=== PATIENT | female | born 1935 | race Caucasian/White ===

== ENCOUNTER → 2018-04-29 | Outpatient (REF) | payer OTHER, MEDICARE ==
[2018-04-29 09:28] LABS: BASO % 0.3 % (0.0-1.0); EOS # 0.2 10^3/uL (0.0-0.50); EOS % 3.2 % (0.0-3.0); HEMATOCRIT 39.3 % (36.0-47.0); HEMOGLOBIN 12.8 g/dl (12.0-15.5); IMMATURE GRANULOCYTE % 0.5 % (0-3.0); LYMPH # 2.4 10^3/uL (1.5-4.5); LYMPH % 32.3 % (24.0-44.0); MEAN CORPUSCULAR HEMOGLOBIN 30.4 pg (27.0-33.0); MEAN CORPUSCULAR HGB CONC 32.6 g/dl (32.0-36.5); MEAN CORPUSCULAR VOLUME 93.3 fl (80.0-96.0); MONO # 0.6 10^3/uL (0.0-0.8); MONO % 8.1 % (0.0-5.0); NEUTROPHILS # 4.2 10^3/uL (1.8-7.7); NEUTROPHILS % 55.6 % (36.0-66.0); PLATELET COUNT, AUTOMATED 292 10^3/uL (150-450); RED BLOOD COUNT 4.21 10^6/uL (4.00-5.40); RED CELL DISTRIBUTION WIDTH 13.3 % (11.5-14.5); WHITE BLOOD COUNT 7.6 10^3/uL (4.0-10.0)
[2018-04-29 09:53] LABS: ESTIMATED AVERAGE GLUCOSE 120 MG/DL (60-110); HEMOGLOBIN A1c 5.8 %
[2018-04-29 10:06] LABS: ALBUMIN 3.8 GM/DL (3.2-5.2); ALBUMIN/GLOBULIN RATIO 1.23 (1.00-1.93); ALKALINE PHOSPHATASE 92 U/L (45-117); ALT/SGPT 29 U/L (12-78); ANION GAP 10 MEQ/L (8-16); AST/SGOT 15 U/L (7-37); BILIRUBIN,TOTAL 0.5 MG/DL (0.2-1.0); BLOOD UREA NITROGEN 11 MG/DL (7-18); CALCIUM LEVEL 8.7 MG/DL (8.8-10.2); CARBON DIOXIDE LEVEL 25 MEQ/L (21-32); CHLORIDE LEVEL 105 MEQ/L (98-107); CHOLESTEROL LEVEL 212 MG/DL (<200); CHOLESTEROL RISK RATIO 3.419 (<5); CREATININE FOR GFR 0.52 MG/DL (0.55-1.30); FREE T4 1.08 NG/DL (0.76-1.46); GLOMERULAR FILTRATION RATE > 60.0 (>32); GLUCOSE, FASTING 112 MG/DL (70-100); HDL CHOLESTEROL 62 MG/DL (>40); LDL CHOLESTEROL 124 MG/DL (<100); MAGNESIUM LEVEL 2.1 MG/DL (1.8-2.4); NON-HDL-C 150 MG/DL; POTASSIUM SERUM 4.2 MEQ/L (3.5-5.1); SODIUM LEVEL 140 MEQ/L (136-145); TOTAL PROTEIN 6.9 GM/DL (6.4-8.2); TRIGLYCERIDES LEVEL 131 MG/DL (<150)
[2018-04-29 10:21] LABS: PTH INTACT 149.5 PG/ML (18.5-88.0); TOTAL 25(OH) VITAMIN D 40.4 NG/ML (30.0-100.0)
== END ==
DX: E03.9 Hypothyroidism, unspecified (principal); I10 Essential (primary) hypertension; E55.9 Vitamin D deficiency, unspecified; E78.5 Hyperlipidemia, unspecified; Z79.899 Other long term (current) drug therapy
CPT/HCPCS: 83735

== ENCOUNTER → 2018-07-01 | Outpatient (REF) | payer OTHER, MEDICARE ==
[2018-07-02 13:10] LABS: APPEARANCE, URINE HAZY (CLEAR); BACTERIA, URINE AUTO 2+ (NEGATIVE); BILIRUBIN, URINE AUTO NEGATIVE (NEGATIVE); BLOOD, URINE BLOOD NEGATIVE (NEGATIVE); COLOR, URINE YELLOW (YELLOW); GLUCOSE, URINE (UA) AUTO NEGATIVE (NEGATIVE); KETONE, URINE AUTO NEGATIVE (NEGATIVE); LEUKOCYTE ESTERASE, URINE AUTO 1+ (NEGATIVE); MUCUS, URINE SMALL (NEGATIVE); NITRITE, URINE AUTO POSITIVE (NEGATIVE); PROTEIN, URINE AUTO NEGATIVE (NEGATIVE); RBC, URINE AUTO 1 /HPF (0-3); SPECIFIC GRAVITY URINE AUTO 1.005 (1.002-1.035); SQUAMOUS EPITHELIAL CELL UR AU 0 /HPF (0-6); UROBILINOGEN, URINE AUTO 0.2 mg/dL (0.0-2.0); WBC, URINE AUTO 9 /HPF (0-3)
== END ==
LOC: M LAB REF 12:46
PROVIDERS: ATTEND Obstetrics & Gynecology
DX: Z91.89 Other specified personal risk factors, not elsewhere classified (principal); N32.81 Overactive bladder

== ENCOUNTER → 2018-11-10 | Outpatient (REF) | payer MEDICARE, OTHER ==
[2018-11-10 14:01] LABS: APPEARANCE, URINE CLEAR (CLEAR); BACTERIA, URINE AUTO 3+ (NEGATIVE); BILIRUBIN, URINE AUTO NEGATIVE (NEGATIVE); BLOOD, URINE BLOOD NEGATIVE (NEGATIVE); COLOR, URINE STRAW (YELLOW); GLUCOSE, URINE (UA) AUTO NEGATIVE (NEGATIVE); KETONE, URINE AUTO NEGATIVE (NEGATIVE); LEUKOCYTE ESTERASE, URINE AUTO TRACE (NEGATIVE); NITRITE, URINE AUTO NEGATIVE (NEGATIVE); PROTEIN, URINE AUTO NEGATIVE (NEGATIVE); RBC, URINE AUTO 1 /HPF (0-3); SPECIFIC GRAVITY URINE AUTO 1.004 (1.002-1.035); SQUAMOUS EPITHELIAL CELL UR AU 0 /HPF (0-6); UROBILINOGEN, URINE AUTO 0.2 mg/dL (0.0-2.0); WBC, URINE AUTO 2 /HPF (0-3)
== END ==
LOC: M SFHCPLAZ 12:22
PROVIDERS: ATTEND Nurse Practitioner Family
DX: R32 Unspecified urinary incontinence (principal)

== ENCOUNTER → 2019-01-09 | Outpatient (REF) | payer MEDICARE, OTHER ==
[2019-01-09 16:02] LABS: APPEARANCE, URINE CLEAR (CLEAR); BACTERIA, URINE AUTO 1+ (NEGATIVE); BILIRUBIN, URINE AUTO NEGATIVE (NEGATIVE); BLOOD, URINE BLOOD NEGATIVE (NEGATIVE); COLOR, URINE STRAW (YELLOW); GLUCOSE, URINE (UA) AUTO NEGATIVE (NEGATIVE); KETONE, URINE AUTO NEGATIVE (NEGATIVE); LEUKOCYTE ESTERASE, URINE AUTO TRACE (NEGATIVE); MUCUS, URINE SMALL (NEGATIVE); NITRITE, URINE AUTO NEGATIVE (NEGATIVE); PROTEIN, URINE AUTO NEGATIVE (NEGATIVE); RBC, URINE AUTO 0 /HPF (0-3); SPECIFIC GRAVITY URINE AUTO 1.004 (1.002-1.035); SQUAMOUS EPITHELIAL CELL UR AU 0 /HPF (0-6); UROBILINOGEN, URINE AUTO 0.2 mg/dL (0.0-2.0); WBC, URINE AUTO 4 /HPF (0-3)
== END ==
LOC: M LAB REF 09:38
PROVIDERS: ATTEND Family Medicine
DX: R41.82 Altered mental status, unspecified (principal)

== ENCOUNTER → 2019-01-12 | Outpatient (REF) | payer MEDICARE, OTHER ==
[2019-01-12 09:53] LABS: BASO % 0.2 % (0.0-1.0); EOS # 0.2 10^3/uL (0.0-0.50); EOS % 2.7 % (0.0-3.0); HEMOGLOBIN 12.5 g/dl (12.0-15.5); LYMPH # 2.5 10^3/uL (1.5-4.5); MEAN CORPUSCULAR HEMOGLOBIN 30.6 pg (27.0-33.0); MEAN CORPUSCULAR HGB CONC 32.9 g/dl (32.0-36.5); MEAN CORPUSCULAR VOLUME 92.9 fl (80.0-96.0); MONO # 0.6 10^3/uL (0.0-0.8); MONO % 7.4 % (0.0-5.0); NEUTROPHILS # 4.9 10^3/uL (1.8-7.7); NEUTROPHILS % 59.3 % (36.0-66.0); PLATELET COUNT, AUTOMATED 277 10^3/uL (150-450); RED BLOOD COUNT 4.09 10^6/uL (4.00-5.40); WHITE BLOOD COUNT 8.3 10^3/uL (4.0-10.0)
[2019-01-12 10:20] LABS: HEMOGLOBIN A1c 6.4 %
[2019-01-12 10:30] LABS: ALBUMIN 3.6 GM/DL (3.2-5.2); ALT/SGPT 16 U/L (12-78); BILIRUBIN,TOTAL 0.3 MG/DL (0.2-1.0); BLOOD UREA NITROGEN 10 MG/DL (7-18); CARBON DIOXIDE LEVEL 28 MEQ/L (21-32); CHLORIDE LEVEL 103 MEQ/L (98-107); CHOLESTEROL LEVEL 161 MG/DL (<200); CHOLESTEROL RISK RATIO 2.236 (<5); CREATININE FOR GFR 0.49 MG/DL (0.55-1.30); FREE T4 1.03 NG/DL (0.76-1.46); GLOMERULAR FILTRATION RATE > 60.0 (>32); GLUCOSE, FASTING 87 MG/DL (70-100); HDL CHOLESTEROL 72 MG/DL (>40); LDL CHOLESTEROL 70 MG/DL (<100); MAGNESIUM LEVEL 2.2 MG/DL (1.8-2.4); NON-HDL-C 89 MG/DL; POTASSIUM SERUM 3.9 MEQ/L (3.5-5.1); SODIUM LEVEL 140 MEQ/L (136-145); TOTAL PROTEIN 6.6 GM/DL (6.4-8.2); TRIGLYCERIDES LEVEL 94 MG/DL (<150)
[2019-01-12 10:31] LABS: TOTAL 25(OH) VITAMIN D 31.9 NG/ML (30.0-100.0); VITAMIN B12 LEVEL 297 PG/ML (247-911)
== END ==
PROVIDERS: ATTEND Nurse Practitioner Family
DX: I10 Essential (primary) hypertension (principal); E03.9 Hypothyroidism, unspecified; R73.09 Other abnormal glucose; E78.5 Hyperlipidemia, unspecified; E55.9 Vitamin D deficiency, unspecified; R41.3 Other amnesia

== ENCOUNTER → 2019-01-22 | Outpatient (REF) | payer MEDICARE, OTHER ==
[2019-01-22 16:51] LABS: APPEARANCE, URINE CLEAR (CLEAR); BACTERIA, URINE AUTO 1+ (NEGATIVE); BILIRUBIN, URINE AUTO NEGATIVE (NEGATIVE); BLOOD, URINE BLOOD NEGATIVE (NEGATIVE); COLOR, URINE YELLOW (YELLOW); GLUCOSE, URINE (UA) AUTO NEGATIVE (NEGATIVE); KETONE, URINE AUTO NEGATIVE (NEGATIVE); LEUKOCYTE ESTERASE, URINE AUTO 1+ (NEGATIVE); NITRITE, URINE AUTO NEGATIVE (NEGATIVE); PROTEIN, URINE AUTO NEGATIVE (NEGATIVE); RBC, URINE AUTO 3 /HPF (0-3); SPECIFIC GRAVITY URINE AUTO 1.014 (1.002-1.035); SQUAMOUS EPITHELIAL CELL UR AU 0 /HPF (0-6); WBC, URINE AUTO 20 /HPF (0-3)
== END ==
PROVIDERS: ATTEND Nurse Practitioner Family
DX: N39.0 Urinary tract infection, site not specified (principal)

== ENCOUNTER → 2019-02-09 | Outpatient (REF) | payer MEDICARE, OTHER | LOC: M SMT 17:20 | PROVIDERS: ATTEND Urology | DX: N39.0 Urinary tract infection, site not specified (principal) | CPT/HCPCS: 51701; 87088; 87186; G0463 ==

== ENCOUNTER → 2019-04-27 | Outpatient (CLI) | payer MEDICARE, OTHER ==
--- NOTE | 2019-04-27 12:55 | REP ---
Clinical: Cough. Technique: PA and lateral. Comparison: 03/17/2016. Findings: [place] rods overlying the thoracolumbar spine and mediastinum. The cardiac silhouette is grossly within normal limits. Lung grimes demonstrate chronic-appearing changes without obvious acute consolidation, effusion, or pneumothorax. Impression: Chronic-appearing changes. No obvious acute cardiopulmonary process. Electronically Signed by Arie Georges MD 04/27/2019 12:47 P
[2019-04-27 14:12] LABS: BASO % 0.6 % (0.0-1.0); EOS # 0.2 10^3/uL (0.0-0.5); EOS % 2.9 % (0.0-3.0); HEMATOCRIT 40.5 % (36.0-47.0); HEMOGLOBIN 13.1 g/dl (12.0-15.5); LYMPH # 2.4 10^3/uL (1.5-5.0); LYMPH % 32.6 % (24.0-44.0); MEAN CORPUSCULAR HEMOGLOBIN 30.8 pg (27.0-33.0); MEAN CORPUSCULAR HGB CONC 32.3 g/dl (32.0-36.5); MEAN CORPUSCULAR VOLUME 95.1 fl (80.0-96.0); MONO # 0.8 10^3/uL (0.0-0.8); MONO % 10.7 % (0.0-5.0); NEUTROPHILS # 3.8 10^3/uL (1.5-8.5); NEUTROPHILS % 52.8 % (36.0-66.0); PLATELET COUNT, AUTOMATED 264 10^3/uL (150-450); RED BLOOD COUNT 4.26 10^6/uL (4.00-5.40); WHITE BLOOD COUNT 7.3 10^3/uL (4.0-10.0)
[2019-04-27 14:41] LABS: ALBUMIN 3.6 GM/DL (3.2-5.2); ALT/SGPT 21 U/L (12-78); BILIRUBIN,TOTAL 0.3 MG/DL (0.2-1.0); BLOOD UREA NITROGEN 11 MG/DL (7-18); CALCIUM LEVEL 9.4 MG/DL (8.8-10.2); CARBON DIOXIDE LEVEL 31 MEQ/L (21-32); CHLORIDE LEVEL 105 MEQ/L (98-107); CREATININE FOR GFR 0.56 MG/DL (0.55-1.30); GLOMERULAR FILTRATION RATE > 60.0 (>32); GLUCOSE, FASTING 91 MG/DL (70-100); POTASSIUM SERUM 4.2 MEQ/L (3.5-5.1); SODIUM LEVEL 141 MEQ/L (136-145)
== END ==
LOC: M WUC 12:28
PROVIDERS: ATTEND Physician Assistant
DX: R05 Cough (principal); J06.9 Acute upper respiratory infection, unspecified

== ENCOUNTER 2019-05-19 22:33 | Emergency (ER) | payer MEDICARE, OTHER, MEDICAID ==
[~2019-05-19] VITALS: Ht 157.5 cm; Wt 106.8 kg
[2019-05-19] MEDS ORDERED: ACETAMINOPHEN 500 MG TAB PO ONE (23:00)
--- NOTE | 2019-05-19 23:56 | REPVR ---
PROCEDURE INFORMATION: Exam: CT Thoracic Spine Without Contrast Exam date and time: 05/19/2019 10:48 PM Age: 83 years old Clinical indication: Pain in thoracic spine TECHNIQUE: Imaging protocol: Computed tomography images of the thoracic spine without contrast. Radiation optimization: All CT scans at this facility use at least one of these dose optimization techniques: automated exposure control; mA and/or kV adjustment per patient size (includes targeted exams where dose is matched to clinical indication); or iterative reconstruction. COMPARISON: No relevant prior studies available. FINDINGS: Vertebrae: Changes from extensive thoracolumbar spinal fusion are present. Old compression fracture at T5-6 with grade 3 anterolisthesis. Additional old compression deformities at T9 and T10 with prior vertebroplasty at T10. No acute fracture is identified. Extensive posterior fusion of the posterior elements is noted. Discs/Spinal canal/Neural foramina: The left T11 screw appears to partially traverse the lateral aspect of the central spinal canal. Other screws are in expected location. The right connecting mily is fractured at the L3-L4 level. Remainder of the hardware appears to be intact. Transpedicular screws appear intact. Soft tissues: Unremarkable. IMPRESSION: 1. Changes of extensive posterior fusion as above. 2. Old compression deformity at T5-6 with anterolisthesis. Old compression deformities at T9-10. No acute fracture or other subluxation. Electronically signed by: Gilbert Walker On 05/19/2019 23:55:50 PM
[2019-05-20 00:01] VITALS: BP 197/86
== END 2019-05-20 00:41 | disposition home or self-care (01) ==
LOC: M ED 22:33
DX: G89.29 Other chronic pain (principal); M54.9 Dorsalgia, unspecified; I10 Essential (primary) hypertension; E78.5 Hyperlipidemia, unspecified; M41.9 Scoliosis, unspecified; Z86.73 Personal history of transient ischemic attack (TIA), and cerebral infarction without residual deficits; E66.9 Obesity, unspecified; Z88.5 Allergy status to narcotic agent; Z88.8 Allergy status to other drugs, medicaments and biological substances

== ENCOUNTER → 2019-05-22 | Outpatient (REF) | payer MEDICARE, OTHER, MEDICAID ==
[2019-05-22 12:09] LABS: APPEARANCE, URINE CLOUDY (CLEAR); BACTERIA, URINE AUTO 3+ (NEGATIVE); BILIRUBIN, URINE AUTO NEGATIVE (NEGATIVE); BLOOD, URINE BLOOD NEGATIVE (NEGATIVE); COLOR, URINE YELLOW (YELLOW); GLUCOSE, URINE (UA) AUTO NEGATIVE (NEGATIVE); KETONE, URINE AUTO TRACE mg/dL (NEGATIVE); LEUKOCYTE ESTERASE, URINE AUTO 3+ (NEGATIVE); MUCUS, URINE LARGE (NEGATIVE); NITRITE, URINE AUTO POSITIVE (NEGATIVE); PROTEIN, URINE AUTO NEGATIVE (NEGATIVE); RBC, URINE AUTO 10 /HPF (0-3); SPECIFIC GRAVITY URINE AUTO 1.027 (1.002-1.035); SQUAMOUS EPITHELIAL CELL UR AU 2 /HPF (0-6); UROBILINOGEN, URINE AUTO 0.2 mg/dL (0.0-2.0); WBC, URINE AUTO 130 /HPF (0-3)
== END ==
LOC: M LAB REF 11:24
PROVIDERS: ATTEND Nurse Practitioner Family
DX: N39.0 Urinary tract infection, site not specified (principal)

== ENCOUNTER → 2019-10-08 | Outpatient (REF) | payer MEDICARE, OTHER, MEDICAID ==
[2019-10-08 13:40] LABS: BASO % 0.3 % (0.0-1.0); EOS # 0.2 10^3/uL (0.0-0.5); EOS % 2.2 % (0.0-3.0); HEMATOCRIT 34.4 % (36.0-47.0); HEMOGLOBIN 11.4 g/dl (12.0-15.5); LYMPH # 2.7 10^3/uL (1.5-5.0); LYMPH % 30.4 % (24.0-44.0); MEAN CORPUSCULAR HEMOGLOBIN 31.2 pg (27.0-33.0); MEAN CORPUSCULAR HGB CONC 33.1 g/dl (32.0-36.5); MEAN CORPUSCULAR VOLUME 94.2 fl (80.0-96.0); MONO # 0.7 10^3/uL (0.0-0.8); MONO % 7.7 % (0.0-5.0); NEUTROPHILS # 5.2 10^3/uL (1.5-8.5); NEUTROPHILS % 58.9 % (36.0-66.0); PLATELET COUNT, AUTOMATED 261 10^3/uL (150-450); RED BLOOD COUNT 3.65 10^6/uL (4.00-5.40); WHITE BLOOD COUNT 8.8 10^3/uL (4.0-10.0)
[2019-10-08 14:36] LABS: ALBUMIN 3.5 GM/DL (3.2-5.2); ALT/SGPT 18 U/L (12-78); BILIRUBIN,TOTAL 0.2 MG/DL (0.2-1.0); BLOOD UREA NITROGEN 14 MG/DL (7-18); CALCIUM LEVEL 8.9 MG/DL (8.8-10.2); CARBON DIOXIDE LEVEL 28 MEQ/L (21-32); CHLORIDE LEVEL 105 MEQ/L (98-107); CREATININE FOR GFR 0.48 MG/DL (0.55-1.30); GLOMERULAR FILTRATION RATE > 60.0 (>32); GLUCOSE, FASTING 113 MG/DL (70-100); POTASSIUM SERUM 3.9 MEQ/L (3.5-5.1); SODIUM LEVEL 139 MEQ/L (136-145); TOTAL PROTEIN 6.3 GM/DL (6.4-8.2)
[2019-10-08 17:33] LABS: APPEARANCE, URINE CLEAR (CLEAR); BACTERIA, URINE AUTO NEGATIVE (NEGATIVE); BILIRUBIN, URINE AUTO NEGATIVE (NEGATIVE); BLOOD, URINE BLOOD NEGATIVE (NEGATIVE); COLOR, URINE YELLOW (YELLOW); GLUCOSE, URINE (UA) AUTO NEGATIVE (NEGATIVE); KETONE, URINE AUTO NEGATIVE (NEGATIVE); LEUKOCYTE ESTERASE, URINE AUTO 1+ (NEGATIVE); NITRITE, URINE AUTO NEGATIVE (NEGATIVE); PROTEIN, URINE AUTO NEGATIVE (NEGATIVE); RBC, URINE AUTO 1 /HPF (0-3); SQUAMOUS EPITHELIAL CELL UR AU 0 /HPF (0-6); UROBILINOGEN, URINE AUTO 0.2 mg/dL (0.0-2.0); WBC, URINE AUTO 13 /HPF (0-3)
== END ==
PROVIDERS: ATTEND Family Medicine
DX: R41.0 Disorientation, unspecified (principal)

== ENCOUNTER → 2019-11-01 | Outpatient (REF) | payer MEDICARE, OTHER, MEDICAID | PROVIDERS: ATTEND Physician Assistant Medical | DX: R30.0 Dysuria (principal) ==

== ENCOUNTER → 2019-11-01 | Outpatient (REF) | payer MEDICARE, OTHER, MEDICAID ==
[2019-11-01 18:52] LABS: APPEARANCE, URINE CLEAR (CLEAR); BACTERIA, URINE AUTO NEGATIVE (NEGATIVE); BILIRUBIN, URINE AUTO NEGATIVE (NEGATIVE); BLOOD, URINE BLOOD NEGATIVE (NEGATIVE); COLOR, URINE YELLOW (YELLOW); GLUCOSE, URINE (UA) AUTO NEGATIVE (NEGATIVE); KETONE, URINE AUTO NEGATIVE (NEGATIVE); LEUKOCYTE ESTERASE, URINE AUTO 2+ (NEGATIVE); MUCUS, URINE SMALL (NEGATIVE); NITRITE, URINE AUTO NEGATIVE (NEGATIVE); PROTEIN, URINE AUTO NEGATIVE (NEGATIVE); RBC, URINE AUTO 2 /HPF (0-3); SPECIFIC GRAVITY URINE AUTO 1.016 (1.002-1.035); SQUAMOUS EPITHELIAL CELL UR AU 0 /HPF (0-6); UROBILINOGEN, URINE AUTO 0.2 mg/dL (0.0-2.0); WBC, URINE AUTO 45 /HPF (0-3)
== END ==
PROVIDERS: ATTEND Family Medicine
DX: R30.0 Dysuria (principal); R41.0 Disorientation, unspecified

== ENCOUNTER 2019-11-09 15:01 | Inpatient (IN) | payer MEDICARE, OTHER, MEDICAID ==
[2019-11-09 15:29] LABS: BASO % 0.3 % (0.0-1.0); EOS # 0.2 10^3/uL (0.0-0.5); EOS % 1.8 % (0.0-3.0); HEMOGLOBIN 11.3 g/dl (12.0-15.5); LYMPH # 3.3 10^3/uL (1.5-5.0); LYMPH % 38.6 % (24.0-44.0); MEAN CORPUSCULAR HEMOGLOBIN 30.6 pg (27.0-33.0); MEAN CORPUSCULAR HGB CONC 32.3 g/dl (32.0-36.5); MEAN CORPUSCULAR VOLUME 94.9 fl (80.0-96.0); MONO # 0.7 10^3/uL (0.0-0.8); MONO % 7.7 % (0.0-5.0); NEUTROPHILS # 4.4 10^3/uL (1.5-8.5); NEUTROPHILS % 51.4 % (36.0-66.0); PLATELET COUNT, AUTOMATED 259 10^3/uL (150-450); RED BLOOD COUNT 3.69 10^6/uL (4.00-5.40); WHITE BLOOD COUNT 8.7 10^3/uL (4.0-10.0)
[2019-11-09] MEDS ORDERED: LEVO50TA45 PO (15:44)
[2019-11-09] MEDS ORDERED: OCUVTAB4 PO (15:44)
[2019-11-09] MEDS ORDERED: GABA-1171 PO (15:44)
[2019-11-09] MEDS ORDERED: BRIM0.2S13 OU (15:44)
[2019-11-09] MEDS ORDERED: CALC1TAB27 PO (15:44)
[2019-11-09] MEDS ORDERED: LOSA50TA88 PO (15:44)
[2019-11-09] MEDS ORDERED: CRAN400C PO (15:44)
[2019-11-09] MEDS ORDERED: VITA100018 PO (15:44)
[2019-11-09] MEDS ORDERED: TIMO0.5S29 OU (15:44)
[2019-11-09] MEDS ORDERED: CELE100C PO (15:44)
[2019-11-09] MEDS ORDERED: CVS1CHW13 PO (15:44)
[2019-11-09] MEDS ORDERED: MIRA3350 PO ×2 (15:44)
[2019-11-09] MEDS ORDERED: ARIC1TAB PO (15:44)
[2019-11-09] MEDS ORDERED: ASPI-161 PO (15:44)
[2019-11-09] MEDS ORDERED: MEMA1TAB3 PO (15:44)
[2019-11-09] MEDS ORDERED: CYMB1CAP5 PO (15:44)
[2019-11-09] MEDS ORDERED: XALA0.007 OU (15:44)
[2019-11-09] MEDS ORDERED: QC A650T3 PO (15:44)
[2019-11-09] MEDS ORDERED: VITAD1000T PO (15:44)
[2019-11-09] MEDS ORDERED: CRES10TA PO (15:44)
[2019-11-09] MEDS ORDERED: COLA100C5 PO (15:44)
[2019-11-09] MEDS ORDERED: REFR0.1D OU (15:44)
[2019-11-09] MEDS ORDERED: ACET1TAB37 PO (15:44)
[2019-11-09] MEDS ORDERED: MACR50CA10 PO (15:44)
--- NOTE | 2019-11-09 16:04 | REP ---
CT brain: 11/09/2019. Indication: Stroke. Technique: Unenhanced axial CT images of the brain were obtained from skull base to vertex with coronal reconstructions provided. Comparison: 03/07/2016. Findings: There is a new punctate focus of hyperdensity within the left basal ganglia without associated mass effect or significant surrounding edema. An there is a similar-appearing punctate focus of hyperdensity within the right cerebellum, again without significant mass effect or surrounding edema. There is a new area of hypoattenuation which involves the cortex as well in the posterior left temporal lobe. Patchy areas of an white matter hypoattenuation are present. There is no evidence of hydrocephalous. Right-sided score of buckling is noted. Age-related volume loss is present. Impression: Subacute to chronic appearing posterior left temporal region / MCA infarction. Punctate foci of hyper attenuation within the left basal ganglia and right cerebellum. Small acute hemorrhages are not excluded. Chronic appearing left thalamic infarction. Age related volume loss and sequelae of chronic microangiopathic ischemic disease. Electronically Signed by Javier Marie DO 11/09/2019 03:55 P
[2019-11-09 16:19] LABS: CK-MB VALUE MASS 2.7 NG/ML (<3.6); CPK CREATINE PHOSPHOKINASE 73 U/L (26-192); TROPONIN I < 0.02 NG/ML (< 0.10)
[2019-11-09] MEDS ORDERED: LABETALOL 100MG/20ML VIAL IV STA ×2 (16:26→17:35)
[2019-11-09] MEDS ORDERED: MECLIZINE 25 MG TABLET PO ONE (16:30)
[2019-11-09 16:35] LABS: INR 1.04; PROTHROMBIN TIME 13.3 SECONDS (11.8-14.0)
--- NOTE | 2019-11-09 16:43 | REP ---
CHEST, SINGLE VIEW: Single view of the chest is performed. There is no acute infiltrate or pulmonary edema. There is mild to moderate cardiomegaly. There is calcification and tortuosity of the thoracic aorta. Metallic rods and screws are seen in the thoracic spine. IMPRESSION: No acute pulmonary disease. Cardiomegaly. Electronically Signed by Dean Michele MD 11/11/2019 12:55 A
[2019-11-09] MEDS ORDERED: NITROFURANTOIN (MACROBID) 100 MG CAP PO ONE (17:15)
--- NOTE | 2019-11-09 18:43 | HPEPDOC ---
[facility] Medical History & Physical Date of Admission Nov 09, 2019 Date of Service: Nov 09, 2019 Primary Care Physician: MARY LOU KITCHEN Attending Physician: JESÚS NESBITT MD History and Physical Time of service 6:33 PM CHIEF COMPLAINT: Headache HISTORY OF PRESENT ILLNESS: This is an 84-year-old female who developed a frontal headache today. When asked to describe the nature or the severity of the headache, she said she didn't quite know how to describe it. She also complained of feeling dizzy and weak. She has a history of hypertension and denies missing any doses of her medications. On arrival, blood pressure was 224/97. She received a total of 40 mg of IV labetalol; thereafter her blood pressure improved to 168/76. CT of the head showed a possible subacute infarct ROS: negative except as listed in HPI PAST MEDICAL/ SURGICAL HISTORY: Chronic HTN History of CVA Hypothyroidism Impaired memory/dementia? Dyslipidemia Open angle glaucoma Osteoporosis OA Chronic back pain/spinal stenosis / Laminectomy and spinal fusions, S1-L4, L4-T9 / placement of spinal stimulator GERD Age-related macular degeneration. Neurogenic bladder / Bladder suspension surgery Status post D&C. Resection of fibrous Hysterectomy Left breast biopsy Retinal detachment surgery for right eye Bilateral cataract surgery Oculoplastic, left eye Rotator cuff repair Steady gait, uses walker SOCIAL HISTORY: Lives at a jail He doesn't smoke FAMILY HISTORY: CAD Emphysema ALLERGIES: Please see below. HOME MEDICATIONS: Please see below. PHYSICAL EXAMINATION: VITAL SIGNS: Please see below. GEN: well-nourished / well developed/ NAD HEENT: NCAT CVS: RRR/NMRG LUNGS: able to speak full sentences without stopping to take a breath / lungs are clear to auscultation bilaterally on room air ABDOMEN: Contour ( obese) MSK/EXTREMITIES: range of motion intact in all 4 extremities NEURO: speech is not dysarthric PSYCH: alert and oriented to person place and time/ able to understand and follow all commands LABORATORY DATA: Immature Granulocyte % (Auto) 0.2, Neutrophils (%) (Auto) 51.4, Lymphocytes (%) (Auto) 38.6, Monocytes (%) (Auto) 7.7H, Eosinophils (%) (Auto) 1.8, Basophils (%) (Auto) 0.3, Neutrophils # (Auto) 4.4, Lymphocytes # (Auto) 3.3, Monocytes # (Auto) 0.7, Eosinophils # (Auto) 0.2, Basophils # (Auto) 0.0, Nucleated Red Blood Cells % (auto) 0.0 11/09/19 15:14: Prothrombin Time 13.3, Prothromb Time International Ratio 1.04 11/09/19 15:22: POC Glucose (Misc Panel) 115H, POC Sodium (Misc Panel) 138, POC Potassium (Misc Panel) 4.2, POC Chloride (Misc Panel) 98, POC Total CO2 (Misc Panel) 27.0, POC Blood Urea Nitrogen (Misc Panel 16, POC Ionized Calcium (Misc Panel) 4.7, POC Creatinine (Misc Panel) 0.5L, POC Hematocrit (Misc Panel) 36.0L, Total Creatine Kinase 73, Creatine Kinase MB 2.7, Creatine Kinase MB Relative Index 3.70, Troponin I < 0.02 11/09/19 15:35: Urine Color YELLOW, Urine Appearance CLEAR, Urine pH 7.0, Urine Specific [place] 1.009, Urine Protein NEGATIVE, Urine Glucose (UA) NEGATIVE, Urine Ketones NEGATIVE, Urine Blood NEGATIVE, Urine Nitrite NEGATIVE, Urine Bilirubin NEGATIVE, Urine Urobilinogen 0.2, Urine Leukocyte Esterase 1+H, Urine WBC (Auto) 13H, Urine RBC (Auto) 3, Urine Hyaline Casts (Auto) 0, Urine Bacteria (Auto) NEGATIVE, Urine Squamous Epithelial Cells 0, Urine Amorphous Sediment SMALLH, Urine Sperm (Auto) IMAGING: Chest x-ray "IMPRESSION: No acute pulmonary disease. Cardiomegaly." CT of the head "Impression: Subacute to chronic appearing posterior left temporal region / MCA infarction. Punctate foci of hyper attenuation within the left basal ganglia and right cerebellum. Small acute hemorrhages are not excluded. Chronic appearing left thalamic infarction. Age related volume loss and sequelae of chronic microangiopathic ischemic disease." MICROBIOLOGY: 11/09/19 Urine Culture, Received Pending ASSESSMENT: Ms. Damon is an 84-year-old with a history of hypertension, CVA, hypothyroidism, dyslipidemia, osteoporosis, OA, and unsteady gait who is admitted for evaluation of hypertensive urgency. PLAN: 1. Uncontrolled hypertension Hypertensive Urgency , resolved after receiving labetalol Her primary related symptoms are a headache and dizziness It's unclear what caused the acute elevation in her blood pressure at this point in time it could be Celebrex ? Her troponin and renal function are within normal limits. Plan: Admit to PCU / target BP of <160/100 /f/u TSH, MRI and MRA of the head to definitively rule out stroke / resume home meds losartan 50 mg daily + at amlodipine 5 mg daily / low salt diet / avoid NSAIDs including Celebrex/she may need a sleep study to rule out coexisting sleep apnea on an outpatient basis 2. Weakness - PT / f/u MRI/MRA 3. Hx of CVA/ dyslipidemia - ASA, rosuvastatin 4. hypothyroidism - levothyroxine 5. Chronic back pain - old Celebrex / scheduled Tylenol with diclofenac patch 6. Osteoporosis - calcium with vitamin D DVT PROPHYLAXIS: Lovenox DISPOSITION: Back to jail pending clinical course / PFS consult has been placed Home Medications Scheduled Acetaminophen (Acetaminophen ER) 650 Mg Tablet.er, 1,300 MG PO Q8H Amlodipine Besylate (Amlodipine Besylate) 5 Mg Tablet, 5 MG PO DAILY Aspirin (Aspirin EC) 81 Mg Tablet.dr, 81 MG PO DAILY Brimonidine Tartrate (Brimonidine Tartrate) 0.2% 5ML Drops, 1 DROP OU BID Calcium Carbonate/Vitamin D3 (Calcium 600-Vit D3 800 Tablet) 1 Each Tablet, 1 TAB PO DAILY Carboxymethylcellulose Sodium (Refresh Plus) 1 Each Droperette, 1 DROP OU TID SELF ADMINISTERS AT SSV Cholecalciferol (Vitamin D3) (Vitamin D3) 1,000 Unit Tablet, 1,000 UNITS PO QAM Cranberry (Cranberry) 400 Mg Capsule, 400 MG PO BID Cyanocobalamin (Vitamin B-12) (Vitamin B-12) 1,000 Mcg Tablet, 1,000 MCG PO DAILY Diclofenac Epolamine (Diclofenac Epolamine) 1 Each Patch.td12, 1 PATCH TOP Q12H Docusate Sodium (Colace) 100 Mg Capsule, 100 MG PO BID Donepezil HCl (Aricept) 5 Mg Tablet, 5 MG PO QHS Duloxetine Hcl (Cymbalta) 30 Mg Capsule.dr, 30 MG PO QHS Gabapentin (Gabapentin) 100 Mg Capsule, 100 MG PO BID TAKES AT 0600 & 1200 Inulin (Fiber Gummies) 2 Gm Tab.chew, 1 CHW PO BID Latanoprost (Xalatan) 0.005% 2.5ML Drops, 1 DROP OU QHS Levothyroxine Sodium (Levoxyl) 50 Mcg Tablet, 50 MCG PO QAM Losartan Potassium (Losartan Potassium) 50 Mg Tablet, 50 MG PO DAILY Memantine HCl (Memantine HCl) 5 Mg Tablet, 5 MG PO BID Nitrofurantoin Macrocrystal (Macrodantin) 50 Mg Capsule, 50 MG PO DAILY Polyethylene Glycol 3350 (Miralax) 119 Gm Powder, 17 GM PO 2XW TAKES MON & FRI Rosuvastatin Calcium (Crestor) 10 Mg Tablet, 10 MG PO QAM Timolol Maleate (Timolol Maleate) 0.5% 5ML Drops, 1 DROP OU BID Vit A/Vit C/Vit E/Zinc/Copper (Preservision Areds Tablet) 1 Each Tablet, 1 TAB PO BID Scheduled PRN Polyethylene Glycol 3350 (Miralax) 119 Gm Powder, 17 GM PO DAILY PRN for CONSTIPATION Allergies Coded Allergies: codeine (Verified Allergy, Unknown, 05/19/19) dexamethasone (Verified Allergy, Unknown, 05/19/19) A-FIB/CHADSVASC A-FIB History Current/History of A-Fib/PAF?: No Current PO Anticoag Therapy: No JESÚS NESBITT MD Nov 09, 2019 18:43
[2019-11-09 19:04] LABS: FERRITIN 32 NG/ML (8-252); IRON (FE) 65 UG/DL (50-170); TOTAL IRON BINDING CAPACITY 342 UG/DL (250-450)
[2019-11-09 20:03] VITALS: BP 180/60
--- NOTE | 2019-11-09 20:18 | ECGEPIP ---
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
[2019-11-09] MEDS: DICLOFENAC EPOLAMINE 1.3 % PATCH TOP SCH (21:16)
[2019-11-09] MEDS: ACETAMINOPHEN 650MG ER TAB (TYLENOL ARTHRITIS) PO SCH (21:17)
[2019-11-09] MEDS: DULoxetine 30 MG CAP (CYMBALTA) PO SCH (21:17)
[2019-11-09] MEDS: DONEPEZIL 5 MG TAB PO SCH (21:17)
[2019-11-09] MEDS: LATANOPROST 0.005% OPHTH SOLN 2.5 ML OU SCH (21:17)
[2019-11-09] MEDS: MEMANTINE 5MG TABLET (NAMENDA) PO SCH (21:17)
[2019-11-09 21:30] VITALS: BP 150/60
[2019-11-09] MEDS ORDERED: SLF 3 ML SYR IV PRN (22:00)
[2019-11-09] MEDS: SLF 3 ML SYR IV SCH (22:04)
[2019-11-10] VITALS (7 sets, daily range): BP systolic 129–144; BP diastolic 58–78
[2019-11-10] MEDS: LEVOTHYROXINE 50MCG TABLET (0.05MG) PO SCH (05:03)
[2019-11-10] MEDS: GABAPENTIN 100 MG CAP PO SCH ×2 (05:03→12:19)
[2019-11-10] MEDS: ACETAMINOPHEN 650MG ER TAB (TYLENOL ARTHRITIS) PO SCH ×3 (05:03→20:52)
[2019-11-10] MEDS: SLF 3 ML SYR IV SCH ×3 (05:04→14:39)
[2019-11-10 05:09] LABS: HEMATOCRIT 33.1 % (36.0-47.0); HEMOGLOBIN 10.8 g/dl (12.0-15.5); MEAN CORPUSCULAR HEMOGLOBIN 30.9 pg (27.0-33.0); MEAN CORPUSCULAR HGB CONC 32.6 g/dl (32.0-36.5); MEAN CORPUSCULAR VOLUME 94.6 fl (80.0-96.0); PLATELET COUNT, AUTOMATED 234 10^3/uL (150-450); WHITE BLOOD COUNT 9.4 10^3/uL (4.0-10.0)
[2019-11-10 05:31] LABS: BLOOD UREA NITROGEN 13 MG/DL (7-18); CALCIUM LEVEL 8.1 MG/DL (8.8-10.2); CARBON DIOXIDE LEVEL 28 MEQ/L (21-32); CHLORIDE LEVEL 110 MEQ/L (98-107); CREATININE FOR GFR 0.56 MG/DL (0.55-1.30); GLOMERULAR FILTRATION RATE > 60.0 (>32); GLUCOSE, FASTING 94 MG/DL (70-100); POTASSIUM SERUM 3.9 MEQ/L (3.5-5.1); SODIUM LEVEL 146 MEQ/L (136-145)
[2019-11-10] MEDS: MEMANTINE 5MG TABLET (NAMENDA) PO SCH ×2 (08:41→20:52)
[2019-11-10] MEDS: DICLOFENAC EPOLAMINE 1.3 % PATCH TOP SCH ×2 (08:41→20:52)
[2019-11-10] MEDS ORDERED: VITAMIN D 1,000 INTERNATIONAL UNITS TABLET PO SCH (09:00)
[2019-11-10] MEDS ORDERED: LOSARTAN 50MG TABLET PO SCH (09:00)
[2019-11-10] MEDS ORDERED: ASPIRIN 81 MG ENTERIC TAB PO SCH (09:00)
[2019-11-10] MEDS ORDERED: ROSUVASTATIN 10 MG TAB (CRESTOR) PO SCH (09:00)
[2019-11-10] MEDS ORDERED: amLODIPine 5 MG TAB PO SCH (09:00)
[2019-11-10] MEDS ORDERED: ENOXAPARIN 40MG/0.4ML SYRINGE (J1650 PER 10MG) SC SCH (09:00)
[2019-11-10] MEDS ORDERED: CALCIUM/VITAMIN D 500 MG TAB PO SCH (09:00)
--- NOTE | 2019-11-10 12:34 | IPNPDOC ---
Text Note Date of Service The patient was seen on 11/10/19. NOTE SUBJECTIVE: -Headache has resolved PHYSICAL EXAMINATION: VITAL SIGNS: Please see below. GEN: NAD HEENT: NCAT CVS: RRR, no m/r/g LUNGS: CTAB ABDOMEN: obese, soft, normoactive sounds, NTND EXTREMITIES: no LE edema, WWP NEURO: Grossly nonfocal examination with CN2-12 grossly intact and moving all extremities. PSYCH: AOx3 LABORATORY DATA: WBC 9.4 Hgb 10.8 platelets 234 na 146 K 3.9 Cr 0.56 IMAGING: Chest x-ray "IMPRESSION: No acute pulmonary disease. Cardiomegaly." CT of the head "Impression: Subacute to chronic appearing posterior left temporal region / MCA infarction. Punctate foci of hyper attenuation within the left basal ganglia and right cerebellum. Small acute hemorrhages are not excluded. Chronic appearing left thalamic infarction. Age related volume loss and sequelae of chronic microangiopathic ischemic disease." MICROBIOLOGY: 11/09/19 Urine Culture, NGTD ASSESSMENT: 84-year-old with a history of hypertension, CVA, hypothyroidism, dyslipidemia, osteoporosis, OA, and unsteady gait who is admitted for hypertensive urgency with evidence of a subacute infarct without . PLAN: 1. Uncontrolled hypertension: resolved after receiving labetalol -EKG stable from prior, troponin and renal function are within normal limits. -TSH wnl -continue home meds losartan 50 mg daily + at amlodipine 5 mg daily/ low salt diet / avoid NSAIDs including Celebrex/she may need a sleep study to rule out coexisting sleep apnea on an outpatient basis 2. Weakness: No actual deficits. Appears to be deconditioned. -PT/OT working with her, recommending STR -getting rapid covid-19 testing for placement 3. Hx of CVA - ASA, rosuvastatin 4. hypothyroidism - levothyroxine 5. dyslipidemia - rosuvastatin 6. osteoporosis - calcium with vitamin D 7. Chronic back pain - stop Celebrex, give scheduled Tylenol with diclofenac patch DVT PROPHYLAXIS: Lovenox DISPOSITION: Likely STR with ongoing PT/OT VS,Fishbone, I+O VS, Fishbone, I+O Laboratory Tests 11/09/19 15:11 11/10/19 04:53 Vital Signs Date Time Temp Pulse Resp B/P (MAP) Pulse Ox O2 Delivery O2 Flow Rate FiO2 11/10/19 08:40 141/65 11/10/19 07:56 97.0 66 18 94 Room Air I&O- Last 24 Hours up to 6 AM 11/10/19 06:00 Intake Total 240 ml Output Total 500 ml Balance -260 ml WILY ROBERTS MD Nov 10, 2019 09:40
[2019-11-10] MEDS ORDERED: DICL1PAT6 TOP (13:08)
[2019-11-10] MEDS ORDERED: AMLO5TAB6 PO (13:08)
[2019-11-10] MEDS ORDERED: ACE65ERTAB PO (13:08)
[2019-11-10] MEDS: DULoxetine 30 MG CAP (CYMBALTA) PO SCH (20:52)
[2019-11-10] MEDS: DONEPEZIL 5 MG TAB PO SCH (20:52)
[2019-11-10] MEDS: LATANOPROST 0.005% OPHTH SOLN 2.5 ML OU SCH (20:53)
[2019-11-11] VITALS: BP 158/62
[2019-11-11 04:00] VITALS: BP 160/60
[2019-11-11] MEDS: SLF 3 ML SYR IV SCH (06:06)
[2019-11-11] MEDS: GABAPENTIN 100 MG CAP PO SCH (06:06)
[2019-11-11] MEDS: ACETAMINOPHEN 650MG ER TAB (TYLENOL ARTHRITIS) PO SCH (06:06)
[2019-11-11] MEDS: LEVOTHYROXINE 50MCG TABLET (0.05MG) PO SCH (06:06)
--- NOTE | 2019-11-11 06:22 | DS.PDOC ---
Discharge Summary General Date of Admission Nov 09, 2019 at 18:28 Date of Discharge 11/11/2019 Attending Physician: WILY ROBERTS MD Discharge Summary PROCEDURES PERFORMED DURING STAY: None ADMITTING DIAGNOSES: 1. Hypertensive urgency DISCHARGE DIAGNOSES: Hypertensive urgency History of CVA Hypothyroidism Dementia Dyslipidemia Open angle glaucoma Osteoporosis OA Chronic back pain GERD Age-related macular degeneration. Neurogenic bladder COMPLICATIONS/CHIEF COMPLAINT: Hypertensive Urgency. HISTORY OF PRESENT ILLNESS: 84-year-old female who developed a frontal headache and felt dizzy and weak and was brought to the ED. She has a history of hypertension and denied missing any doses of her medications but on arrival, blood pressure was noted to be 224/97. HOSPITAL COURSE: While in the ED, she received a total of 40 mg of IV labetalol with marked improvement and she was admitted for hypertensive urgency. Workup was notable for CT head that showed a subacute to chronic appearing posterior left temporal region/MCA infarction as well as chronic appearing left thalamic infarction and age related volume loss and sequelae of chronic microangiopathic ischemic disease. Her exam was otherwise nofocal but was notably deconditioned and weak. While inpatient, her HTN meds were restored without complications and she was normotensive, and she was evaluated by PT that recommended STR. She is now being discharged to [facility] for STR. DISCHARGE MEDICATIONS: Please see below. ALLERGIES: Please see below. PHYSICAL EXAMINATION ON DISCHARGE: VITAL SIGNS: Please see below. GEN: NAD HEENT: NCAT CVS: RRR, no m/r/g LUNGS: CTAB ABDOMEN: obese, soft, normoactive sounds, NTND EXTREMITIES: no LE edema, WWP NEURO: Grossly nonfocal examination with CN2-12 grossly intact and moving all extremities. PSYCH: AOx3 LABORATORY DATA: Please see below. IMAGING: Chest x-ray "IMPRESSION: No acute pulmonary disease. Cardiomegaly." CT of the head: Impression: Subacute to chronic appearing posterior left temporal region / MCA infarction. Punctate foci of hyper attenuation within the left basal ganglia and right cerebellum. Small acute hemorrhages are not excluded. Chronic appearing left thalamic infarction. Age related volume loss and sequelae of chronic microangiop athic ischemic disease." PROGNOSIS: Good ACTIVITY: As tolerated DIET: Regular DISCHARGE PLAN: [facility] for STR DISPOSITION: [facility] DISCHARGE INSTRUCTIONS: 1. PCP follow up upon discharge from [facility] ITEMS TO FOLLOWUP ON ON OUTPATIENT: 1. Hypertension 2. Deconditioning DISCHARGE CONDITION: Stable TIME SPENT ON DISCHARGE: 34 minutes. Vital Signs/I&Os Vital Signs Date Time Temp Pulse Resp B/P (MAP) Pulse Ox O2 Delivery O2 Flow Rate FiO2 11/10/19 11:49 97.1 80 18 144/78 (100) 94 Room Air I&O- Last 24 Hours up to 6 AM 11/10/19 06:00 Intake Total 240 ml Output Total 500 ml Balance -260 ml Laboratory Data Labs 24H Laboratory Tests 2 11/09/19 15:11: Immature Granulocyte % (Auto) 0.2, Neutrophils (%) (Auto) 51.4, Lymphocytes (%) (Auto) 38.6, Monocytes (%) (Auto) 7.7H, Eosinophils (%) (Auto) 1.8, Basophils (%) (Auto) 0.3, Neutrophils # (Auto) 4.4, Lymphocytes # (Auto) 3.3, Monocytes # (Auto) 0.7, Eosinophils # (Auto) 0.2, Basophils # (Auto) 0.0, Nucleated Red Blood Cells % (auto) 0.0 11/09/19 15:14: Prothrombin Time 13.3, Prothromb Time International Ratio 1.04 11/09/19 15:22: POC Glucose (Misc Panel) 115H, POC Sodium (Misc Panel) 138, POC Potassium (Misc Panel) 4.2, POC Chloride (Misc Panel) 98, POC Total CO2 (Misc Panel) 27.0, POC Blood Urea Nitrogen (Misc Panel 16, POC Ionized Calcium (Misc Panel) 4.7, POC Creatinine (Misc Panel) 0.5L, POC Hematocrit (Misc Panel) 36.0L, Iron Level 65, Total Iron Binding Capacity 342, Transferrin % Saturation 19.0, Ferritin 32, Total Creatine Kinase 73, Creatine Kinase MB 2.7, Creatine Kinase MB Relative Index 3.70, Troponin I < 0.02, Thyroid Stimulating Hormone (TSH) 1.820 11/09/19 15:35: Urine Color YELLOW, Urine Appearance CLEAR, Urine pH 7.0, Urine Specific [place] 1.009, Urine Protein NEGATIVE, Urine Glucose (UA) NEGATIVE, Urine Ketones NEGATIVE, Urine Blood NEGATIVE, Urine Nitrite NEGATIVE, Urine Bilirubin NEGATIVE, Urine Urobilinogen 0.2, Urine Leukocyte Esterase 1+H, Urine WBC (Auto) 13H, Urine RBC (Auto) 3, Urine Hyaline Casts (Auto) 0, Urine Bacteria (Auto) NEGATIVE, Urine Squamous Epithelial Cells 0, Urine Amorphous Sediment SMALLH, Urine Sperm (Auto) 11/10/19 04:53: Nucleated Red Blood Cells % (auto) 0.0, Anion Gap 8, Glomerular Filtration Rate > 60.0, Calcium Level 8.1L 11/10/19 11:01: Coronavirus (COVID-19)(PCR) NEGATIVE CBC/BMP Laboratory Tests 11/09/19 15:11 11/10/19 04:53 Microbiology Microbiology 11/09/19 Urine Culture - Final, Complete Discharge Medications Scheduled Acetaminophen (Acetaminophen ER) 650 Mg Tablet.er, 650 MG PO BID, (Reported) Acetaminophen (Acetaminophen ER) 650 Mg Tablet.er, 1,300 MG PO Q8H Amlodipine Besylate (Amlodipine Besylate) 5 Mg Tablet, 5 MG PO DAILY Aspirin (Aspirin EC) 81 Mg Tablet.dr, 81 MG PO DAILY, (Reported) Brimonidine Tartrate (Brimonidine Tartrate) 0.2% 5ML Drops, 1 DROP OU BID, (Reported) Calcium Carbonate/Vitamin D3 (Calcium 600-Vit D3 800 Tablet) 1 Each Tablet, 1 TAB PO DAILY, (Reported) Carboxymethylcellulose Sodium (Refresh Plus) 1 Each Droperette, 1 DROP OU TID, (Reported) SELF ADMINISTERS AT SSV Celecoxib (Celebrex) 100 Mg Capsule, 100 MG PO DAILY, (Reported) TAKES AT NOON Cholecalciferol (Vitamin D3) (Vitamin D3) 1,000 Unit Tablet, 1,000 UNITS PO QAM, (Reported) Cranberry (Cranberry) 400 Mg Capsule, 400 MG PO BID, (Reported) Cyanocobalamin (Vitamin B-12) (Vitamin B-12) 1,000 Mcg Tablet, 1,000 MCG PO DAILY, (Reported) Diclofenac Epolamine (Diclofenac Epolamine) 1 Each Patch.td12, 1 PATCH TOP Q12H Docusate Sodium (Colace) 100 Mg Capsule, 100 MG PO BID, (Reported) Donepezil HCl (Aricept) 5 Mg Tablet, 5 MG PO QHS, (Reported) Duloxetine Hcl (Cymbalta) 30 Mg Capsule.dr, 30 MG PO QHS, (Reported) Gabapentin (Gabapentin) 100 Mg Capsule, 100 MG PO BID, (Reported) TAKES AT 0600 & 1200 Inulin (Fiber Gummies) 2 Gm Tab.chew, 1 CHW PO BID, (Reported) Latanoprost (Xalatan) 0.005% 2.5ML Drops, 1 DROP OU QHS, (Reported) Levothyroxine Sodium (Levoxyl) 50 Mcg Tablet, 50 MCG PO QAM, (Reported) Losartan Potassium (Losartan Potassium) 50 Mg Tablet, 50 MG PO DAILY, (Reported) Memantine HCl (Memantine HCl) 5 Mg Tablet, 5 MG PO BID, (Reported) Nitrofurantoin Macrocrystal (Macrodantin) 50 Mg Capsule, 50 MG PO DAILY, (Reported) Polyethylene Glycol 3350 (Miralax) 119 Gm Powder, 17 GM PO 2XW, (Reported) TAKES MON & FRI Rosuvastatin Calcium (Crestor) 10 Mg Tablet, 10 MG PO QAM, (Reported) Timolol Maleate (Timolol Maleate) 0.5% 5ML Drops, 1 DROP OU BID, (Reported) Vit A/Vit C/Vit E/Zinc/Copper (Preservision Areds Tablet) 1 Each Tablet, 1 TAB PO BID, (Reported) Scheduled PRN Acetaminophen (Acetaminophen 8 Hour) 650 Mg Tablet.er, 650 MG PO BID PRN for PAIN, (Reported) Polyethylene Glycol 3350 (Miralax) 119 Gm Powder, 17 GM PO DAILY PRN for CONSTIPATION, (Reported) Allergies Coded Allergies: codeine (Verified Allergy, Unknown, 05/19/19) dexamethasone (Verified Allergy, Unknown, 05/19/19) WILY ROBERTS MD Nov 10, 2019 13:01
[2019-11-11 06:45] VITALS: BP 150/62
[2019-11-12] MEDS ORDERED: MIRALAX *UNIT DOSE* 17GM PACKET PO SCH (09:00)
== END 2019-11-11 08:00 | DRG 305 ==
LOC: EDBD 15:01 → M ED 15:01 → EDSEX 15:01 → M ED INP 18:28 → ENRESERV 18:49 → M PCU 20:03
PROVIDERS: ADMIT Internal Medicine; ATTEND Internal Medicine
DX: I16.0 Hypertensive urgency (principal); K21.9 Gastro-esophageal reflux disease without esophagitis; E03.9 Hypothyroidism, unspecified; F03.90 Unspecified dementia, unspecified severity, without behavioral disturbance, psychotic disturbance, mood disturbance, and anxiety; E78.5 Hyperlipidemia, unspecified; M81.0 Age-related osteoporosis without current pathological fracture; M19.90 Unspecified osteoarthritis, unspecified site; M54.5 Low back pain; Z86.73 Personal history of transient ischemic attack (TIA), and cerebral infarction without residual deficits; H35.30 Unspecified macular degeneration; N31.9 Neuromuscular dysfunction of bladder, unspecified; Z79.899 Other long term (current) drug therapy; Z79.82 Long term (current) use of aspirin; Z88.5 Allergy status to narcotic agent; Z88.8 Allergy status to other drugs, medicaments and biological substances

== ENCOUNTER → 2019-11-15 | Outpatient (REF) ==
[~2019-11-15] MED LIST: ACE65ERTAB PO; ACET1TAB37 PO; AMLO5TAB6 PO; ARIC1TAB PO; ASPI-161 PO; BRIM0.2S13 OU; CALC1TAB27 PO; CELE100C PO; COLA100C5 PO; CRAN400C PO; CRES10TA PO; CVS1CHW13 PO; CYMB1CAP5 PO; DICL1PAT6 TOP; GABA-1171 PO; LEVO50TA45 PO; LOSA50TA88 PO; MACR50CA10 PO; MEMA1TAB3 PO; MIRA3350 PO; OCUVTAB4 PO; QC A650T3 PO; REFR0.1D OU; TIMO0.5S29 OU; VITA100018 PO; VITAD1000T PO; XALA0.007 OU
[2019-11-15 13:55] LABS: HEMATOCRIT 38.6 % (36.0-47.0); HEMOGLOBIN 12.2 g/dl (12.0-15.5); MEAN CORPUSCULAR HGB CONC 31.6 g/dl (32.0-36.5); MEAN CORPUSCULAR VOLUME 98.2 fl (80.0-96.0); PLATELET COUNT, AUTOMATED 302 10^3/uL (150-450); RED BLOOD COUNT 3.93 10^6/uL (4.00-5.40); WHITE BLOOD COUNT 8.3 10^3/uL (4.0-10.0)
[2019-11-15 14:05] LABS: BLOOD UREA NITROGEN 15 MG/DL (7-18); CALCIUM LEVEL 8.8 MG/DL (8.8-10.2); CARBON DIOXIDE LEVEL 28 MEQ/L (21-32); CHLORIDE LEVEL 106 MEQ/L (98-107); CREATININE FOR GFR 0.65 MG/DL (0.55-1.30); GLOMERULAR FILTRATION RATE > 60.0 (>32); GLUCOSE, FASTING 103 MG/DL (70-100); POTASSIUM SERUM 3.8 MEQ/L (3.5-5.1); SODIUM LEVEL 143 MEQ/L (136-145)
== END ==
PROVIDERS: ATTEND Family Medicine
DX: I63.9 Cerebral infarction, unspecified (principal)

== ENCOUNTER → 2019-11-22 | Outpatient (REF) ==
[2019-11-22 11:12] LABS: HEMATOCRIT 35.2 % (36.0-47.0); HEMOGLOBIN 11.5 g/dl (12.0-15.5); MEAN CORPUSCULAR HEMOGLOBIN 31.1 pg (27.0-33.0); MEAN CORPUSCULAR HGB CONC 32.7 g/dl (32.0-36.5); MEAN CORPUSCULAR VOLUME 95.1 fl (80.0-96.0); PLATELET COUNT, AUTOMATED 315 10^3/uL (150-450); WHITE BLOOD COUNT 7.6 10^3/uL (4.0-10.0)
[2019-11-22 11:36] LABS: BLOOD UREA NITROGEN 14 MG/DL (7-18); CALCIUM LEVEL 8.8 MG/DL (8.8-10.2); CARBON DIOXIDE LEVEL 29 MEQ/L (21-32); CHLORIDE LEVEL 104 MEQ/L (98-107); CREATININE FOR GFR 0.53 MG/DL (0.55-1.30); GLOMERULAR FILTRATION RATE > 60.0 (>32); GLUCOSE, FASTING 120 MG/DL (70-100); POTASSIUM SERUM 3.9 MEQ/L (3.5-5.1); SODIUM LEVEL 138 MEQ/L (136-145)
== END ==
PROVIDERS: ATTEND Family Medicine
DX: I63.9 Cerebral infarction, unspecified (principal)

== ENCOUNTER → 2020-03-27 | Outpatient (REF) | payer MEDICARE, OTHER, MEDICAID ==
[~2020-03-27] MED LIST changes: +AMLO1TAB24 PO; -AMLO5TAB6 PO; +D31000TA2 PO; -VITAD1000T PO
[2020-03-27 10:18] LABS: BASO % 0.4 % (0.0-1.0); EOS # 0.2 10^3/uL (0.0-0.5); EOS % 2.6 % (0.0-3.0); HEMATOCRIT 37.9 % (36.0-47.0); HEMOGLOBIN 12.3 g/dl (12.0-15.5); LYMPH # 3.4 10^3/uL (1.5-5.0); LYMPH % 38.2 % (24.0-44.0); MEAN CORPUSCULAR HEMOGLOBIN 30.4 pg (27.0-33.0); MEAN CORPUSCULAR HGB CONC 32.5 g/dl (32.0-36.5); MEAN CORPUSCULAR VOLUME 93.8 fl (80.0-96.0); MONO # 0.7 10^3/uL (0.0-0.8); MONO % 7.8 % (0.0-5.0); NEUTROPHILS # 4.6 10^3/uL (1.5-8.5); NEUTROPHILS % 50.7 % (36.0-66.0); PLATELET COUNT, AUTOMATED 260 10^3/uL (150-450); RED BLOOD COUNT 4.04 10^6/uL (4.00-5.40)
[2020-03-27 10:45] LABS: ALBUMIN 3.6 GM/DL (3.2-5.2); ALT/SGPT 19 U/L (12-78); BILIRUBIN,TOTAL 0.2 MG/DL (0.2-1.0); BLOOD UREA NITROGEN 13 MG/DL (7-18); CALCIUM LEVEL 8.9 MG/DL (8.8-10.2); CARBON DIOXIDE LEVEL 29 MEQ/L (21-32); CHLORIDE LEVEL 107 MEQ/L (98-107); CHOLESTEROL LEVEL 150 MG/DL (<200); CHOLESTEROL RISK RATIO 2.307 (<5); FREE T4 1.04 NG/DL (0.76-1.46); GLOMERULAR FILTRATION RATE > 60.0 (>32); GLUCOSE, FASTING 88 MG/DL (70-100); HDL CHOLESTEROL 65 MG/DL (>40); LDL CHOLESTEROL 61 MG/DL (<100); NON-HDL-C 85 MG/DL; POTASSIUM SERUM 4.3 MEQ/L (3.5-5.1); SODIUM LEVEL 141 MEQ/L (136-145); TOTAL PROTEIN 6.6 GM/DL (6.4-8.2); TRIGLYCERIDES LEVEL 118 MG/DL (<150)
[2020-03-27 10:50] LABS: HEMOGLOBIN A1c 5.6 %
[2020-03-27 11:36] LABS: TOTAL 25(OH) VITAMIN D 39.8 NG/ML (30.0-100.0); VITAMIN B12 LEVEL 981 PG/ML (247-911)
[2020-03-27 12:24] LABS: PTH INTACT 67.5 PG/ML (18.5-88.0)
== END ==
PROVIDERS: ATTEND Physician Assistant Medical
DX: E03.9 Hypothyroidism, unspecified (principal); E78.5 Hyperlipidemia, unspecified; I10 Essential (primary) hypertension; R73.09 Other abnormal glucose; R41.3 Other amnesia; E55.9 Vitamin D deficiency, unspecified

== ENCOUNTER → 2020-04-05 | Outpatient (REF) | payer MEDICARE, OTHER, MEDICAID ==
[2020-04-05 17:44] LABS: APPEARANCE, URINE CLEAR (CLEAR); BACTERIA, URINE AUTO NEGATIVE (NEGATIVE); BILIRUBIN, URINE AUTO NEGATIVE (NEGATIVE); BLOOD, URINE BLOOD NEGATIVE (NEGATIVE); COLOR, URINE YELLOW (YELLOW); GLUCOSE, URINE (UA) AUTO NEGATIVE (NEGATIVE); KETONE, URINE AUTO NEGATIVE (NEGATIVE); LEUKOCYTE ESTERASE, URINE AUTO 2+ (NEGATIVE); NITRITE, URINE AUTO NEGATIVE (NEGATIVE); PROTEIN, URINE AUTO NEGATIVE (NEGATIVE); RBC, URINE AUTO 0 /HPF (0-3); SQUAMOUS EPITHELIAL CELL UR AU 0 /HPF (0-6); UROBILINOGEN, URINE AUTO 0.2 mg/dL (0.0-2.0); WBC, URINE AUTO 11 /HPF (0-3)
== END ==
PROVIDERS: ATTEND Nurse Practitioner Family
DX: N39.0 Urinary tract infection, site not specified (principal)

== ENCOUNTER → 2020-05-12 | Outpatient (REF) | payer MEDICARE, OTHER, MEDICAID | PROVIDERS: ATTEND Internal Medicine | DX: Z20.828 Contact with and (suspected) exposure to other viral communicable diseases (principal) ==

== ENCOUNTER → 2020-05-17 | Outpatient (REF) | payer MEDICARE, OTHER, MEDICAID | PROVIDERS: ATTEND Internal Medicine | DX: Z11.59 Encounter for screening for other viral diseases (principal) ==

== ENCOUNTER → 2020-05-22 | Outpatient (REF) | payer MEDICARE, OTHER, MEDICAID | PROVIDERS: ATTEND Internal Medicine | DX: Z20.828 Contact with and (suspected) exposure to other viral communicable diseases (principal) ==

== ENCOUNTER → 2020-05-29 | Outpatient (REF) | payer MEDICARE, OTHER, MEDICAID | PROVIDERS: ATTEND Internal Medicine | DX: Z20.828 Contact with and (suspected) exposure to other viral communicable diseases (principal) ==

== ENCOUNTER → 2020-06-05 | Outpatient (REF) | payer MEDICARE, OTHER, MEDICAID | PROVIDERS: ATTEND Internal Medicine | DX: Z11.52 Encounter for screening for COVID-19 (principal) ==

== ENCOUNTER → 2020-06-12 | Outpatient (REF) | payer MEDICARE, OTHER, MEDICAID | PROVIDERS: ATTEND Internal Medicine | DX: Z11.52 Encounter for screening for COVID-19 (principal) ==

== ENCOUNTER → 2020-06-19 | Outpatient (REF) | payer MEDICARE, OTHER, MEDICAID | PROVIDERS: ATTEND Internal Medicine | DX: Z11.52 Encounter for screening for COVID-19 (principal) ==

== ENCOUNTER → 2020-06-26 | Outpatient (REF) | payer MEDICARE, OTHER, MEDICAID | PROVIDERS: ATTEND Internal Medicine | DX: Z20.822 Contact with and (suspected) exposure to COVID-19 (principal) ==

== ENCOUNTER → 2020-07-03 | Outpatient (REF) | payer MEDICARE, OTHER, MEDICAID | PROVIDERS: ATTEND Internal Medicine | DX: Z20.822 Contact with and (suspected) exposure to COVID-19 (principal) ==

== ENCOUNTER → 2020-07-10 | Outpatient (REF) | payer MEDICARE, OTHER, MEDICAID | PROVIDERS: ATTEND Internal Medicine | DX: Z20.822 Contact with and (suspected) exposure to COVID-19 (principal) ==

== ENCOUNTER → 2020-07-17 | Outpatient (REF) | payer MEDICARE, OTHER, MEDICAID | PROVIDERS: ATTEND Internal Medicine | DX: Z20.822 Contact with and (suspected) exposure to COVID-19 (principal) ==

== ENCOUNTER → 2020-09-30 | Outpatient (REF) | payer MEDICARE, OTHER, MEDICAID ==
[2020-09-30 16:06] LABS: APPEARANCE, URINE CLEAR (CLEAR); BACTERIA, URINE AUTO 2+ (NEGATIVE); BILIRUBIN, URINE AUTO NEGATIVE (NEGATIVE); BLOOD, URINE BLOOD NEGATIVE (NEGATIVE); COLOR, URINE YELLOW (YELLOW); GLUCOSE, URINE (UA) AUTO NEGATIVE (NEGATIVE); KETONE, URINE AUTO NEGATIVE (NEGATIVE); LEUKOCYTE ESTERASE, URINE AUTO TRACE (NEGATIVE); NITRITE, URINE AUTO NEGATIVE (NEGATIVE); PROTEIN, URINE AUTO NEGATIVE (NEGATIVE); RBC, URINE AUTO 2 /HPF (0-3); SPECIFIC GRAVITY URINE AUTO 1.009 (1.002-1.035); SQUAMOUS EPITHELIAL CELL UR AU 0 /HPF (0-6); WBC, URINE AUTO 6 /HPF (0-3)
== END ==
LOC: M LAB REF 15:54
PROVIDERS: ATTEND Nurse Practitioner Family
DX: N39.0 Urinary tract infection, site not specified (principal)

== ENCOUNTER → 2020-11-03 | Outpatient (REF) | payer MEDICARE, OTHER, MEDICAID ==
[2020-11-03 10:28] LABS: BLOOD UREA NITROGEN 12 MG/DL (7-18); CREATININE FOR GFR 0.44 MG/DL (0.55-1.30); GLOMERULAR FILTRATION RATE > 60.0 (>32)
== END ==
PROVIDERS: ATTEND Psychiatry & Neurology Neurology
DX: I10 Essential (primary) hypertension (principal)

== ENCOUNTER → 2020-11-14 | Outpatient (REF) | payer MEDICARE, OTHER, MEDICAID ==
[2020-11-14 11:50] LABS: BLOOD UREA NITROGEN 11 MG/DL (7-18); CREATININE FOR GFR 0.43 MG/DL (0.55-1.30); GLOMERULAR FILTRATION RATE > 60.0 (>32)
== END ==
PROVIDERS: ATTEND Psychiatry & Neurology Neurology
DX: I10 Essential (primary) hypertension (principal)

== ENCOUNTER → 2020-12-01 | Outpatient (REF) | payer MEDICARE, OTHER, MEDICAID ==
[2020-12-01 15:37] LABS: APPEARANCE, URINE HAZY (CLEAR); BACTERIA, URINE AUTO NEGATIVE (NEGATIVE); BILIRUBIN, URINE AUTO 1+ (NEGATIVE); BLOOD, URINE BLOOD NEGATIVE (NEGATIVE); CALCIUM OXALATE CRYSTALS SMALL; COLOR, URINE AMBER (YELLOW); GLUCOSE, URINE (UA) AUTO NEGATIVE (NEGATIVE); KETONE, URINE AUTO TRACE mg/dL (NEGATIVE); LEUKOCYTE ESTERASE, URINE AUTO 3+ (NEGATIVE); MUCUS, URINE LARGE (NEGATIVE); NITRITE, URINE AUTO NEGATIVE (NEGATIVE); PROTEIN, URINE AUTO 1+ mg/dL (NEGATIVE); RBC, URINE AUTO 4 /HPF (0-3); SPECIFIC GRAVITY URINE AUTO 1.026 (1.002-1.035); SQUAMOUS EPITHELIAL CELL UR AU 1 /HPF (0-6); WBC, URINE AUTO 35 /HPF (0-3)
== END ==
PROVIDERS: ATTEND Nurse Practitioner Family
DX: N39.0 Urinary tract infection, site not specified (principal)

== ENCOUNTER → 2020-12-11 | Outpatient (REF) | payer MEDICARE, OTHER, MEDICAID ==
[2020-12-11 11:16] LABS: HEMOGLOBIN A1c 5.5 %
[2020-12-11 11:19] LABS: ALBUMIN 3.5 GM/DL (3.2-5.2); ALT/SGPT 23 U/L (12-78); BILIRUBIN,TOTAL 0.3 MG/DL (0.2-1.0); BLOOD UREA NITROGEN 10 MG/DL (7-18); CARBON DIOXIDE LEVEL 27 MEQ/L (21-32); CHLORIDE LEVEL 104 MEQ/L (98-107); CHOLESTEROL LEVEL 164 MG/DL (<200); CHOLESTEROL RISK RATIO 1.822 (<5); CREATININE FOR GFR 0.48 MG/DL (0.55-1.30); FREE T4 1.15 NG/DL (0.76-1.46); GLOMERULAR FILTRATION RATE > 60.0 (>32); GLUCOSE, FASTING 120 MG/DL (70-100); HDL CHOLESTEROL 90 MG/DL (>40); LDL CHOLESTEROL 59 MG/DL (<100); MAGNESIUM LEVEL 2.1 MG/DL (1.8-2.4); NON-HDL-C 74 MG/DL; POTASSIUM SERUM 3.9 MEQ/L (3.5-5.1); SODIUM LEVEL 139 MEQ/L (136-145); TOTAL PROTEIN 6.5 GM/DL (6.4-8.2); TRIGLYCERIDES LEVEL 75 MG/DL (<150)
[2020-12-11 11:21] LABS: TOTAL 25(OH) VITAMIN D 44.5 NG/ML (30.0-100.0)
== END ==
PROVIDERS: ATTEND Nurse Practitioner Family
DX: I10 Essential (primary) hypertension (principal); E78.5 Hyperlipidemia, unspecified; E03.9 Hypothyroidism, unspecified; R73.09 Other abnormal glucose; E55.9 Vitamin D deficiency, unspecified; Z79.899 Other long term (current) drug therapy

== ENCOUNTER → 2020-12-27 | Outpatient (CLI) | payer MEDICARE, OTHER, MEDICAID ==
--- NOTE | 2020-12-27 16:31 | REP ---
INDICATION: LEFT ANKLE SWELLING. COMPARISON: None TECHNIQUE: Four views FINDINGS: No acute fracture or destructive osseous lesion. The mortise is intact. The bones are markedly demineralized. Degenerative changes are present. There is a plantar calcaneal heel spur. IMPRESSION: Chronic changes as described above. <Electronically signed by Jose Martin > 12/27/20 [id number]
[2020-12-27 17:14] LABS: BASO % 0.3 % (0.0-1.0); EOS # 0.2 10^3/uL (0.0-0.5); EOS % 1.9 % (0.0-3.0); HEMATOCRIT 38.1 % (36.0-47.0); HEMOGLOBIN 12.5 g/dl (12.0-15.5); LYMPH # 4.3 10^3/uL (1.5-5.0); LYMPH % 47.6 % (24.0-44.0); MEAN CORPUSCULAR HEMOGLOBIN 31.3 pg (27.0-33.0); MEAN CORPUSCULAR HGB CONC 32.8 g/dl (32.0-36.5); MEAN CORPUSCULAR VOLUME 95.5 fl (80.0-96.0); MONO # 0.8 10^3/uL (0.0-0.8); MONO % 8.6 % (2.0-8.0); NEUTROPHILS # 3.7 10^3/uL (1.5-8.5); NEUTROPHILS % 41.3 % (36.0-66.0); PLATELET COUNT, AUTOMATED 307 10^3/uL (150-450); RED BLOOD COUNT 3.99 10^6/uL (4.00-5.40); WHITE BLOOD COUNT 9.1 10^3/uL (4.0-10.0)
== END ==
LOC: M PLALAB 15:38
PROVIDERS: ATTEND Nurse Practitioner Family
DX: M77.32 Calcaneal spur, left foot (principal); M25.472 Effusion, left ankle

== ENCOUNTER 2021-01-09 14:39 | Inpatient (IN) | payer MEDICARE, OTHER, MEDICAID ==
[~2021-01-09] VITALS: Ht 154.9 cm; Wt 90.2 kg
[~2021-01-09 14:39] MED LIST changes: +LOSA50TA28 PO; -LOSA50TA88 PO
[2021-01-09] MEDS ORDERED: AMLO1TAB24 PO (15:19)
[2021-01-09] MEDS ORDERED: ASPI81CH48 PO (15:19)
[2021-01-09] MEDS ORDERED: MEMA10TA19 PO (15:19)
[2021-01-09] MEDS ORDERED: CRAN450T4 PO (15:19)
[2021-01-09] MEDS ORDERED: DONE10TA90 PO (15:19)
[2021-01-09] MEDS ORDERED: ACET-683 PO (15:19)
[2021-01-09] MEDS ORDERED: LIDO5DIS41 TOP (15:26)
[2021-01-09] MEDS ORDERED: VITMTA PO (15:26)
[2021-01-09] MEDS ORDERED: MILKSUS3 PO (15:26)
[2021-01-09] MEDS ORDERED: NYST1POW9 TOP (15:26)
[2021-01-09] MEDS ORDERED: HALO0.5H PO ×2 (15:26)
[2021-01-09] MEDS ORDERED: HOME MED LIST COMPLETE! XX SCH (16:00)
[2021-01-09 17:59] LABS: BASO % 0.4 % (0.0-1.0); EOS # 0.3 10^3/uL (0.0-0.5); EOS % 2.4 % (0.0-3.0); HEMOGLOBIN 12.3 g/dl (12.0-15.5); LYMPH # 3.9 10^3/uL (1.5-5.0); LYMPH % 36.4 % (24.0-44.0); MEAN CORPUSCULAR HEMOGLOBIN 31.7 pg (27.0-33.0); MEAN CORPUSCULAR HGB CONC 33.2 g/dl (32.0-36.5); MEAN CORPUSCULAR VOLUME 95.4 fl (80.0-96.0); MONO # 0.9 10^3/uL (0.0-0.8); MONO % 8.1 % (2.0-8.0); NEUTROPHILS # 5.5 10^3/uL (1.5-8.5); NEUTROPHILS % 52.4 % (36.0-66.0); PLATELET COUNT, AUTOMATED 303 10^3/uL (150-450); RED BLOOD COUNT 3.88 10^6/uL (4.00-5.40); WHITE BLOOD COUNT 10.6 10^3/uL (4.0-10.0)
[2021-01-09 18:12] LABS: OSMOLALITY SERUM 290 MOSM/KG (280-301)
[2021-01-09 18:22] LABS: ALBUMIN 3.2 GM/DL (3.2-5.2); ALT/SGPT 35 U/L (12-78); BILIRUBIN,DIRECT 0.1 MG/DL (0.0-0.2); BILIRUBIN,TOTAL 0.3 MG/DL (0.2-1.0); BLOOD UREA NITROGEN 16 MG/DL (7-18); CALCIUM LEVEL 8.4 MG/DL (8.8-10.2); CARBON DIOXIDE LEVEL 28 MEQ/L (21-32); CHLORIDE LEVEL 108 MEQ/L (98-107); CK-MB VALUE MASS 12.8 NG/ML (<3.6); CPK CREATINE PHOSPHOKINASE 666 U/L (26-192); CREATININE FOR GFR 0.46 MG/DL (0.55-1.30); GLOMERULAR FILTRATION RATE > 60.0 (>32); GLUCOSE, FASTING 95 MG/DL (70-100); MB/CK RELATIVE INDEX 1.92 (< OR =4); POTASSIUM SERUM 3.4 MEQ/L (3.5-5.1); SODIUM LEVEL 142 MEQ/L (136-145); TROPONIN I 0.02 NG/ML (< 0.10)
[2021-01-09] MEDS ORDERED: cefTRIAXone SOD 1 GM in D5W MINI-BAG PLUS 50 ML IV ONE (18:45)
[2021-01-09] MEDS ORDERED: MAALOX 30 ML SUSP *UDC PO PRN (19:45)
[2021-01-09] MEDS ORDERED: POTASSIUM CHLORIDE 10MEQ SR TABLET PO ONE (20:00)
[2021-01-09 20:20] LABS: RSV AMPLIFICATION NEGATIVE (NEGATIVE)
[2021-01-09] MEDS: LATANOPROST 0.005% OPHTH SOLN 2.5 ML OU SCH (21:00)
[2021-01-09] MEDS: BRIMONIDINE 0.15% OPHTH SOLN 5 ML OU SCH (21:00)
[2021-01-09] MEDS: **NOTE PATIENT COMMENT** MISC XX SCH (21:00)
[2021-01-09] MEDS: TIMOLOL MALEATE 0.5% OPHTH SOLN 5 ML OU SCH (21:00)
[2021-01-09] MEDS: NS 1,000 ML IV SCH (22:35)
[2021-01-09 23:00] VITALS: BP 121/73
[2021-01-09] MEDS ORDERED: LIDOCAINE 5% (LIDODERM) PATCH TOP PRN (23:00)
[2021-01-10] MEDS: ROSUVASTATIN 10 MG TAB (CRESTOR) PO SCH ×2 (00:25→22:30)
[2021-01-10] MEDS: MEMANTINE 5MG TABLET (NAMENDA) PO SCH ×3 (00:25→22:30)
[2021-01-10] MEDS: OCUVITE 1 TAB PO SCH ×3 (00:25→22:30)
[2021-01-10] MEDS: DULoxetine 30MG CAPSULE (CYMBALTA) PO SCH ×2 (00:25→22:30)
[2021-01-10] MEDS: haloperidoL 0.5 MG TAB PO SCH ×2 (01:45→22:30)
[2021-01-10] MEDS: LEVOTHYROXINE 50MCG TABLET (0.05MG) PO SCH (05:44)
[2021-01-10] MEDS: NS 1,000 ML IV SCH ×2 (05:45→07:45)
[2021-01-10 06:00] VITALS: BP 128/74
[2021-01-10 06:17] LABS: HEMATOCRIT 35.3 % (36.0-47.0); HEMOGLOBIN 11.6 g/dl (12.0-15.5); MEAN CORPUSCULAR HEMOGLOBIN 31.5 pg (27.0-33.0); MEAN CORPUSCULAR HGB CONC 32.9 g/dl (32.0-36.5); MEAN CORPUSCULAR VOLUME 95.9 fl (80.0-96.0); PLATELET COUNT, AUTOMATED 304 10^3/uL (150-450); RED BLOOD COUNT 3.68 10^6/uL (4.00-5.40); WHITE BLOOD COUNT 10.6 10^3/uL (4.0-10.0)
[2021-01-10 06:57] LABS: BLOOD UREA NITROGEN 13 MG/DL (7-18); CALCIUM LEVEL 8.1 MG/DL (8.8-10.2); CARBON DIOXIDE LEVEL 25 MEQ/L (21-32); CHLORIDE LEVEL 108 MEQ/L (98-107); CPK CREATINE PHOSPHOKINASE 424 U/L (26-192); CREATININE FOR GFR 0.34 MG/DL (0.55-1.30); GLOMERULAR FILTRATION RATE > 60.0 (>32); GLUCOSE, FASTING 82 MG/DL (70-100); POTASSIUM SERUM 3.5 MEQ/L (3.5-5.1); SODIUM LEVEL 141 MEQ/L (136-145)
[2021-01-10] MEDS ORDERED: amLODIPine 5 MG TAB PO SCH (09:00)
[2021-01-10] MEDS ORDERED: LOSARTAN 50MG TABLET PO SCH (09:00)
[2021-01-10] MEDS: CYANOCOBALAMIN 500 MCG TAB PO SCH (09:36)
[2021-01-10] MEDS: ASPIRIN 81 MG CHEW TABLET PO SCH (09:37)
[2021-01-10] MEDS: CALCIUM/VITAMIN D 500 MG TAB PO SCH (09:37)
[2021-01-10] MEDS: ENOXAPARIN 40MG/0.4ML SYRINGE (J1650 PER 10MG) SC SCH (09:37)
[2021-01-10] MEDS: DOCUSATE SODIUM 100MG CAPSULE PO SCH (09:37)
[2021-01-10] MEDS: VITAMIN D 1,000 INTERNATIONAL UNITS TABLET PO SCH (09:39)
[2021-01-10] MEDS: DONEPEZIL 5 MG TAB PO SCH (09:39)
[2021-01-10] MEDS: BRIMONIDINE 0.15% OPHTH SOLN 5 ML OU SCH ×3 (09:40→22:30)
[2021-01-10] MEDS: TIMOLOL MALEATE 0.5% OPHTH SOLN 5 ML OU SCH ×2 (09:41→22:31)
[2021-01-10] MEDS ORDERED: cefTRIAXone SOD 1 GM in D5W MINI-BAG PLUS 50 ML IV SCH (12:00)
[2021-01-10 14:00] VITALS: BP 146/72
[2021-01-10] MEDS: **NOTE PATIENT COMMENT** MISC XX SCH (21:00)
[2021-01-10 22:00] VITALS: BP 135/66
[2021-01-10] MEDS: LATANOPROST 0.005% OPHTH SOLN 2.5 ML OU SCH (22:31)
[2021-01-11] MEDS: LEVOTHYROXINE 50MCG TABLET (0.05MG) PO SCH (05:20)
[2021-01-11 05:50] VITALS: BP 133/63
[2021-01-11 08:34] LABS: CPK CREATINE PHOSPHOKINASE 181 U/L (26-192)
[2021-01-11] MEDS: ENOXAPARIN 40MG/0.4ML SYRINGE (J1650 PER 10MG) SC SCH (08:54)
[2021-01-11] MEDS: CYANOCOBALAMIN 500 MCG TAB PO SCH (08:55)
[2021-01-11] MEDS: MEMANTINE 5MG TABLET (NAMENDA) PO SCH ×2 (08:56→20:45)
[2021-01-11] MEDS: OCUVITE 1 TAB PO SCH ×2 (08:56→20:45)
[2021-01-11] MEDS: ASPIRIN 81 MG CHEW TABLET PO SCH (08:56)
[2021-01-11] MEDS: VITAMIN D 1,000 INTERNATIONAL UNITS TABLET PO SCH (08:56)
[2021-01-11] MEDS: CALCIUM/VITAMIN D 500 MG TAB PO SCH (08:56)
[2021-01-11] MEDS: DONEPEZIL 5 MG TAB PO SCH (08:57)
[2021-01-11] MEDS: DOCUSATE SODIUM 100MG CAPSULE PO SCH (08:57)
[2021-01-11] MEDS: NYSTATIN 100,000 UNITS/GM TOPICAL PWD 15 GM TOP PRN ×2 (08:58→20:46)
[2021-01-11] MEDS: BRIMONIDINE 0.15% OPHTH SOLN 5 ML OU SCH ×3 (08:58→20:46)
[2021-01-11] MEDS: TIMOLOL MALEATE 0.5% OPHTH SOLN 5 ML OU SCH ×2 (08:58→20:46)
[2021-01-11] MEDS: cefTRIAXone SOD 1 GM in D5W MINI-BAG PLUS 50 ML IV SCH (08:59)
[2021-01-11 10:36] LABS: BLOOD UREA NITROGEN 13 MG/DL (7-18); CALCIUM LEVEL 7.9 MG/DL (8.8-10.2); CARBON DIOXIDE LEVEL 26 MEQ/L (21-32); CHLORIDE LEVEL 109 MEQ/L (98-107); CREATININE FOR GFR 0.27 MG/DL (0.55-1.30); GLOMERULAR FILTRATION RATE > 60.0 (>32); GLUCOSE, FASTING 79 MG/DL (70-100); POTASSIUM SERUM 3.5 MEQ/L (3.5-5.1); SODIUM LEVEL 142 MEQ/L (136-145)
[2021-01-11 14:00] VITALS: BP 133/55
[2021-01-11] MEDS: DULoxetine 30MG CAPSULE (CYMBALTA) PO SCH (20:45)
[2021-01-11] MEDS: ROSUVASTATIN 10 MG TAB (CRESTOR) PO SCH (20:45)
[2021-01-11] MEDS: ACETAMINOPHEN TAB 650MG DOSE (2X325MG) PO PRN (20:46)
[2021-01-11] MEDS: haloperidoL 0.5 MG TAB PO SCH (20:46)
[2021-01-11] MEDS: LATANOPROST 0.005% OPHTH SOLN 2.5 ML OU SCH (20:46)
[2021-01-11] MEDS: **NOTE PATIENT COMMENT** MISC XX SCH (20:47)
[2021-01-11 22:00] VITALS: BP 144/70
[2021-01-12] MEDS: LEVOTHYROXINE 50MCG TABLET (0.05MG) PO SCH (06:05)
[2021-01-12 06:06] VITALS: BP 129/63
[2021-01-12 06:19] LABS: CPK CREATINE PHOSPHOKINASE 112 U/L (26-192)
[2021-01-12 08:01] LABS: HEMATOCRIT 33.1 % (36.0-47.0); HEMOGLOBIN 10.9 g/dl (12.0-15.5); MEAN CORPUSCULAR HEMOGLOBIN 31.5 pg (27.0-33.0); MEAN CORPUSCULAR HGB CONC 32.9 g/dl (32.0-36.5); MEAN CORPUSCULAR VOLUME 95.7 fl (80.0-96.0); PLATELET COUNT, AUTOMATED 304 10^3/uL (150-450); RED BLOOD COUNT 3.46 10^6/uL (4.00-5.40); WHITE BLOOD COUNT 9.6 10^3/uL (4.0-10.0)
[2021-01-12 08:09] LABS: BLOOD UREA NITROGEN 12 MG/DL (7-18); CALCIUM LEVEL 7.8 MG/DL (8.8-10.2); CARBON DIOXIDE LEVEL 27 MEQ/L (21-32); CHLORIDE LEVEL 109 MEQ/L (98-107); CREATININE FOR GFR 0.28 MG/DL (0.55-1.30); GLOMERULAR FILTRATION RATE > 60.0 (>32); GLUCOSE, FASTING 89 MG/DL (70-100); POTASSIUM SERUM 3.5 MEQ/L (3.5-5.1); SODIUM LEVEL 143 MEQ/L (136-145)
[2021-01-12] MEDS: ENOXAPARIN 40MG/0.4ML SYRINGE (J1650 PER 10MG) SC SCH (08:35)
[2021-01-12] MEDS: MIRALAX *UNIT DOSE* 17GM PACKET PO SCH (08:35)
[2021-01-12] MEDS: CYANOCOBALAMIN 500 MCG TAB PO SCH (08:36)
[2021-01-12] MEDS: DOCUSATE SODIUM 100MG CAPSULE PO SCH (08:36)
[2021-01-12] MEDS: cefTRIAXone SOD 1 GM in D5W MINI-BAG PLUS 50 ML IV SCH (08:36)
[2021-01-12] MEDS: CALCIUM/VITAMIN D 500 MG TAB PO SCH (08:36)
[2021-01-12] MEDS: OCUVITE 1 TAB PO SCH ×2 (08:36→21:32)
[2021-01-12] MEDS: MEMANTINE 5MG TABLET (NAMENDA) PO SCH ×2 (08:36→21:32)
[2021-01-12] MEDS: ASPIRIN 81 MG CHEW TABLET PO SCH (08:36)
[2021-01-12] MEDS: VITAMIN D 1,000 INTERNATIONAL UNITS TABLET PO SCH (08:36)
[2021-01-12] MEDS: DONEPEZIL 5 MG TAB PO SCH (08:36)
[2021-01-12] MEDS: TIMOLOL MALEATE 0.5% OPHTH SOLN 5 ML OU SCH ×2 (08:37→21:33)
[2021-01-12] MEDS: BRIMONIDINE 0.15% OPHTH SOLN 5 ML OU SCH ×3 (08:37→21:33)
[2021-01-12 08:48] LABS: ATYPICAL LYMPH 1 % (0-5); EOSINOPHILS 2 % (0-3); LYMPHOCYTES 48 % (16-44); MONOCYTES 3 % (0-5); NEUTROPHILS 46 % (28-66)
[2021-01-12 08:52] LABS: ANISOCYTOSIS 1+; PLATELET ESTIMATE NORMAL (NORMAL)
[2021-01-12 14:00] VITALS: BP 132/65
[2021-01-12] MEDS: **NOTE PATIENT COMMENT** MISC XX SCH (21:00)
[2021-01-12] MEDS: ROSUVASTATIN 10 MG TAB (CRESTOR) PO SCH (21:32)
[2021-01-12] MEDS: DULoxetine 30MG CAPSULE (CYMBALTA) PO SCH (21:32)
[2021-01-12] MEDS: haloperidoL 0.5 MG TAB PO SCH (21:32)
[2021-01-12] MEDS: ACETAMINOPHEN TAB 650MG DOSE (2X325MG) PO PRN (21:33)
[2021-01-12] MEDS: LATANOPROST 0.005% OPHTH SOLN 2.5 ML OU SCH (21:33)
[2021-01-12 22:00] VITALS: BP 140/87
[2021-01-13] MEDS: LEVOTHYROXINE 50MCG TABLET (0.05MG) PO SCH (05:06)
[2021-01-13 06:00] VITALS: BP 158/79
[2021-01-13] MEDS: ASPIRIN 81 MG CHEW TABLET PO SCH (09:00)
[2021-01-13] MEDS: CYANOCOBALAMIN 500 MCG TAB PO SCH (09:00)
[2021-01-13] MEDS: DOCUSATE SODIUM 100MG CAPSULE PO SCH (09:01)
[2021-01-13] MEDS: OCUVITE 1 TAB PO SCH ×2 (09:01→19:59)
[2021-01-13] MEDS: VITAMIN D 1,000 INTERNATIONAL UNITS TABLET PO SCH (09:01)
[2021-01-13] MEDS: CALCIUM/VITAMIN D 500 MG TAB PO SCH (09:01)
[2021-01-13] MEDS: MEMANTINE 5MG TABLET (NAMENDA) PO SCH ×2 (09:01→20:00)
[2021-01-13] MEDS: DONEPEZIL 5 MG TAB PO SCH (09:01)
[2021-01-13] MEDS: ENOXAPARIN 40MG/0.4ML SYRINGE (J1650 PER 10MG) SC SCH (09:02)
[2021-01-13] MEDS: BRIMONIDINE 0.15% OPHTH SOLN 5 ML OU SCH ×3 (09:03→20:00)
[2021-01-13] MEDS: cefTRIAXone SOD 1 GM in D5W MINI-BAG PLUS 50 ML IV SCH (09:04)
[2021-01-13] MEDS: TIMOLOL MALEATE 0.5% OPHTH SOLN 5 ML OU SCH ×2 (09:04→20:00)
[2021-01-13] MEDS: amLODIPine 5 MG TAB PO SCH (11:57)
[2021-01-13 14:00] VITALS: BP 112/59
[2021-01-13] MEDS: haloperidoL 0.5 MG TAB PO SCH (19:59)
[2021-01-13] MEDS: ROSUVASTATIN 10 MG TAB (CRESTOR) PO SCH (19:59)
[2021-01-13] MEDS: DULoxetine 30MG CAPSULE (CYMBALTA) PO SCH (19:59)
[2021-01-13] MEDS: LATANOPROST 0.005% OPHTH SOLN 2.5 ML OU SCH (20:00)
[2021-01-13] MEDS: NYSTATIN 100,000 UNITS/GM TOPICAL PWD 15 GM TOP PRN (20:00)
[2021-01-13] MEDS: ACETAMINOPHEN TAB 650MG DOSE (2X325MG) PO PRN (20:00)
[2021-01-13] MEDS: **NOTE PATIENT COMMENT** MISC XX SCH (20:01)
[2021-01-13 22:00] VITALS: BP 144/70
[2021-01-14] MEDS: LEVOTHYROXINE 50MCG TABLET (0.05MG) PO SCH (05:48)
[2021-01-14] MEDS: DONEPEZIL 5 MG TAB PO SCH (10:03)
[2021-01-14] MEDS: CYANOCOBALAMIN 500 MCG TAB PO SCH (10:03)
[2021-01-14] MEDS: ASPIRIN 81 MG CHEW TABLET PO SCH (10:04)
[2021-01-14] MEDS: OCUVITE 1 TAB PO SCH ×2 (10:04→22:14)
[2021-01-14] MEDS: LOSARTAN 25 MG TAB PO SCH (10:05)
[2021-01-14] MEDS: amLODIPine 5 MG TAB PO SCH (10:05)
[2021-01-14] MEDS: MEMANTINE 5MG TABLET (NAMENDA) PO SCH ×2 (10:06→22:14)
[2021-01-14] MEDS: VITAMIN D 1,000 INTERNATIONAL UNITS TABLET PO SCH (10:06)
[2021-01-14] MEDS: CALCIUM/VITAMIN D 500 MG TAB PO SCH (10:06)
[2021-01-14] MEDS: BRIMONIDINE 0.15% OPHTH SOLN 5 ML OU SCH ×3 (10:07→22:15)
[2021-01-14] MEDS: ENOXAPARIN 40MG/0.4ML SYRINGE (J1650 PER 10MG) SC SCH (10:07)
[2021-01-14] MEDS: TIMOLOL MALEATE 0.5% OPHTH SOLN 5 ML OU SCH ×2 (10:07→22:15)
[2021-01-14] MEDS: DOCUSATE SODIUM 100MG CAPSULE PO SCH (10:08)
[2021-01-14 14:00] VITALS: BP 153/74
[2021-01-14] MEDS: **NOTE PATIENT COMMENT** MISC XX SCH (21:00)
[2021-01-14 22:00] VITALS: BP 162/74
[2021-01-14] MEDS: CEFDINIR 300 MG CAP (OMNICEF) PO SCH (22:14)
[2021-01-14] MEDS: haloperidoL 0.5 MG TAB PO SCH (22:14)
[2021-01-14] MEDS: DULoxetine 30MG CAPSULE (CYMBALTA) PO SCH (22:14)
[2021-01-14] MEDS: ROSUVASTATIN 10 MG TAB (CRESTOR) PO SCH (22:14)
[2021-01-14] MEDS: LATANOPROST 0.005% OPHTH SOLN 2.5 ML OU SCH (22:15)
[2021-01-14] MEDS: ACETAMINOPHEN TAB 650MG DOSE (2X325MG) PO PRN (22:15)
[2021-01-15 06:00] VITALS: BP 143/78
[2021-01-15] MEDS: LEVOTHYROXINE 50MCG TABLET (0.05MG) PO SCH (06:45)
[2021-01-15] MEDS: DOCUSATE SODIUM 100MG CAPSULE PO SCH (09:47)
[2021-01-15] MEDS: CEFDINIR 300 MG CAP (OMNICEF) PO SCH ×2 (09:47→21:12)
[2021-01-15] MEDS: MIRALAX *UNIT DOSE* 17GM PACKET PO SCH (09:47)
[2021-01-15] MEDS: LOSARTAN 25 MG TAB PO SCH (09:47)
[2021-01-15] MEDS: CALCIUM/VITAMIN D 500 MG TAB PO SCH (09:47)
[2021-01-15] MEDS: CYANOCOBALAMIN 500 MCG TAB PO SCH (09:47)
[2021-01-15] MEDS: OCUVITE 1 TAB PO SCH ×2 (09:47→21:12)
[2021-01-15] MEDS: VITAMIN D 1,000 INTERNATIONAL UNITS TABLET PO SCH (09:48)
[2021-01-15] MEDS: ASPIRIN 81 MG CHEW TABLET PO SCH (09:48)
[2021-01-15] MEDS: amLODIPine 5 MG TAB PO SCH (09:48)
[2021-01-15] MEDS: DONEPEZIL 5 MG TAB PO SCH (09:48)
[2021-01-15] MEDS: MEMANTINE 5MG TABLET (NAMENDA) PO SCH ×2 (09:48→21:12)
[2021-01-15] MEDS: ENOXAPARIN 40MG/0.4ML SYRINGE (J1650 PER 10MG) SC SCH (09:48)
[2021-01-15] MEDS: NYSTATIN 100,000 UNITS/GM TOPICAL PWD 15 GM TOP PRN ×2 (09:49→21:13)
[2021-01-15] MEDS: TIMOLOL MALEATE 0.5% OPHTH SOLN 5 ML OU SCH ×2 (09:49→21:13)
[2021-01-15] MEDS: BRIMONIDINE 0.15% OPHTH SOLN 5 ML OU SCH ×3 (09:49→21:13)
[2021-01-15] MEDS: **NOTE PATIENT COMMENT** MISC XX SCH (21:00)
[2021-01-15] MEDS: ROSUVASTATIN 10 MG TAB (CRESTOR) PO SCH (21:11)
[2021-01-15] MEDS: haloperidoL 0.5 MG TAB PO SCH (21:12)
[2021-01-15] MEDS: DULoxetine 30MG CAPSULE (CYMBALTA) PO SCH (21:12)
[2021-01-15] MEDS: LATANOPROST 0.005% OPHTH SOLN 2.5 ML OU SCH (21:12)
[2021-01-15 22:00] VITALS: BP 100/53
[2021-01-16] MEDS: LEVOTHYROXINE 50MCG TABLET (0.05MG) PO SCH (05:46)
[2021-01-16 06:00] VITALS: BP 146/72
[2021-01-16] MEDS: CEFDINIR 300 MG CAP (OMNICEF) PO SCH (09:44)
[2021-01-16] MEDS: DOCUSATE SODIUM 100MG CAPSULE PO SCH (09:44)
[2021-01-16] MEDS: MEMANTINE 5MG TABLET (NAMENDA) PO SCH ×2 (09:44→22:09)
[2021-01-16] MEDS: DONEPEZIL 5 MG TAB PO SCH (09:44)
[2021-01-16] MEDS: VITAMIN D 1,000 INTERNATIONAL UNITS TABLET PO SCH (09:44)
[2021-01-16] MEDS: CYANOCOBALAMIN 500 MCG TAB PO SCH (09:44)
[2021-01-16] MEDS: OCUVITE 1 TAB PO SCH ×2 (09:44→22:10)
[2021-01-16] MEDS: amLODIPine 5 MG TAB PO SCH (09:45)
[2021-01-16] MEDS: LOSARTAN 25 MG TAB PO SCH (09:45)
[2021-01-16] MEDS: ASPIRIN 81 MG CHEW TABLET PO SCH (09:45)
[2021-01-16] MEDS: CALCIUM/VITAMIN D 500 MG TAB PO SCH (09:45)
[2021-01-16] MEDS: BRIMONIDINE 0.15% OPHTH SOLN 5 ML OU SCH ×3 (09:46→22:15)
[2021-01-16] MEDS: ENOXAPARIN 40MG/0.4ML SYRINGE (J1650 PER 10MG) SC SCH (09:46)
[2021-01-16] MEDS: TIMOLOL MALEATE 0.5% OPHTH SOLN 5 ML OU SCH ×2 (09:46→22:15)
[2021-01-16] MEDS: **NOTE PATIENT COMMENT** MISC XX SCH (21:00)
[2021-01-16] MEDS: DULoxetine 30MG CAPSULE (CYMBALTA) PO SCH (21:00)
[2021-01-16] MEDS: ROSUVASTATIN 10 MG TAB (CRESTOR) PO SCH (22:09)
[2021-01-16] MEDS: ACETAMINOPHEN TAB 650MG DOSE (2X325MG) PO PRN (22:10)
[2021-01-16] MEDS: haloperidoL 0.5 MG TAB PO SCH (22:10)
[2021-01-16] MEDS: LATANOPROST 0.005% OPHTH SOLN 2.5 ML OU SCH (22:15)
[2021-01-17 06:00] VITALS: BP 141/64
[2021-01-17] MEDS: LEVOTHYROXINE 50MCG TABLET (0.05MG) PO SCH (06:11)
[2021-01-17 08:27] LABS: BASO % 0.2 % (0.0-1.0); EOS # 0.3 10^3/uL (0.0-0.5); EOS % 3.8 % (0.0-3.0); HEMOGLOBIN 12.7 g/dl (12.0-15.5); LYMPH # 3.8 10^3/uL (1.5-5.0); LYMPH % 45.6 % (24.0-44.0); MEAN CORPUSCULAR HEMOGLOBIN 31.4 pg (27.0-33.0); MEAN CORPUSCULAR HGB CONC 32.6 g/dl (32.0-36.5); MEAN CORPUSCULAR VOLUME 96.3 fl (80.0-96.0); MONO # 0.6 10^3/uL (0.0-0.8); MONO % 7.2 % (2.0-8.0); NEUTROPHILS # 3.5 10^3/uL (1.5-8.5); NEUTROPHILS % 42.8 % (36.0-66.0); PLATELET COUNT, AUTOMATED 351 10^3/uL (150-450); RED BLOOD COUNT 4.05 10^6/uL (4.00-5.40); WHITE BLOOD COUNT 8.3 10^3/uL (4.0-10.0)
[2021-01-17 09:07] LABS: BLOOD UREA NITROGEN 10 MG/DL (7-18); CARBON DIOXIDE LEVEL 31 MEQ/L (21-32); CHLORIDE LEVEL 106 MEQ/L (98-107); CREATININE FOR GFR 0.36 MG/DL (0.55-1.30); GLOMERULAR FILTRATION RATE > 60.0 (>32); GLUCOSE, FASTING 92 MG/DL (70-100); MAGNESIUM LEVEL 2.1 MG/DL (1.8-2.4); SODIUM LEVEL 142 MEQ/L (136-145)
[2021-01-17] MEDS: ENOXAPARIN 40MG/0.4ML SYRINGE (J1650 PER 10MG) SC SCH (10:02)
[2021-01-17] MEDS: CYANOCOBALAMIN 500 MCG TAB PO SCH (10:02)
[2021-01-17] MEDS: ASPIRIN 81 MG CHEW TABLET PO SCH (10:02)
[2021-01-17] MEDS: OCUVITE 1 TAB PO SCH ×2 (10:03→21:51)
[2021-01-17] MEDS: CALCIUM/VITAMIN D 500 MG TAB PO SCH (10:03)
[2021-01-17] MEDS: amLODIPine 5 MG TAB PO SCH (10:03)
[2021-01-17] MEDS: DOCUSATE SODIUM 100MG CAPSULE PO SCH (10:03)
[2021-01-17] MEDS: DONEPEZIL 5 MG TAB PO SCH (10:03)
[2021-01-17] MEDS: LOSARTAN 25 MG TAB PO SCH (10:04)
[2021-01-17] MEDS: MEMANTINE 5MG TABLET (NAMENDA) PO SCH ×2 (10:04→21:51)
[2021-01-17] MEDS: VITAMIN D 1,000 INTERNATIONAL UNITS TABLET PO SCH (10:04)
[2021-01-17] MEDS: BRIMONIDINE 0.15% OPHTH SOLN 5 ML OU SCH ×3 (10:05→22:31)
[2021-01-17] MEDS: TIMOLOL MALEATE 0.5% OPHTH SOLN 5 ML OU SCH ×2 (10:05→22:31)
[2021-01-17] MEDS: **NOTE PATIENT COMMENT** MISC XX SCH (21:00)
[2021-01-17] MEDS: haloperidoL 0.5 MG TAB PO SCH (21:51)
[2021-01-17] MEDS: DULoxetine 30MG CAPSULE (CYMBALTA) PO SCH (21:51)
[2021-01-17] MEDS: ROSUVASTATIN 10 MG TAB (CRESTOR) PO SCH (21:51)
[2021-01-17] MEDS: LATANOPROST 0.005% OPHTH SOLN 2.5 ML OU SCH (22:31)
[2021-01-18] MEDS: LEVOTHYROXINE 50MCG TABLET (0.05MG) PO SCH (05:57)
[2021-01-18 06:28] VITALS: BP 135/65
[2021-01-18] MEDS: ENOXAPARIN 40MG/0.4ML SYRINGE (J1650 PER 10MG) SC SCH (11:02)
[2021-01-18] MEDS: MEMANTINE 5MG TABLET (NAMENDA) PO SCH ×2 (11:03→21:22)
[2021-01-18] MEDS: CYANOCOBALAMIN 500 MCG TAB PO SCH (11:03)
[2021-01-18] MEDS: DONEPEZIL 5 MG TAB PO SCH (11:04)
[2021-01-18] MEDS: amLODIPine 5 MG TAB PO SCH (11:04)
[2021-01-18] MEDS: CALCIUM/VITAMIN D 500 MG TAB PO SCH (11:05)
[2021-01-18] MEDS: OCUVITE 1 TAB PO SCH ×2 (11:05→21:22)
[2021-01-18] MEDS: LOSARTAN 25 MG TAB PO SCH (11:06)
[2021-01-18] MEDS: DOCUSATE SODIUM 100MG CAPSULE PO SCH (11:06)
[2021-01-18] MEDS: VITAMIN D 1,000 INTERNATIONAL UNITS TABLET PO SCH (11:07)
[2021-01-18] MEDS: ASPIRIN 81 MG CHEW TABLET PO SCH (11:07)
[2021-01-18] MEDS: TIMOLOL MALEATE 0.5% OPHTH SOLN 5 ML OU SCH ×2 (11:08→21:22)
[2021-01-18] MEDS: BRIMONIDINE 0.15% OPHTH SOLN 5 ML OU SCH ×3 (11:08→21:22)
[2021-01-18] MEDS: **NOTE PATIENT COMMENT** MISC XX SCH (21:00)
[2021-01-18] MEDS: ROSUVASTATIN 10 MG TAB (CRESTOR) PO SCH (21:21)
[2021-01-18] MEDS: haloperidoL 0.5 MG TAB PO SCH (21:22)
[2021-01-18] MEDS: LATANOPROST 0.005% OPHTH SOLN 2.5 ML OU SCH (21:22)
[2021-01-18] MEDS: DULoxetine 30MG CAPSULE (CYMBALTA) PO SCH (21:22)
[2021-01-19] MEDS: LEVOTHYROXINE 50MCG TABLET (0.05MG) PO SCH (05:57)
[2021-01-19 06:10] VITALS: BP 135/65
[2021-01-19] MEDS: LOSARTAN 25 MG TAB PO SCH (10:21)
[2021-01-19] MEDS: ENOXAPARIN 40MG/0.4ML SYRINGE (J1650 PER 10MG) SC SCH (10:21)
[2021-01-19] MEDS: ASPIRIN 81 MG CHEW TABLET PO SCH (10:21)
[2021-01-19] MEDS: CYANOCOBALAMIN 500 MCG TAB PO SCH (10:22)
[2021-01-19] MEDS: DOCUSATE SODIUM 100MG CAPSULE PO SCH (10:22)
[2021-01-19] MEDS: OCUVITE 1 TAB PO SCH ×2 (10:25→21:47)
[2021-01-19] MEDS: MEMANTINE 5MG TABLET (NAMENDA) PO SCH ×2 (10:26→21:47)
[2021-01-19] MEDS: DONEPEZIL 5 MG TAB PO SCH (10:26)
[2021-01-19] MEDS: amLODIPine 5 MG TAB PO SCH (10:26)
[2021-01-19] MEDS: CALCIUM/VITAMIN D 500 MG TAB PO SCH (10:27)
[2021-01-19] MEDS: TIMOLOL MALEATE 0.5% OPHTH SOLN 5 ML OU SCH ×2 (10:28→21:47)
[2021-01-19] MEDS: BRIMONIDINE 0.15% OPHTH SOLN 5 ML OU SCH ×3 (10:28→21:47)
[2021-01-19] MEDS: VITAMIN D 1,000 INTERNATIONAL UNITS TABLET PO SCH (10:28)
[2021-01-19] MEDS: MIRALAX *UNIT DOSE* 17GM PACKET PO SCH (10:30)
[2021-01-19 20:00] VITALS: BP 143/67
[2021-01-19] MEDS: **NOTE PATIENT COMMENT** MISC XX SCH (21:00)
[2021-01-19] MEDS: DULoxetine 30MG CAPSULE (CYMBALTA) PO SCH (21:46)
[2021-01-19] MEDS: ROSUVASTATIN 10 MG TAB (CRESTOR) PO SCH (21:46)
[2021-01-19] MEDS: haloperidoL 0.5 MG TAB PO SCH (21:47)
[2021-01-19] MEDS: LATANOPROST 0.005% OPHTH SOLN 2.5 ML OU SCH (21:47)
[2021-01-20 06:00] VITALS: BP 138/66
[2021-01-20] MEDS: LEVOTHYROXINE 50MCG TABLET (0.05MG) PO SCH (06:08)
[2021-01-20] MEDS: OCUVITE 1 TAB PO SCH ×2 (10:05→22:19)
[2021-01-20] MEDS: DOCUSATE SODIUM 100MG CAPSULE PO SCH (10:05)
[2021-01-20] MEDS: CALCIUM/VITAMIN D 500 MG TAB PO SCH (10:05)
[2021-01-20] MEDS: ASPIRIN 81 MG CHEW TABLET PO SCH (10:05)
[2021-01-20] MEDS: CYANOCOBALAMIN 500 MCG TAB PO SCH (10:09)
[2021-01-20] MEDS: MEMANTINE 5MG TABLET (NAMENDA) PO SCH ×2 (10:09→22:20)
[2021-01-20] MEDS: LOSARTAN 25 MG TAB PO SCH (10:09)
[2021-01-20] MEDS: ENOXAPARIN 40MG/0.4ML SYRINGE (J1650 PER 10MG) SC SCH (10:10)
[2021-01-20] MEDS: VITAMIN D 1,000 INTERNATIONAL UNITS TABLET PO SCH (10:10)
[2021-01-20] MEDS: TIMOLOL MALEATE 0.5% OPHTH SOLN 5 ML OU SCH ×2 (10:10→22:20)
[2021-01-20] MEDS: amLODIPine 5 MG TAB PO SCH (10:10)
[2021-01-20] MEDS: DONEPEZIL 5 MG TAB PO SCH (10:10)
[2021-01-20] MEDS: BRIMONIDINE 0.15% OPHTH SOLN 5 ML OU SCH ×3 (10:11→22:20)
[2021-01-20] MEDS: **NOTE PATIENT COMMENT** MISC XX SCH (21:00)
[2021-01-20] MEDS: haloperidoL 0.5 MG TAB PO SCH (22:19)
[2021-01-20] MEDS: DULoxetine 30MG CAPSULE (CYMBALTA) PO SCH (22:19)
[2021-01-20] MEDS: ROSUVASTATIN 10 MG TAB (CRESTOR) PO SCH (22:19)
[2021-01-20] MEDS: ACETAMINOPHEN TAB 650MG DOSE (2X325MG) PO PRN (22:20)
[2021-01-20] MEDS: LATANOPROST 0.005% OPHTH SOLN 2.5 ML OU SCH (22:20)
[2021-01-21] MEDS: LEVOTHYROXINE 50MCG TABLET (0.05MG) PO SCH (05:59)
[2021-01-21 07:00] VITALS: BP 146/67
[2021-01-21] MEDS: CALCIUM/VITAMIN D 500 MG TAB PO SCH (09:55)
[2021-01-21] MEDS: OCUVITE 1 TAB PO SCH ×2 (09:55→20:32)
[2021-01-21] MEDS: VITAMIN D 1,000 INTERNATIONAL UNITS TABLET PO SCH (09:56)
[2021-01-21] MEDS: CYANOCOBALAMIN 500 MCG TAB PO SCH (09:56)
[2021-01-21] MEDS: DONEPEZIL 5 MG TAB PO SCH (09:56)
[2021-01-21] MEDS: ASPIRIN 81 MG CHEW TABLET PO SCH (09:56)
[2021-01-21] MEDS: LOSARTAN 25 MG TAB PO SCH (09:56)
[2021-01-21] MEDS: DOCUSATE SODIUM 100MG CAPSULE PO SCH (09:56)
[2021-01-21] MEDS: amLODIPine 5 MG TAB PO SCH (09:57)
[2021-01-21] MEDS: MEMANTINE 5MG TABLET (NAMENDA) PO SCH ×2 (09:57→20:27)
[2021-01-21] MEDS: ENOXAPARIN 40MG/0.4ML SYRINGE (J1650 PER 10MG) SC SCH (09:58)
[2021-01-21] MEDS: BRIMONIDINE 0.15% OPHTH SOLN 5 ML OU SCH ×3 (09:58→20:28)
[2021-01-21] MEDS: TIMOLOL MALEATE 0.5% OPHTH SOLN 5 ML OU SCH ×2 (09:58→20:28)
[2021-01-21] MEDS: MOM 30ML SUSPENSION UDC PO PRN (13:07)
[2021-01-21 17:38] LABS: HEMATOCRIT 38.7 % (36.0-47.0); HEMOGLOBIN 13.1 g/dl (12.0-15.5); MEAN CORPUSCULAR HGB CONC 33.9 g/dl (32.0-36.5); MEAN CORPUSCULAR VOLUME 94.4 fl (80.0-96.0); PLATELET COUNT, AUTOMATED 380 10^3/uL (150-450); WHITE BLOOD COUNT 10.1 10^3/uL (4.0-10.0)
[2021-01-21 18:03] LABS: ALBUMIN 3.1 GM/DL (3.2-5.2); ALT/SGPT 32 U/L (12-78); BILIRUBIN,TOTAL 0.2 MG/DL (0.2-1.0); BLOOD UREA NITROGEN 18 MG/DL (7-18); CALCIUM LEVEL 8.8 MG/DL (8.8-10.2); CARBON DIOXIDE LEVEL 28 MEQ/L (21-32); CHLORIDE LEVEL 107 MEQ/L (98-107); CREATININE FOR GFR 0.55 MG/DL (0.55-1.30); GLOMERULAR FILTRATION RATE > 60.0 (>32); GLUCOSE, FASTING 137 MG/DL (70-100); MAGNESIUM LEVEL 2.2 MG/DL (1.8-2.4); POTASSIUM SERUM 4.1 MEQ/L (3.5-5.1); SODIUM LEVEL 140 MEQ/L (136-145); TOTAL PROTEIN 6.3 GM/DL (6.4-8.2)
[2021-01-21 18:56] LABS: ATYPICAL LYMPH 2 % (0-5); BASOPHILS 1 % (0-1); LYMPHOCYTES 57 % (16-44); MONOCYTES 1 % (0-5); NEUTROPHILS 37 % (28-66)
[2021-01-21 18:57] LABS: OVALOCYTES 1+; PLATELET ESTIMATE NORMAL (NORMAL); POIKILOCYTOSIS 1+
[2021-01-21] MEDS: ACETAMINOPHEN TAB 650MG DOSE (2X325MG) PO PRN (20:27)
[2021-01-21] MEDS: NITROFURANTOIN (MACROBID) 100 MG CAP PO SCH (20:27)
[2021-01-21] MEDS: DULoxetine 30MG CAPSULE (CYMBALTA) PO SCH (20:27)
[2021-01-21] MEDS: ROSUVASTATIN 10 MG TAB (CRESTOR) PO SCH (20:27)
[2021-01-21] MEDS: haloperidoL 0.5 MG TAB PO SCH (20:27)
[2021-01-21] MEDS: LATANOPROST 0.005% OPHTH SOLN 2.5 ML OU SCH (20:28)
[2021-01-21] MEDS: **NOTE PATIENT COMMENT** MISC XX SCH (20:32)
[2021-01-22] MEDS: **NOTE PATIENT COMMENT** MISC XX SCH (05:00)
[2021-01-22] MEDS: LEVOTHYROXINE 50MCG TABLET (0.05MG) PO SCH (06:13)
[2021-01-22] MEDS: DOCUSATE SODIUM 100MG CAPSULE PO SCH (09:59)
[2021-01-22] MEDS: CYANOCOBALAMIN 500 MCG TAB PO SCH (09:59)
[2021-01-22] MEDS: MIRALAX *UNIT DOSE* 17GM PACKET PO SCH (09:59)
[2021-01-22] MEDS: OCUVITE 1 TAB PO SCH ×2 (09:59→21:55)
[2021-01-22] MEDS: CALCIUM/VITAMIN D 500 MG TAB PO SCH (09:59)
[2021-01-22 10:00] VITALS: BP 149/72
[2021-01-22] MEDS: ASPIRIN 81 MG CHEW TABLET PO SCH (10:00)
[2021-01-22] MEDS: VITAMIN D 1,000 INTERNATIONAL UNITS TABLET PO SCH (10:00)
[2021-01-22] MEDS: DONEPEZIL 5 MG TAB PO SCH (10:00)
[2021-01-22] MEDS: MEMANTINE 5MG TABLET (NAMENDA) PO SCH ×2 (10:01→21:55)
[2021-01-22] MEDS: ENOXAPARIN 40MG/0.4ML SYRINGE (J1650 PER 10MG) SC SCH (10:01)
[2021-01-22] MEDS: TIMOLOL MALEATE 0.5% OPHTH SOLN 5 ML OU SCH ×2 (10:01→21:55)
[2021-01-22] MEDS: BRIMONIDINE 0.15% OPHTH SOLN 5 ML OU SCH ×3 (10:01→21:55)
[2021-01-22] MEDS: LOSARTAN 25 MG TAB PO SCH (10:04)
[2021-01-22] MEDS: amLODIPine 5 MG TAB PO SCH (10:05)
[2021-01-22] MEDS: ACETAMINOPHEN TAB 650MG DOSE (2X325MG) PO PRN ×2 (15:28→21:57)
[2021-01-22] MEDS: haloperidoL 0.5 MG TAB PO SCH (21:54)
[2021-01-22] MEDS: ROSUVASTATIN 10 MG TAB (CRESTOR) PO SCH (21:54)
[2021-01-22] MEDS: DULoxetine 30MG CAPSULE (CYMBALTA) PO SCH (21:54)
[2021-01-22] MEDS: NITROFURANTOIN (MACROBID) 100 MG CAP PO SCH (21:55)
[2021-01-22] MEDS: LATANOPROST 0.005% OPHTH SOLN 2.5 ML OU SCH (21:55)
[2021-01-23] MEDS: LEVOTHYROXINE 50MCG TABLET (0.05MG) PO SCH (06:28)
[2021-01-23 06:30] VITALS: BP 142/71
[2021-01-23] MEDS: TIMOLOL MALEATE 0.5% OPHTH SOLN 5 ML OU SCH ×2 (09:11→21:08)
[2021-01-23] MEDS: ASPIRIN 81 MG CHEW TABLET PO SCH (09:12)
[2021-01-23] MEDS: DONEPEZIL 5 MG TAB PO SCH (09:12)
[2021-01-23] MEDS: ENOXAPARIN 40MG/0.4ML SYRINGE (J1650 PER 10MG) SC SCH (09:12)
[2021-01-23] MEDS: VITAMIN D 1,000 INTERNATIONAL UNITS TABLET PO SCH (09:13)
[2021-01-23] MEDS: CALCIUM/VITAMIN D 500 MG TAB PO SCH (09:13)
[2021-01-23] MEDS: CYANOCOBALAMIN 500 MCG TAB PO SCH (09:13)
[2021-01-23] MEDS: MEMANTINE 5MG TABLET (NAMENDA) PO SCH ×2 (09:13→21:08)
[2021-01-23] MEDS: OCUVITE 1 TAB PO SCH ×2 (09:13→21:08)
[2021-01-23] MEDS: BRIMONIDINE 0.15% OPHTH SOLN 5 ML OU SCH ×3 (09:13→21:08)
[2021-01-23] MEDS: DOCUSATE SODIUM 100MG CAPSULE PO SCH (09:13)
[2021-01-23] MEDS: LOSARTAN 25 MG TAB PO SCH (09:14)
[2021-01-23] MEDS: amLODIPine 5 MG TAB PO SCH (09:14)
[2021-01-23] MEDS: ACETAMINOPHEN TAB 650MG DOSE (2X325MG) PO PRN ×2 (14:53→21:08)
[2021-01-23] MEDS: **NOTE PATIENT COMMENT** MISC XX SCH (21:00)
[2021-01-23] MEDS: DULoxetine 30MG CAPSULE (CYMBALTA) PO SCH (21:07)
[2021-01-23] MEDS: NITROFURANTOIN (MACROBID) 100 MG CAP PO SCH (21:07)
[2021-01-23] MEDS: ROSUVASTATIN 10 MG TAB (CRESTOR) PO SCH (21:07)
[2021-01-23] MEDS: haloperidoL 0.5 MG TAB PO SCH (21:08)
[2021-01-23] MEDS: LATANOPROST 0.005% OPHTH SOLN 2.5 ML OU SCH (21:08)
[2021-01-24 06:00] VITALS: BP 144/92
[2021-01-24] MEDS: LEVOTHYROXINE 50MCG TABLET (0.05MG) PO SCH (06:05)
[2021-01-24] MEDS: VITAMIN D 1,000 INTERNATIONAL UNITS TABLET PO SCH (09:20)
[2021-01-24] MEDS: DOCUSATE SODIUM 100MG CAPSULE PO SCH (09:20)
[2021-01-24] MEDS: OCUVITE 1 TAB PO SCH ×2 (09:20→21:32)
[2021-01-24] MEDS: CALCIUM/VITAMIN D 500 MG TAB PO SCH (09:20)
[2021-01-24] MEDS: ASPIRIN 81 MG CHEW TABLET PO SCH (09:20)
[2021-01-24] MEDS: LOSARTAN 25 MG TAB PO SCH (09:21)
[2021-01-24] MEDS: CYANOCOBALAMIN 500 MCG TAB PO SCH (09:21)
[2021-01-24] MEDS: MEMANTINE 5MG TABLET (NAMENDA) PO SCH ×2 (09:21→21:32)
[2021-01-24] MEDS: amLODIPine 5 MG TAB PO SCH (09:21)
[2021-01-24] MEDS: BRIMONIDINE 0.15% OPHTH SOLN 5 ML OU SCH ×3 (09:22→21:32)
[2021-01-24] MEDS: DONEPEZIL 5 MG TAB PO SCH (09:22)
[2021-01-24] MEDS: TIMOLOL MALEATE 0.5% OPHTH SOLN 5 ML OU SCH ×2 (09:22→21:33)
[2021-01-24] MEDS: ENOXAPARIN 40MG/0.4ML SYRINGE (J1650 PER 10MG) SC SCH (09:22)
[2021-01-24] MEDS: MOM 30ML SUSPENSION UDC PO PRN (13:19)
[2021-01-24] MEDS: **NOTE PATIENT COMMENT** MISC XX SCH (21:00)
[2021-01-24] MEDS: haloperidoL 0.5 MG TAB PO SCH (21:32)
[2021-01-24] MEDS: ROSUVASTATIN 10 MG TAB (CRESTOR) PO SCH (21:32)
[2021-01-24] MEDS: DULoxetine 30MG CAPSULE (CYMBALTA) PO SCH (21:32)
[2021-01-24] MEDS: LATANOPROST 0.005% OPHTH SOLN 2.5 ML OU SCH (21:33)
[2021-01-25] MEDS: LEVOTHYROXINE 50MCG TABLET (0.05MG) PO SCH (05:39)
[2021-01-25 06:00] VITALS: BP 129/63
[2021-01-25] MEDS: ENOXAPARIN 40MG/0.4ML SYRINGE (J1650 PER 10MG) SC SCH (08:42)
[2021-01-25] MEDS: OCUVITE 1 TAB PO SCH ×2 (08:42→21:12)
[2021-01-25] MEDS: DOCUSATE SODIUM 100MG CAPSULE PO SCH (08:42)
[2021-01-25] MEDS: MEMANTINE 5MG TABLET (NAMENDA) PO SCH ×2 (08:42→21:11)
[2021-01-25] MEDS: CYANOCOBALAMIN 500 MCG TAB PO SCH (08:42)
[2021-01-25] MEDS: ASPIRIN 81 MG CHEW TABLET PO SCH (08:42)
[2021-01-25] MEDS: CALCIUM/VITAMIN D 500 MG TAB PO SCH (08:43)
[2021-01-25] MEDS: ACETAMINOPHEN TAB 650MG DOSE (2X325MG) PO PRN ×2 (08:43→15:13)
[2021-01-25] MEDS: DONEPEZIL 5 MG TAB PO SCH (08:43)
[2021-01-25] MEDS: VITAMIN D 1,000 INTERNATIONAL UNITS TABLET PO SCH (08:44)
[2021-01-25] MEDS: LOSARTAN 25 MG TAB PO SCH (08:44)
[2021-01-25] MEDS: amLODIPine 5 MG TAB PO SCH (08:44)
[2021-01-25] MEDS: BRIMONIDINE 0.15% OPHTH SOLN 5 ML OU SCH ×3 (08:44→21:12)
[2021-01-25] MEDS: TIMOLOL MALEATE 0.5% OPHTH SOLN 5 ML OU SCH ×2 (08:45→21:12)
[2021-01-25] MEDS: **NOTE PATIENT COMMENT** MISC XX SCH (21:00)
[2021-01-25] MEDS: DULoxetine 30MG CAPSULE (CYMBALTA) PO SCH (21:11)
[2021-01-25] MEDS: haloperidoL 0.5 MG TAB PO SCH (21:12)
[2021-01-25] MEDS: LATANOPROST 0.005% OPHTH SOLN 2.5 ML OU SCH (21:12)
[2021-01-25] MEDS: ROSUVASTATIN 10 MG TAB (CRESTOR) PO SCH (21:12)
[2021-01-26] MEDS: LEVOTHYROXINE 50MCG TABLET (0.05MG) PO SCH (05:21)
[2021-01-26] MEDS: ACETAMINOPHEN TAB 650MG DOSE (2X325MG) PO PRN ×3 (05:22→17:55)
[2021-01-26 06:00] VITALS: BP 151/62
[2021-01-26 09:00] VITALS: BP 151/62
[2021-01-26] MEDS: MIRALAX *UNIT DOSE* 17GM PACKET PO SCH (10:04)
[2021-01-26] MEDS: ASPIRIN 81 MG CHEW TABLET PO SCH (10:04)
[2021-01-26] MEDS: ENOXAPARIN 40MG/0.4ML SYRINGE (J1650 PER 10MG) SC SCH (10:05)
[2021-01-26] MEDS: CYANOCOBALAMIN 500 MCG TAB PO SCH (10:05)
[2021-01-26] MEDS: OCUVITE 1 TAB PO SCH ×2 (10:05→20:21)
[2021-01-26] MEDS: CALCIUM/VITAMIN D 500 MG TAB PO SCH (10:05)
[2021-01-26] MEDS: DOCUSATE SODIUM 100MG CAPSULE PO SCH (10:06)
[2021-01-26] MEDS: DONEPEZIL 5 MG TAB PO SCH (10:06)
[2021-01-26] MEDS: VITAMIN D 1,000 INTERNATIONAL UNITS TABLET PO SCH (10:06)
[2021-01-26] MEDS: MEMANTINE 5MG TABLET (NAMENDA) PO SCH ×2 (10:06→20:21)
[2021-01-26] MEDS: BRIMONIDINE 0.15% OPHTH SOLN 5 ML OU SCH ×3 (10:07→20:22)
[2021-01-26] MEDS: LOSARTAN 25 MG TAB PO SCH (10:07)
[2021-01-26] MEDS: amLODIPine 5 MG TAB PO SCH (10:07)
[2021-01-26] MEDS: TIMOLOL MALEATE 0.5% OPHTH SOLN 5 ML OU SCH ×2 (10:08→20:22)
[2021-01-26] MEDS: haloperidoL 0.5 MG TAB PO SCH (20:21)
[2021-01-26] MEDS: DULoxetine 30MG CAPSULE (CYMBALTA) PO SCH (20:21)
[2021-01-26] MEDS: ROSUVASTATIN 10 MG TAB (CRESTOR) PO SCH (20:21)
[2021-01-26] MEDS: **NOTE PATIENT COMMENT** MISC XX SCH (20:22)
[2021-01-26] MEDS: LATANOPROST 0.005% OPHTH SOLN 2.5 ML OU SCH (20:22)
[2021-01-26] MEDS ORDERED: NITROFURANTOIN (MACROBID) 100 MG CAP PO SCH (21:00)
[2021-01-27 06:30] VITALS: BP 124/53
[2021-01-27] MEDS: LEVOTHYROXINE 50MCG TABLET (0.05MG) PO SCH (06:39)
[2021-01-27] MEDS: CYANOCOBALAMIN 500 MCG TAB PO SCH (10:58)
[2021-01-27] MEDS: DOCUSATE SODIUM 100MG CAPSULE PO SCH (10:59)
[2021-01-27] MEDS: ENOXAPARIN 40MG/0.4ML SYRINGE (J1650 PER 10MG) SC SCH (10:59)
[2021-01-27] MEDS: OCUVITE 1 TAB PO SCH ×2 (10:59→19:28)
[2021-01-27] MEDS: MEMANTINE 5MG TABLET (NAMENDA) PO SCH ×2 (10:59→19:28)
[2021-01-27] MEDS: ASPIRIN 81 MG CHEW TABLET PO SCH (10:59)
[2021-01-27] MEDS: VITAMIN D 1,000 INTERNATIONAL UNITS TABLET PO SCH (10:59)
[2021-01-27] MEDS: CALCIUM/VITAMIN D 500 MG TAB PO SCH (11:00)
[2021-01-27] MEDS: DONEPEZIL 5 MG TAB PO SCH (11:00)
[2021-01-27] MEDS: LOSARTAN 25 MG TAB PO SCH (11:01)
[2021-01-27] MEDS: amLODIPine 5 MG TAB PO SCH (11:02)
[2021-01-27] MEDS: TIMOLOL MALEATE 0.5% OPHTH SOLN 5 ML OU SCH ×2 (11:02→19:30)
[2021-01-27] MEDS: BRIMONIDINE 0.15% OPHTH SOLN 5 ML OU SCH ×3 (11:02→19:30)
[2021-01-27] MEDS: ACETAMINOPHEN TAB 650MG DOSE (2X325MG) PO PRN ×3 (12:33→23:47)
[2021-01-27] MEDS: DULoxetine 30MG CAPSULE (CYMBALTA) PO SCH (19:27)
[2021-01-27] MEDS: ROSUVASTATIN 10 MG TAB (CRESTOR) PO SCH (19:27)
[2021-01-27] MEDS: haloperidoL 0.5 MG TAB PO SCH (19:27)
[2021-01-27] MEDS: LATANOPROST 0.005% OPHTH SOLN 2.5 ML OU SCH (19:31)
[2021-01-27] MEDS: **NOTE PATIENT COMMENT** MISC XX SCH (19:31)
[2021-01-27] MEDS: haloperidoL 0.5 MG TAB PO PRN (22:50)
[2021-01-28 06:00] VITALS: BP 126/84
[2021-01-28] MEDS: LEVOTHYROXINE 50MCG TABLET (0.05MG) PO SCH (06:00)
[2021-01-28] MEDS: ACETAMINOPHEN TAB 650MG DOSE (2X325MG) PO PRN (10:18)
[2021-01-28] MEDS: OCUVITE 1 TAB PO SCH ×2 (10:18→20:41)
[2021-01-28] MEDS: ASPIRIN 81 MG CHEW TABLET PO SCH (10:18)
[2021-01-28] MEDS: VITAMIN D 1,000 INTERNATIONAL UNITS TABLET PO SCH (10:18)
[2021-01-28] MEDS: CALCIUM/VITAMIN D 500 MG TAB PO SCH (10:19)
[2021-01-28] MEDS: MEMANTINE 5MG TABLET (NAMENDA) PO SCH ×2 (10:19→20:41)
[2021-01-28] MEDS: DOCUSATE SODIUM 100MG CAPSULE PO SCH (10:19)
[2021-01-28] MEDS: CYANOCOBALAMIN 500 MCG TAB PO SCH (10:19)
[2021-01-28] MEDS: TIMOLOL MALEATE 0.5% OPHTH SOLN 5 ML OU SCH ×2 (10:20→20:42)
[2021-01-28] MEDS: BRIMONIDINE 0.15% OPHTH SOLN 5 ML OU SCH ×3 (10:20→20:42)
[2021-01-28] MEDS: ENOXAPARIN 40MG/0.4ML SYRINGE (J1650 PER 10MG) SC SCH (10:20)
[2021-01-28] MEDS: LOSARTAN 25 MG TAB PO SCH (10:22)
[2021-01-28] MEDS: amLODIPine 5 MG TAB PO SCH (10:23)
[2021-01-28] MEDS: DONEPEZIL 5 MG TAB PO SCH (10:34)
[2021-01-28] MEDS: haloperidoL 0.5 MG TAB PO PRN (15:57)
[2021-01-28] MEDS: ROSUVASTATIN 10 MG TAB (CRESTOR) PO SCH (20:41)
[2021-01-28] MEDS: DULoxetine 30MG CAPSULE (CYMBALTA) PO SCH (20:41)
[2021-01-28] MEDS: LATANOPROST 0.005% OPHTH SOLN 2.5 ML OU SCH (20:42)
[2021-01-28] MEDS: **NOTE PATIENT COMMENT** MISC XX SCH (20:51)
[2021-01-28] MEDS: haloperidoL 0.5 MG TAB PO SCH (22:01)
[2021-01-29 06:00] VITALS: BP 152/74
[2021-01-29] MEDS: LEVOTHYROXINE 50MCG TABLET (0.05MG) PO SCH (06:06)
[2021-01-29] MEDS: OCUVITE 1 TAB PO SCH ×2 (09:14→20:23)
[2021-01-29] MEDS: MEMANTINE 5MG TABLET (NAMENDA) PO SCH ×2 (09:14→20:22)
[2021-01-29] MEDS: ENOXAPARIN 40MG/0.4ML SYRINGE (J1650 PER 10MG) SC SCH (09:14)
[2021-01-29] MEDS: ASPIRIN 81 MG CHEW TABLET PO SCH (09:14)
[2021-01-29] MEDS: CALCIUM/VITAMIN D 500 MG TAB PO SCH (09:14)
[2021-01-29] MEDS: CYANOCOBALAMIN 500 MCG TAB PO SCH (09:14)
[2021-01-29] MEDS: MIRALAX *UNIT DOSE* 17GM PACKET PO SCH (09:14)
[2021-01-29] MEDS: DOCUSATE SODIUM 100MG CAPSULE PO SCH (09:15)
[2021-01-29] MEDS: DONEPEZIL 5 MG TAB PO SCH (09:16)
[2021-01-29] MEDS: VITAMIN D 1,000 INTERNATIONAL UNITS TABLET PO SCH (09:16)
[2021-01-29] MEDS: BRIMONIDINE 0.15% OPHTH SOLN 5 ML OU SCH ×3 (09:16→20:24)
[2021-01-29] MEDS: TIMOLOL MALEATE 0.5% OPHTH SOLN 5 ML OU SCH ×2 (09:16→20:24)
[2021-01-29] MEDS: amLODIPine 5 MG TAB PO SCH (09:19)
[2021-01-29] MEDS: LOSARTAN 25 MG TAB PO SCH (09:19)
[2021-01-29] MEDS: ACETAMINOPHEN TAB 650MG DOSE (2X325MG) PO PRN ×2 (10:46→20:24)
[2021-01-29] MEDS: haloperidoL 0.5 MG TAB PO SCH (20:22)
[2021-01-29] MEDS: DULoxetine 30MG CAPSULE (CYMBALTA) PO SCH (20:22)
[2021-01-29] MEDS: ROSUVASTATIN 10 MG TAB (CRESTOR) PO SCH (20:22)
[2021-01-29] MEDS: LATANOPROST 0.005% OPHTH SOLN 2.5 ML OU SCH (20:24)
[2021-01-29] MEDS: **NOTE PATIENT COMMENT** MISC XX SCH (20:44)
[2021-01-30] MEDS: ACETAMINOPHEN TAB 650MG DOSE (2X325MG) PO PRN ×2 (03:36→20:42)
[2021-01-30 06:00] VITALS: BP 156/70
[2021-01-30] MEDS: LEVOTHYROXINE 50MCG TABLET (0.05MG) PO SCH (06:16)
[2021-01-30 06:43] LABS: HEMOGLOBIN 12.4 g/dl (12.0-15.5); MEAN CORPUSCULAR HEMOGLOBIN 31.6 pg (27.0-33.0); MEAN CORPUSCULAR HGB CONC 32.6 g/dl (32.0-36.5); MEAN CORPUSCULAR VOLUME 96.7 fl (80.0-96.0); PLATELET COUNT, AUTOMATED 287 10^3/uL (150-450); RED BLOOD COUNT 3.93 10^6/uL (4.00-5.40)
[2021-01-30 06:59] LABS: BLOOD UREA NITROGEN 13 MG/DL (7-18); CARBON DIOXIDE LEVEL 26 MEQ/L (21-32); CHLORIDE LEVEL 107 MEQ/L (98-107); GLOMERULAR FILTRATION RATE > 60.0 (>32); GLUCOSE, FASTING 95 MG/DL (70-100); POTASSIUM SERUM 4.4 MEQ/L (3.5-5.1); SODIUM LEVEL 140 MEQ/L (136-145)
[2021-01-30 07:06] LABS: WHITE BLOOD COUNT 12.5 10^3/uL (4.0-10.0)
[2021-01-30 07:37] LABS: EOSINOPHILS 1 % (0-3); LYMPHOCYTES 53 % (16-44); MONOCYTES 3 % (0-5); NEUTROPHILS 43 % (28-66); PLATELET ESTIMATE NORMAL (NORMAL)
[2021-01-30] MEDS: DOCUSATE SODIUM 100MG CAPSULE PO SCH (09:00)
[2021-01-30] MEDS: DONEPEZIL 5 MG TAB PO SCH (09:11)
[2021-01-30] MEDS: ASPIRIN 81 MG CHEW TABLET PO SCH (09:11)
[2021-01-30] MEDS: CALCIUM/VITAMIN D 500 MG TAB PO SCH (09:11)
[2021-01-30] MEDS: amLODIPine 5 MG TAB PO SCH (09:11)
[2021-01-30] MEDS: CYANOCOBALAMIN 500 MCG TAB PO SCH (09:11)
[2021-01-30] MEDS: OCUVITE 1 TAB PO SCH ×2 (09:11→20:43)
[2021-01-30] MEDS: ENOXAPARIN 40MG/0.4ML SYRINGE (J1650 PER 10MG) SC SCH (09:12)
[2021-01-30] MEDS: MEMANTINE 5MG TABLET (NAMENDA) PO SCH ×2 (09:12→20:43)
[2021-01-30 09:13] VITALS: BP 156/70
[2021-01-30] MEDS: BRIMONIDINE 0.15% OPHTH SOLN 5 ML OU SCH ×3 (09:13→20:43)
[2021-01-30] MEDS: LOSARTAN 25 MG TAB PO SCH (09:13)
[2021-01-30] MEDS: VITAMIN D 1,000 INTERNATIONAL UNITS TABLET PO SCH (09:13)
[2021-01-30] MEDS: TIMOLOL MALEATE 0.5% OPHTH SOLN 5 ML OU SCH ×2 (09:14→20:43)
[2021-01-30 11:15] LABS: RSV AMPLIFICATION NEGATIVE (NEGATIVE)
[2021-01-30] MEDS: DULoxetine 30MG CAPSULE (CYMBALTA) PO SCH (20:42)
[2021-01-30] MEDS: ROSUVASTATIN 10 MG TAB (CRESTOR) PO SCH (20:43)
[2021-01-30] MEDS: LATANOPROST 0.005% OPHTH SOLN 2.5 ML OU SCH (20:43)
[2021-01-30] MEDS: **NOTE PATIENT COMMENT** MISC XX SCH (20:43)
[2021-01-30] MEDS: haloperidoL 0.5 MG TAB PO SCH (20:43)
[2021-01-31 06:00] VITALS: BP 150/69
[2021-01-31] MEDS: LEVOTHYROXINE 50MCG TABLET (0.05MG) PO SCH (06:24)
[2021-01-31] MEDS ORDERED: NITR100C2 PO (07:26)
[2021-01-31] MEDS: ENOXAPARIN 40MG/0.4ML SYRINGE (J1650 PER 10MG) SC SCH (08:01)
== END 2021-01-31 09:00 | DRG 689 ==
LOC: EDBD 14:39 → M ED 14:39 → M ED INP 14:40 → ENRESERV 21:37 → M MS5PR 23:11 → OBSVTOIN 01-11 12:53
PROVIDERS: ADMIT Internal Medicine; ATTEND General Practice
DX: N39.0 Urinary tract infection, site not specified (principal); G93.41 Metabolic encephalopathy; M62.82 Rhabdomyolysis; G31.83 Neurocognitive disorder with Lewy bodies; B96.29 Other Escherichia coli [E. coli] as the cause of diseases classified elsewhere; I10 Essential (primary) hypertension; F02.80 Dementia in other diseases classified elsewhere, unspecified severity, without behavioral disturbance, psychotic disturbance, mood disturbance, and anxiety; H35.30 Unspecified macular degeneration; E03.9 Hypothyroidism, unspecified; H40.1190 Primary open-angle glaucoma, unspecified eye, stage unspecified; Z86.73 Personal history of transient ischemic attack (TIA), and cerebral infarction without residual deficits; M19.90 Unspecified osteoarthritis, unspecified site; E66.9 Obesity, unspecified; Z68.36 Body mass index [BMI] 36.0-36.9, adult; Z79.899 Other long term (current) drug therapy; Z79.82 Long term (current) use of aspirin; Z98.41 Cataract extraction status, right eye; Z98.42 Cataract extraction status, left eye; E87.6 Hypokalemia; E83.52 Hypercalcemia; Z88.5 Allergy status to narcotic agent; Z88.8 Allergy status to other drugs, medicaments and biological substances

== ENCOUNTER → 2021-02-01 | Outpatient (REF) ==
[~2021-02-01] MED LIST changes: +ACET-683 PO; +ASPI81CH48 PO; +CRAN450T4 PO; +DONE10TA90 PO; +HALO0.5H PO; +LIDO5DIS41 TOP; -LOSA50TA28 PO; +LOSA50TA88 PO; +MEMA10TA19 PO; +MILKSUS3 PO; +NITR100C2 PO; +NYST1POW9 TOP; +VITMTA PO
--- NOTE | 2021-02-02 16:27 | ECGEPIP ---
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
== END ==
LOC: SKLAB7 12:11
PROVIDERS: ATTEND Neuromusculoskeletal Medicine & OMM
DX: T50.995A Adverse effect of other drugs, medicaments and biological substances, initial encounter (principal)

== ENCOUNTER → 2021-02-07 | Outpatient (REF) ==
[2021-02-07 07:32] LABS: HEMATOCRIT 36.4 % (36.0-47.0); MEAN CORPUSCULAR HEMOGLOBIN 31.5 pg (27.0-33.0); MEAN CORPUSCULAR VOLUME 95.5 fl (80.0-96.0); PLATELET COUNT, AUTOMATED 251 10^3/uL (150-450); RED BLOOD COUNT 3.81 10^6/uL (4.00-5.40); WHITE BLOOD COUNT 10.4 10^3/uL (4.0-10.0)
[2021-02-07 08:04] LABS: THYROID STIMULATING HORMONE 1.74 uIU/ML (0.358-3.740)
== END ==
LOC: SKLAB7 07:00
PROVIDERS: ATTEND Internal Medicine
DX: I10 Essential (primary) hypertension (principal); E03.9 Hypothyroidism, unspecified; E55.9 Vitamin D deficiency, unspecified

== ENCOUNTER → 2021-02-09 | Outpatient (REF) | payer MEDICARE, OTHER, MEDICAID | LOC: SKLAB7 11:34 | PROVIDERS: ATTEND Internal Medicine | DX: Z20.822 Contact with and (suspected) exposure to COVID-19 (principal) ==

== ENCOUNTER → 2021-03-20 | Outpatient (REF) | payer MEDICARE, OTHER, MEDICAID | LOC: SKLAB7 10:44 | PROVIDERS: ATTEND Internal Medicine | DX: Z20.822 Contact with and (suspected) exposure to COVID-19 (principal) ==

== ENCOUNTER → 2021-03-22 | Outpatient (REF) | payer MEDICARE, OTHER, MEDICAID | LOC: SKLAB7 06:38 | PROVIDERS: ATTEND Internal Medicine | DX: Z20.822 Contact with and (suspected) exposure to COVID-19 (principal) ==

== ENCOUNTER → 2021-03-26 | Outpatient (REF) | payer MEDICARE, OTHER, MEDICAID | LOC: SKLAB7 07:00 | PROVIDERS: ATTEND Internal Medicine | DX: Z20.822 Contact with and (suspected) exposure to COVID-19 (principal) ==

== ENCOUNTER → 2021-03-27 | Outpatient (REF) | payer MEDICARE, OTHER, MEDICAID | LOC: SKLAB2 10:59 | PROVIDERS: ATTEND Internal Medicine | DX: U07.1 COVID-19 (principal); Z53.9 Procedure and treatment not carried out, unspecified reason ==

== ENCOUNTER 2021-03-28 15:03 | Emergency (ER) | payer MEDICARE, OTHER, MEDICAID ==
[~2021-03-28] VITALS: Ht 157.5 cm; Wt 100.0 kg
[~2021-03-28 15:03] MED LIST changes: -ACETAMINOPHEN TAB 650MG DOSE (2X325MG) PO ONE; -ALBUTEROL 90 MCG/ACT 8GM HFA INHALER INH PRN; -ALBUTEROL SULFATE 2.5 MG/0.5 ML INH NEB SOLN INH PRN; -BAMLANIVIMAB 700 MG, ETESEVIMAB 1,400 MG in NS 250 ML IV ONE; -EPINEPHrine INJ 1 MG/ML 1ML AMP IM PRN; -NS 1,000 ML IV SCH; -diphenhydrAMINE 50MG/ML VIAL (J1200) IV ONE; -diphenhydrAMINE 50MG/ML VIAL (J1200) IV PRN; -methylPREDNISolone 125MG 2ML VIAL IV PRN
[2021-03-28 15:42] VITALS: BP 203/89
--- NOTE | 2021-03-28 16:07 | REP ---
INDICATION: fall on anticoag. COMPARISON: Multiple the latest 01/09/2021 TECHNIQUE: 5 mm contiguous transaxial sections were obtained from the skull base to the cerebral convexities. FINDINGS: The ventricles and sulci are unchanged. There is ventricular and sulcal dilatation status quo. Deep white matter ischemic changes are again noted status quo. There is left temporal lobe encephalomalacia from an old infarctions status quo. There are no extra-axial fluid collections. There is no mass effect. There is no evidence of an acute intracranial hemorrhage. The orbital and petrous structures, cerebellopontine angles, and posterior fossa are unchanged The sella turcica, cavernous, and paracavernous structures are unchanged The visualized portions of the paranasal sinuses and mastoid air cells are unchanged. Images of the skull base show no gross abnormality. IMPRESSION: Stable appearing chronic changes. There is no evidence of an acute intracranial hemorrhagic or non hemorrhagic event. <Electronically signed by Jose Martin > 03/28/21 [id number]
--- NOTE | 2021-03-28 16:08 | REP ---
INDICATION: trauma. COMPARISON: None TECHNIQUE: AP pelvis two views left hip FINDINGS: There is mild to moderate bilateral asymmetric hip joint space narrowing left greater than right. There are chronic changes seen involving the sacroiliac joints. The imaged spine shows bilateral posterior fixation. There is no evidence of an acute fracture, dislocation, or subluxation. IMPRESSION: Chronic changes as described above. <Electronically signed by Jose Martin > 03/28/21 [id number]
--- NOTE | 2021-03-28 16:09 | REP ---
INDICATION: trauma. COMPARISON: Left ankle of 12/27/2020 TECHNIQUE: AP and lateral views FINDINGS: The bones are demineralized. Degenerative changes seen at the knee and ankle. There is a plantar calcaneal heel spur status quo. There is no evidence of an acute fracture or destructive osseous lesion. IMPRESSION: Chronic changes. <Electronically signed by Jose Martin > 03/28/21 4220
[2021-03-28] MEDS ORDERED: BOOSTRIX/ADACEL VACCINE (DIPHTH/PERTUSS/ACELL/TETANUS) 0.5ML SYR IM ONE (16:10)
--- NOTE | 2021-03-28 16:30 | REP ---
INDICATION: trauma. COMPARISON: CT angiogram neck 11/16/2020. TECHNIQUE: CT cervical spine performed in the axial plane, with sagittal and coronal reconstruction images performed. FINDINGS: There is no acute compression fracture. There is no prevertebral soft tissue swelling. There is minimal stable retrolisthesis of C5 likely due to posterior facet arthropathy. There is moderate spurring of C5 through C7 with moderate disc space narrowing and subchondral sclerosis at C5-6 and C6-7. There is diffuse narrowing, sclerosis and spurring at the posterior facet joints. Uncovertebral and facet spurring cause neural foraminal narrowing at multiple levels. There is normal cervical lordosis. There is no abnormal density in the spinal canal. IMPRESSION: No evidence of acute fracture or dislocation.Degenerative changes as above. <Electronically signed by Dean Michele > 03/28/21 6724
--- OUTSIDE RECORDS SUMMARY | 2021-03-28 16:45 | CCD ---
Author Author [facility] Organization 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 Name Role Phone Alicia Ruiz Unavailable PROBLEMS Type Condition ICD9-CM Code [id number] Code Onset Dates Condition S tatus W/U Status Risk SNOMED Code Notes Problem Cervical spondylosis with myelopathy M47.12 Act azam confirmed 24075373 Problem Vitamin D deficiency, unspecified E55.9 Active con firmed 35723739 Problem Gait disturbance R26.9 Active confirmed 223 08199 Problem Gastroesophageal reflux disease K21.9 Active confi rmed 631938863 Problem Neurogenic bladder N31.9 Active confirmed 3 84741346 Problem Osteoporosis M81.0 Active confirmed 6229714 6 Problem Essential (primary) hypertension I10 Active conf irmed 73057508 Problem Constipation K59.00 Active confirmed 8262304 8 Problem Incontinence of urine R32 Active confirmed 376546605 Problem Memory loss R41.3 Active confirmed 41268232 Problem Dementia F03.90 Active confirmed 95210387 Problem Hallucinations, unspecified R44.3 Active confirmed 6622314 Problem Glaucoma H40.9 Active confirmed 36155073 Problem Visual hallucinations R44.1 Active confirmed 07203070 Problem Hyperlipidemia E78.5 Active confirmed 89221 004 Problem Hypothyroidism (acquired) E03.9 Active confirmed 459055427 Problem Urinary incontinence, unspecified type R32 A ctive confirmed 758444191 Problem Atrophic vaginitis N95.2 Active confirmed 5 3381577 Problem Constipation, unspecified constipation type K59.00 Active confirmed 65367271 Problem Unspecified dementia without behavioral disturbance F03.90 Active confirmed 8934486381280 ALLERGIES Allergen (clinical drug ingredient) Drug/Non Drug Allergy do cumented on EMR Reaction Allergy Type Onset Date Status Codeine Phosphate([facility] Code:[address]-46) Anaphylaxis Drug Allergy Active dexamethasone Dexamethasone([facility] Code:[address]-01) anxiety Drug A llergy Active Narendra inhibitor (for allergies use only) COUGH Drug All ergy Active diclofenac Voltaren([facility] Code:[address]-73) Rash Drug Allergy Active ENCOUNTERS from 1935 to 2021-01-19 Encounter Location Date Provider Diagnosis [facility] [employer] [phone] [place] [address] Dec, Alicia Ruiz Essential (primary) hyperten codie I10 IMMUNIZATIONS Vaccine Route Administration Date Status COVID-19 dose #2 given elsewhere Unspecified Unknown Jul 17, 2020 Administered COVID-19 dose #1 given elsewhere Unspecified Unknown Jun 26, 2020 Administered Influenza 18 yrs & older Flublok Unknown Apr 14, 2020 Administered Influenza 18 yrs & older Flublok IM Intramuscular Mar 05, 2019 Administered Pneumococcal Adult 0.5mL Pneumovax 23 IM Intramuscular May 14 019 Administered SOCIAL HISTORY Tobacco Use: Social History Observation Description Date Details (start date - stop date) Never Smoker Sex Assigned At : Social History Observation Description Sex Assigned At Unknown Education: Question Answer Notes Level of Education: Finished High School Audit Question Answer Notes Total Score: 0 Interpretation: Alcohol Education Language: Question Answer Notes Languages spoken: Qatari Advent: Question Answer Notes Advent No yazidi beliefs that would impact health care. Sexual Hx: Question Answer Notes Had sex in the last 12 months (vaginal, oral, or anal)? No Have you ever had an STD? No Drug and Alcohol Question Answer Notes Total Score: 0 Interpretation: No problems reported Alcohol Screening: Question Answer Notes Did you have a drink containing alcohol in the past year? No Points 0 Interpretation Negative Tobacco Use: Question Answer Notes Are you a: never smoker REASON FOR REFERRAL No Information VITAL SIGNS No information MEDICATIONS Medication SIG (Take, Route, Frequency, Duration) Notes Start Da te End Date Status Caltrate 600+D 600-800 MG-UNIT 1 tablet with a meal Or ally Once a day for 30 day(s) Active Nystatin 492489 UNIT/GM 1 application to bilateral g roin affected area Externally Twice a day as needed for 30 day(s) September, Active Fiber Adult Gummies 2 GM 1 tab Orally once daily Active Vitamin D 1000 UNIT 1 capsule Orally Once a day for 30 day(s) Active Debrox 6.5 % 5 drops into affected ear Otic Twice a d ay for 5 day(s) 5 days prior to next appt in Jul, Active MiraLax - as directed Orally twice a week Active Haloperidol 0.5 MG 1 tablet Orally Once a day a s needed for agitation for 30 day(s) Dec, Active Aspirin 81 81 MG 1 tablet Orally Once a day for 30 day(s) Active HM Lidocaine Patch 4 % as directed Externally Daily as needed for 30 Days Active Tylenol 325 MG 2 tablet as needed Orally b reak through pain along with BID dose for 30 Days Dec, Active Latanoprost 0.005 % 1 drop Ophthalmic to both eyes Once a day for 9 0 day(s) Active Levothyroxine Sodium 50 MCG 1 tablet on an empty stoma ch in the morning Orally Once a day for 30 Days Active Losartan Potassium 50 MG 1 tablet Orally Once a day Active Memantine HCl 10 MG 1 tablet Orally Twice a day Active Haloperidol 0.5 MG 1 tablet Orally Once a day for 30 Days Aug, Active Milk of Magnesia 400 MG/5ML 30 ml as needed Orally Daily for 30 Days Active Aricept 10 MG 1 tablet at bedtime Orally Once a day Dec Active Nitrofurantoin Macrocrystal 50 MG 1 capsule at bedtime with food or milk Orally weekly every friday for 30 day(s) Mar, Active Refresh Plus 0.5 % 1 drop into affected eye as needed Ophthalmic Three times a day for 30 Days Active Keflex 250 MG 2 capsule Orally bid for 5 day(s) Nov, Active DULoxetine HCl 30 MG 1 capsule Orally Once a day for 30 Days Active PreserVision AREDS 1 1 cap Orally Daily for 30 days Active amLODIPine Besylate 5 MG 1 tablet Orally Once a day for 90 day(s) Active Cranberry 450 MG 1 tablet with meals Orally Twice a day for 30 d ay(s) Mar, Active Menthol (Topical Analgesic) 3.5 % 1 application to aff ected neck area as needed Externally bid for 30 Days Dec, Activ e Lidocaine 4 % as directed Externally Once a day for 30 Days Active Daily Multivitamin 1 1 cap Orally Daily for 30 Days Jun Active Cyanocobalamin 1000 MCG 1 tablet Orally Daily for 30 days Active Debrox 6.5 % 5 drops into affected ear Otic Twice a day for 5 day(s) Nov, Active Dulcolax [place] Stool Softener 100 MG 1 capsule Orally once daily for 30 day(s) Active Rosuvastatin Calcium 10 MG 1 tablet Orally before bedtime for 90 Days Active Brimonidine Tartrate 0.2 % 1 drop into both eyes Ophth almic twice daily for 30 Days September, Active Calcium-Vitamin D 600-400 MG-UNIT 1 tablet with a meal Orally Once a day for 90 day(s) Jul, Active Combigan 0.2-0.5 % 1 drop into affected eye Ophthalmic Twice a day Active PROCEDURES No Information RESULTS No Results REASON FOR VISIT amlodipine MEDICAL (GENERAL) HISTORY Type Description Date Medical History Hypertension Medical History Hyperlipidemia Medical History Open angle Glaucoma- Dr. Vicente Weiss Medical History osteoporosis- Medical History Ostoarthritis involving multiple joints Medical History Age related macular degenration- Dr. Janis Weiss Medical History neurogenic bladder/urinary i ncontinence- 08/2012. S/p spinal stimulator- Interstim [facility] [facility] [place] Medical History GERD Medical History spinal stenosis of lumbar region Medical History constipation Medical History scoliosis Medical History Hx of Stroke Medical History Hypothyroidism Medical History short term memory loss c TIA in MD in ~2 005 Surgical History D&C fibriod tumors removed 1978 Surgical History hysterectomy 1979 Surgical History left breast biopsy 1984 Surgical History retinal detachment right eye 1989 Surgical History cataract surgery both eyes 1991&1993 Surgical History bladder suspension 1996 Surgical History oculoplasty left eye 2001 Surgical History colonscopy 2005 Surgical History rotator cuff repair 2005 Surgical History cystoscopy 2007 Surgical History upper endoscopy 2009 Surgical History laminectomy/spinal fusion(S1-L4) 2010 Surgical History Oculoplasty both eyes 2009 Surgical History Biopsy under right breast 2010 Surgical History Laminectomy/Spinal Infusion(L4-T9) 2012 Surgical History Cystoscopy 2012 Surgical History Laminectomy/Spinal Infusion(T9-T4) 2013 Surgical History Stroke [address] scan 2014 Surgical History Bilateral Sacral Nerve Stimu lator Insertion turned off Dr Santana 09/16/182017 Hospitalization History as above Hospitalization History hypertension 10/2019 Goals Section No Information Health Concerns No Information MEDICAL EQUIPMENT No Information MENTAL STATUS No Information FUNCTIONAL STATUS No Information ASSESSMENTS Encounter Date Diagnosis Assessment Notes Treatment Notes Treatm ent Clinical Notes Dec, Essential (primary) hypertension (ICD-10 - I10) PLAN OF TREATMENT Medication Medication Name Sig Start Date Stop Date Aricept 10 MG 1 tablet at bedtime Orally Once a day Dec, Rosuvastatin Calcium 10 MG 1 tablet Orally before bedtime for 90 Days Keflex 250 MG 2 capsule Orally bid for 5 day(s) Nov, amLODIPine Besylate 5 MG 1 tablet Orally Once a day for 90 day(s ) Memantine HCl 10 MG 1 tablet Orally Twice a day Lidocaine 4 % as directed Externally Once a day for 30 Days Haloperidol 0.5 MG 1 tablet Orally Once a day a s needed for agitation for 30 day(s) Dec, Milk of Magnesia 400 MG/5ML 30 ml as needed Orally Daily for 30 Days Fiber Adult Gummies 2 GM 1 tab Orally once daily MiraLax - as directed Orally twice a week Vitamin D 1000 UNIT 1 capsule Orally Once a day for 30 day(s) Cyanocobalamin 1000 MCG 1 tablet Orally Daily for 30 days Levothyroxine Sodium 50 MCG 1 tablet on an empty stoma ch in the morning Orally Once a day for 30 Days Tylenol 325 MG 2 tablet as needed Orally b reak through pain along with BID dose for 30 Days Dec, Caltrate 600+D 600-800 MG-UNIT 1 tablet with a meal Or ally Once a day for 30 day(s) DULoxetine HCl 30 MG 1 capsule Orally Once a day for 30 Days Lidocaine Patch 4 % as directed Externally Daily as needed fo r 30 Days Aspirin 81 81 MG 1 tablet Orally Once a day for 30 day(s) Menthol (Topical Analgesic) 3.5 % 1 application to aff ected neck area as needed Externally bid for 30 Days Dec, Losartan Potassium 50 MG 1 tablet Orally Once a day Haloperidol 0.5 MG 1 tablet Orally Once a day for 30 Days Aug Next Appt Details Provider Name:Alicia Ruiz, 06-27 03:00:00 PM, [address] [facility], , [place], [address], Insurance Providers Payer Name Payer Address Payer Phone Insured Name Patient Relati onship to Insured Coverage Start Date Coverage End Date MEDICAID [employer] [address] [facility] [id number] [place] self MED[place]ARE Part A and B [address] [facility] [id number] [place] self FOR LIFE [address] [facility] [phone] [place] self
--- OUTSIDE RECORDS SUMMARY | 2021-03-28 16:45 | CCD ---
Author Author [facility] Organization [facility] Address Unknown Phone Unavailable Care Team Providers Care Plant Accountant Name Role Phone Alicia Ruiz Unavailable PROBLEMS Type Condition ICD9-CM Code [id number] Code Onset Dates Condition S tatus W/U Status Risk SNOMED Code Notes Problem Cervical spondylosis with myelopathy M47.12 Act azam confirmed 96818105 Problem Vitamin D deficiency, unspecified E55.9 Active con firmed 84775266 Problem Gait disturbance R26.9 Active confirmed 223 04409 Problem Gastroesophageal reflux disease K21.9 Active confi rmed 049340233 Problem Neurogenic bladder N31.9 Active confirmed 3 28294005 Problem Osteoporosis M81.0 Active confirmed 8932207 6 Problem Essential (primary) hypertension I10 Active conf irmed 87071603 Problem Constipation K59.00 Active confirmed 8123412 8 Problem Incontinence of urine R32 Active confirmed 038927939 Problem Memory loss R41.3 Active confirmed 49051582 Problem Dementia F03.90 Active confirmed 02292904 Problem Hallucinations, unspecified R44.3 Active confirmed 8236540 Problem Glaucoma H40.9 Active confirmed 66997539 Problem Visual hallucinations R44.1 Active confirmed 92363156 Problem Hyperlipidemia E78.5 Active confirmed 81660 004 Problem Hypothyroidism (acquired) E03.9 Active confirmed 875931234 Problem Urinary incontinence, unspecified type R32 A ctive confirmed 179748536 Problem Atrophic vaginitis N95.2 Active confirmed 5 2058764 Problem Constipation, unspecified constipation type K59.00 Active confirmed 36228760 Problem Unspecified dementia without behavioral disturbance F03.90 Active confirmed 0891353603721 ALLERGIES Allergen (clinical drug ingredient) Drug/Non Drug Allergy do cumented on EMR Reaction Allergy Type Onset Date Status Codeine Phosphate([facility] Code:[address]-61) Anaphylaxis Drug Allergy Active dexamethasone Dexamethasone([facility] Code:[address]-93) anxiety Drug A llergy Active Narendra inhibitor (for allergies use only) COUGH Drug All ergy Active diclofenac Voltaren([facility] Code:[address]-59) Rash Drug Allergy Active ENCOUNTERS from 1936 to 2021-01-10 Encounter Location Date Provider Diagnosis [facility] [phone] [place] [address] Dec, Alicia Ruiz Hyperlipidemia E78.5 IMMUNIZATIONS Vaccine Route Administration Date Status COVID-19 [...] Education Language: Question Answer Notes Languages spoken: Citizen Of [place] Faith: Question Answer Notes Faith No spiritism beliefs that would impact health care. Sexual [...] Notes Start Da te End Date Status Tylenol 325 MG 2 tablet as needed Orally b reak through pain along with BID dose for 30 Days Dec, Active Latanoprost 0.005 % 1 drop Ophthalmic to both eyes Once a day for 9 0 day(s) Active Fiber Adult Gummies 2 GM 1 tab Orally once daily Active Caltrate 600+D 600-800 MG-UNIT 1 tablet with a meal Or ally Once a day for 30 day(s) Active Nystatin 076828 UNIT/GM 1 application to bilateral g roin affected area Externally Twice a day as needed for 30 day(s) September, Active MiraLax - as directed Orally twice a week Active Memantine HCl 10 MG 1 tablet Orally Twice a day Active amLODIPine Besylate 5 MG 1 tablet Orally Once a day for 30 day(s) Active HM Lidocaine Patch 4 % as directed Externally Daily as needed for 30 Days Active Haloperidol 0.5 MG 1 tablet Orally Once a day a s needed for agitation for 30 day(s) Dec, Active Aspirin 81 81 MG 1 tablet Orally Once a day for 30 day(s) Active Levothyroxine Sodium 50 MCG 1 tablet on an empty stoma ch in the morning Orally Once a day for 30 Days Active Losartan Potassium 50 MG 1 tablet Orally Once a day Active Cranberry 450 MG 1 tablet with meals Orally Twice a day for 30 d ay(s) Mar, Active Haloperidol 0.5 MG 1 tablet Orally [...] times a day for 30 Days Active Cyanocobalamin 1000 MCG 1 tablet Orally Daily for 30 days Active Menthol (Topical Analgesic) 3.5 % 1 application to aff ected neck area as needed Externally bid for 30 Days Dec, Activ e PreserVision AREDS 1 1 cap Orally Daily for 30 days Active Keflex 250 MG 2 capsule Orally bid for 5 day(s) Nov, Active DULoxetine HCl 30 MG 1 capsule Orally Once a day for 30 Days Active Debrox 6.5 % 5 drops into affected ear Otic Twice a d ay for 5 day(s) 5 days prior to next appt in Jul, Active Lidocaine 4 % as directed Externally Once a day for 30 Days Active Daily Multivitamin 1 1 cap Orally Daily for 30 Days Jun Active Vitamin D 1000 UNIT 1 capsule Orally Once a day for 30 day(s) Active Debrox 6.5 % 5 drops into affected ear Otic Twice a day for 5 day(s) Nov, Active Dulcolax [place] Stool Softener 100 MG 1 capsule Orally [...] Information RESULTS No Results REASON FOR VISIT refill MEDICAL (GENERAL) HISTORY Type Description Date Medical History Hypertension Medical History Hyperlipidemia Medical History Open angle Glaucoma- Dr. Vicente Weiss Medical History osteoporosis- Medical History Ostoarthritis involving multiple joints Medical History Age related macular degenration- Dr. Janis Weiss Medical History neurogenic bladder/urinary i ncontinence- 08/2012. S/p spinal stimulator- Interstim implant/- 10/[address] Zonia Nelson [place]. Concha Santana- [facility] Medical History GERD Medical History spinal [...] Treatment Notes Treatm ent Clinical Notes Dec, Hyperlipidemia (ICD-10 - E78.5) PLAN OF TREATMENT Medication Medication Name Sig Start Date Stop Date Aricept 10 MG 1 tablet at bedtime Orally Once a day Dec, Rosuvastatin Calcium 10 MG 1 tablet Orally before bedtime for 90 Days Cyanocobalamin 1000 MCG 1 tablet Orally Daily for 30 days Keflex 250 MG 2 capsule Orally bid for 5 day(s) Nov, DULoxetine HCl 30 MG 1 capsule Orally Once a day for 30 Days Lidocaine 4 % as directed Externally Once a day for 30 Days Memantine HCl 10 MG 1 tablet Orally Twice a day Milk of Magnesia 400 MG/5ML 30 ml as needed Orally Daily for 30 Days Fiber Adult Gummies 2 GM 1 tab Orally once daily MiraLax - as directed Orally twice a week Caltrate 600+D 600-800 MG-UNIT 1 tablet with a meal Or ally Once a day for 30 day(s) Vitamin D 1000 UNIT 1 capsule Orally Once a day for 30 day(s) Levothyroxine Sodium 50 MCG 1 tablet on an empty stoma ch in the morning Orally Once a day for 30 Days Haloperidol 0.5 MG 1 tablet Orally Once a day a s needed for agitation for 30 day(s) Dec, Tylenol 325 MG 2 tablet as needed Orally b reak through pain along with BID dose for 30 Days Dec, Menthol (Topical Analgesic) 3.5 % 1 application to aff ected neck area as needed Externally bid for 30 Days Dec, HM Lidocaine Patch 4 % as directed Externally Daily as needed fo r 30 Days amLODIPine Besylate 5 MG 1 tablet Orally Once a day for 30 day(s ) Aspirin 81 81 MG 1 tablet Orally Once a day for 30 day(s) Losartan Potassium 50 MG 1 tablet Orally Once a day Haloperidol 0.5 MG 1 tablet Orally Once a day for 30 Days Aug Next Appt Details Provider Name:Alicia Sutherlandhakeem, 06-27 03:00:00 PM, [address] [facility], , [place], [address], Insurance Providers Payer Name Payer Address Payer Phone Insured Name Patient Relati onship to Insured Coverage Start Date Coverage End Date FOR LIFE [address] [facility] [phone] [place] MED[place]ID [facility] [address] [facility] [id number] [place] self MEDICARE Part A and B [address] [facility] [id number] [place] self
--- OUTSIDE RECORDS SUMMARY | 2021-03-28 16:47 | CCD ---
Author Author [facility] Organization [facility] Address Unknown Phone Unavailable Care Team Providers Care Metal Roaster Name Role Phone Alicia Ruiz Unavailable PROBLEMS Type Condition ICD9-CM Code QVW98-EG Code Onset Dates Condition S tatus W/U Status Risk SNOMED Code Notes Problem Cervical spondylosis with myelopathy M47.12 Act azam confirmed 15011737 Problem Vitamin D deficiency, unspecified E55.9 Active con firmed 70926513 Problem Gait disturbance R26.9 Active confirmed 223 06890 Problem Gastroesophageal reflux disease K21.9 Active confi rmed 217987367 Problem Neurogenic bladder N31.9 Active confirmed 3 17566880 Problem Osteoporosis M81.0 Active confirmed 0387775 6 Problem Essential (primary) hypertension I10 Active conf irmed 64450639 Problem Constipation K59.00 Active confirmed 6786444 8 Problem Incontinence of urine R32 Active confirmed 924552135 Problem Memory loss R41.3 Active confirmed 80246706 Problem Dementia F03.90 Active confirmed 17222797 Problem Hallucinations, unspecified R44.3 Active confirmed 4785703 Problem Glaucoma H40.9 Active confirmed 63557676 Problem Visual hallucinations R44.1 Active confirmed 11932312 Problem Hyperlipidemia E78.5 Active confirmed 69641 004 Problem Hypothyroidism (acquired) E03.9 Active confirmed 331061080 Problem Urinary incontinence, unspecified type R32 A ctive confirmed 414965683 Problem Atrophic vaginitis N95.2 Active confirmed 5 2493595 Problem Constipation, unspecified constipation type K59.00 Active confirmed 64570042 Problem Unspecified dementia without behavioral disturbance F03.90 Active confirmed [id number] ALLERGIES Allergen (clinical drug ingredient) Drug/Non Drug Allergy do cumented on EMR Reaction Allergy Type Onset Date Status Codeine Phosphate([facility] Code:[address]-50) Anaphylaxis Drug Allergy Active dexamethasone Dexamethasone([facility] Code:[address]-44) anxiety Drug A llergy Active Narendra inhibitor (for allergies use only) COUGH Drug All ergy Active diclofenac Voltaren([facility] Code:[address]-00) Rash Drug Allergy Active ENCOUNTERS from 1936 to 2021-01-02 Encounter Location Date Provider Diagnosis [place] [id number] [facility] [phone] [place] [address] Nov, Alicia Ruiz Essential (primary) hyperten codie I10 ; Memory loss R41.3 ; Hyperlipidemia E78.5 ; Neurogenic bladder N31.9 ; Hypothyroidism (acquired) E03.9 ; Cervical spondylosis with myelopathy M47.12 ; Vitamin D deficiency, unspecified E55.9 ; Osteoporosis M81.0 ; Spinal stenosis of lumbar region at multiple levels M48.061 ; Gait disturbance R26.9 ; Impaired glucose metabolism R73.09 ; Incontinence of urine R32 ; Constipation, unspecified constipation type K59.00 ; Left ankle swelling M25.472 and Hallucinations, unspecified R44.3 IMMUNIZATIONS Vaccine Route Administration Date Status COVID-19 [...] Education Language: Question Answer Notes Languages spoken: Azerbaijani Sabianism: Question Answer Notes Sabianism No hoahaoism beliefs that would impact health care. Sexual [...] REASON FOR REFERRAL No Information VITAL SIGNS Weight 191.8 lbs Nov, Height 60.5 in Nov, BMI 36.84 kg/m2 Nov, Heart Rate 82 /min Nov, Respiratory Rate 18 /min Nov, Temperature 97.5 degrees Fahrenheit Nov, Oximetry 95% Nov, Blood pressure systolic 130 mm Hg Nov, Blood pressure diastolic 80 mm Hg Nov, MEDICATIONS Medication SIG (Take, Route, Frequency, Duration) Notes Start Da te End Date Status Cranberry 450 MG 1 tablet with meals Orally Twice a day for 30 d ay(s) Mar, Active Haloperidol 0.5 MG 1 tablet Orally Once a day for 30 Days Aug, Active Memantine HCl 10 MG 1 tablet Orally Twice a day Active amLODIPine Besylate 5 MG 1 tablet Orally Once a day for 30 day(s) Active HM Lidocaine Patch 4 % as directed Externally Daily as needed for 30 Days Active Rosuvastatin Calcium 10 MG 1 tablet Orally before bedtime for 30 Days Active Milk of Magnesia 400 MG/5ML 30 ml as needed Orally Daily for 30 Days Active DULoxetine HCl 30 MG 1 capsule Orally Once a day for 30 Days Active Losartan Potassium 50 MG 1 tablet Orally Once a day Active MiraLax - as directed Orally twice a week Active Debrox 6.5 % 5 drops into affected ear Otic Twice a d ay for 5 day(s) 5 days prior to next appt in Jul, Active Lidocaine 4 % as directed Externally Once a day for 30 Days Active Fiber Adult Gummies 2 GM 1 tab Orally once daily Active Keflex 250 MG 2 capsule Orally bid for 5 day(s) Nov, Active Aricept 10 MG 1 tablet at bedtime Orally Once a day Dec Active Daily Multivitamin 1 1 cap Orally Daily for 30 Days Jun Active Vitamin D 1000 UNIT 1 capsule Orally Once a day for 30 day(s) Active Latanoprost 0.005 % 1 drop Ophthalmic to both eyes Once a day for 9 0 day(s) Active Debrox 6.5 % 5 drops into affected ear Otic Twice a day for 5 day(s) Nov, Active Cyanocobalamin 1000 MCG 1 tablet Orally Daily for 30 days Active Nystatin 106861 UNIT/GM 1 application to bilateral g roin affected area Externally Twice a day as needed for 30 day(s) September, Active Aspirin 81 81 MG 1 tablet Orally Once a day for 30 day(s) Active Levothyroxine Sodium 50 MCG 1 tablet on an empty stoma ch in the morning Orally Once a day for 30 Days Active PreserVision AREDS 1 1 cap Orally Daily for 30 days Active Caltrate 600+D 600-800 MG-UNIT 1 tablet with a meal Or ally Once a day for 30 day(s) Active Nitrofurantoin Macrocrystal 50 MG 1 capsule at bedtime with food or milk Orally weekly every friday for 30 day(s) Mar, Active Refresh Plus 0.5 % 1 drop into affected eye as needed Ophthalmic Three times a day for 30 Days Active Brimonidine Tartrate 0.2 % 1 drop into both eyes Ophth almic twice daily for 30 Days September, Active Dulcolax [place] Stool Softener 100 MG 1 capsule Orally once daily for 30 day(s) Active Calcium-Vitamin D 600-400 MG-UNIT 1 tablet with a meal Orally Once a day for 90 day(s) Jul, Active Combigan 0.2-0.5 % 1 drop into affected eye Ophthalmic Twice a day Active PROCEDURES No Information RESULTS Component Value Reference Range [facility] Ankle, complete Reviewed date:12/27/2020 16:55:28 Interpretation: Performing Lab:[facility] [address] ,[place] [address] NT-PRO BNP Reviewed date:12/29/2020 09:50:11 Interpretation: Performing Lab:[facility] LABORATORY [address] [place] [address] , ,[place] [address] NT-PRO BNP 88 <450 CBC with Differential Reviewed date:12/29/2020 09:50:07 Interpretation: Performing Lab:[facility] LABORATORY [address] [place] [address] , ,[place] [address] WHITE BLOOD COUNT 9.1 4.0-10.0 RED BLOOD COUNT 3.99 4.00-5.40 HEMOGLOBIN 12.5 12.0-15.5 HEMATOCRIT 38.1 36.0-47.0 MEAN CORPUSCULAR VOLUME 95.5 80.0-96.0 MEAN CORPUSCULAR HEMOGLOBIN 31.3 27.0-33.0 MEAN CORPUSCULAR HGB CONC 32.8 32.0-36.5 RED CELL DISTRIBUTION WIDTH 13.9 11.5-14.5 PLATELET COUNT, AUTOMATED 307 150-450 NEUTROPHILS % 41.3 36.0-66.0 LYMPH % 47.6 24.0-44.0 MONO % 8.6 2.0-8.0 EOS % 1.9 0.0-3.0 BASO % 0.3 0.0-1.0 NEUTROPHILS # 3.7 1.5-8.5 LYMPH # 4.3 1.5-5.0 MONO # 0.8 0.0-0.8 EOS # 0.2 0.0-0.5 BASO # 0.0 0.0-0.2 REASON FOR VISIT november f/u MEDICAL (GENERAL) HISTORY Type Description Date Medical History Hypertension Medical History Hyperlipidemia Medical History Open angle Glaucoma- Dr. Vicente Weiss Medical History osteoporosis- Medical History Ostoarthritis involving multiple joints Medical History Age related macular degenration- Dr. Janis Weiss Medical History neurogenic bladder/urinary i ncontinence- 08/2012. S/p spinal stimulator- Interstim implant/- 10/[address] Brar [place], [place]. Concha Santana- jones women Medical History [...] rotator cuff repair 2005 Surgical History cystoscopy 2006 Surgical History upper endoscopy 2008 Surgical History laminectomy/spinal fusion(S1-L4) 2009 Surgical History Oculoplasty both eyes 2009 Surgical History Biopsy under right breast 2010 Surgical History Laminectomy/Spinal Infusion(L4-T9) 2011 Surgical History Cystoscopy 2011 Surgical History Laminectomy/Spinal Infusion(T9-T4) 2012 Surgical History Stroke [address] scan 2013 Surgical History Bilateral Sacral Nerve Stimu lator Insertion turned off Dr Santana 09/16/182017 Hospitalization History as above Hospitalization History hypertension 10/2019 Goals Section No Information Health Concerns No Information MEDICAL EQUIPMENT No Information MENTAL STATUS No Information FUNCTIONAL STATUS No Information ASSESSMENTS Encounter Date Diagnosis Assessment Notes Treatment Notes Treatm ent Clinical Notes Nov, Essential (primary) hypertension (ICD-10 - I10) continue current regimen 11/2020 0.48, 10, K 3.9, Mg 2.1 03/2020 0.5, 16, K 4.3 11/2019 add amlodipoine 5mg 12/2018 0.4, 10, K 3.9, Mg 2.2 Nov, Memory loss (ICD-10 - R41.3) Short term memory loss c intermittent Sundowning neurology increased the dose Memantin 10mg bid. aricept 10mg qam 03/2020 929 12/2018 B12 297, Folate 757 Nov, Hyperlipidemia (ICD-10 - E78.5) continue current regimen 11/2020 59, 90, 75 03/2020 61,65,118 12/2018 70, 72, 94 08/2018 75, 76, 90 Nov, Neurogenic bladder (ICD-10 - N31.9) 11/2019 2 Urien cults. No growth on macrobid 50mg qhs prophylaxis Had tried Detrol LA for > 12 weeks and failed Frequent UTI and confusion secondary to infection in last 3 months. insurance denied Mirabegron Was effective prior Had been on oxybutynin and failed prior Reviewed prior urology records Dr. Brar/ prior PCP [facility] Reviewed prior records from Dr. Bullard been treated with several trial of meds since 07/2008. Been on Mirabegron ER since 06/2017 started by urologist effective for Refractory chronic urge incontinence, Neurogenic bladder Insurance denies Mirabegron. Will re-appeal given refractory sxs/frequent infection despite Interstim implant +/- effectiveness Nov, Hypothyroidism (acquired) (ICD-10 - E03.9) continue current regimen 11/2020 2.67, 1.15 03/2020 2.8, 1.04 11/2019 1.820 12/2018 3.3, 1.03 Nov, Cervical spondylosis with myelopathy (ICD-10 - M 47.12) Rehab stopped gabapentin stop volteran gel (allergy: Rash) add lidocaine patch Physical therapy for refractory cerrvical pain radicular to shoulder blade Nov, Vitamin D deficiency, unspecified (ICD-10 - E55. 9) Vit D 1000mg 03/2020 39, 8.9, 67 12/2018 31, 9.0, 98 Nov, Osteoporosis (ICD-10 - M81.0) Been started on Alendronate since 10/2011 hold Alendronate No dexa available to review Nov, Spinal stenosis of lumbar re gion at multiple levels (ICD-10 - M48.061) As per Cervical spondylosis Nov, Gait disturbance (ICD-10 - R26.9) wheel chair bound. few steps with walker continue PT/OT Nov, Impaired glucose metabolism (ICD-10 - R73.09) Encouraged diet/behavior modification 11/2020 5.5 03/2020 5.6 12/2018 6.4, insulin 18 08/2018 A1c 5.8 Nov, Incontinence of urine (ICD-10 - R32) As per neurogenic bladder. Reviewed prior records from Dr. Bullard been treated with several trial of meds since 07/2008. Nov, Constipation, unspecified constipation type (ICD -10 - K59.00) continue current regimen Nov, Left ankle swelling (ICD-10 - M25.472) obtain x-ray /labs to r/o favor Erysipelas Empiric Rx keflex Nov, Hallucinations, unspecified (ICD-10 - R44.3) given patient's increased lethargy/weight loss decrease dose to qd PLAN OF TREATMENT Medication Medication Name Sig Start Date Stop Date Keflex 250 MG 2 capsule Orally bid for 5 day(s) Nov, Aricept 10 MG 1 tablet at bedtime Orally Once a day Dec, Vitamin D 1000 UNIT 1 capsule Orally Once a day for 30 day(s) Cyanocobalamin 1000 MCG 1 tablet Orally Daily for 30 days amLODIPine Besylate 5 MG 1 tablet Orally Once a day for 30 day(s ) Levothyroxine Sodium 50 MCG 1 tablet on an empty stoma ch in the morning Orally Once a day for 30 Days Aspirin 81 81 MG 1 tablet Orally Once a day for 30 day(s) Fiber Adult Gummies 2 GM 1 tab Orally once daily HM Lidocaine Patch 4 % as directed Externally Daily as needed fo r 30 Days Memantine HCl 10 MG 1 tablet Orally Twice a day Caltrate 600+D 600-800 MG-UNIT 1 tablet with a meal Or ally Once a day for 30 day(s) Rosuvastatin Calcium 10 MG 1 tablet Orally before bedtime for 30 Days DULoxetine HCl 30 MG 1 capsule Orally Once a day for 30 Days Haloperidol 0.5 MG 1 tablet Orally Once a day for 30 Days Aug Milk of Magnesia 400 MG/5ML 30 ml as needed Orally Daily for 30 Days Losartan Potassium 50 MG 1 tablet Orally Once a day MiraLax - as directed Orally twice a week Lidocaine 4 % as directed Externally Once a day for 30 Days Treatment Notes Assessment Notes Clinical Notes Left ankle swelling obtain x-ray /labs t o r/ofavor ErysipelasEmpiric Rx keflex Essential (primary) hypertension continu e current regimen11/2020 0.48, 10, K 3.9, Mg 2.110 0.5, 16, K 4. add amlodipoine 5mg12/2018 0.4, 10, K 3.9, Mg 2.2 Constipation, unspecified constipation type continue current regimen Memory loss Short term memory lo ss c intermittent Sundowningneurology increased the dose Memantin 10mg bid. aricept 10mg qam10 9298 B12 297, Folate 757 Hyperlipidemia continue current reg imen11/2020 59, 90, 7510 61,65,11882019 70, 72, 944/2019 75, 76, 90 Hallucinations, unspecified given patien t's increased lethargy/weight loss decrease dose to qd Neurogenic bladder 11/2019 2 Urien cults . No growth on macrobid 50mg qhs prophylaxisHad tried Detrol LA for > 12 weeks and failed Frequent UTI and confusion secondary to infection in last 3 months.insurance denied Mirabegron Was effective priorHad been on oxybutynin and failed priorReviewed prior urology records Dr[facility] Brar/ [facility] been treated with several trial of meds since 07/2008.Been on Mirabegron ER since 06/2017 started by urologist effective for Refractory chronic urge incontinence, Neurogenic bladderInsurance denies Chintan abegron. Will re-appeal given refractory sxs/frequent infection despite Interstim implant +/- effectiveness Hypothyroidism (acquired) continue curre nt regimen11/2020 2.67, 1.1510/2019 2.8, 1.046/2019 1.8208/2018 3.3, 1.03 Cervical spondylosis with myelopathy Андрей ab stopped gabapentinstop volteran gel (allergy: Rash) add lidocaine patchPhysical therapy for refractory cerrvical pain radicular to shoulder blade Vitamin D deficiency, unspecified Vit D 3019ic79/2020 39, 8.9, 678 31, 9.0, 98 Incontinence of urine As per neurogenic bladder.Reviewed prior records from Dr. Bullard been treated with several trial of meds since 07/2008. Impaired glucose metabolism Encouraged d iet/behavior modification11/2020 5.510/2019 5. 6.4, insulin 184 A1c 5.8 Osteoporosis Been started on Abhilash dronate since 10/2011 hold AlendronateNo dexa available to review Spinal stenosis of lumbar region at multiple levels As per Cervical spondylosis Gait disturbance wheel chair bound. f ew steps with walkercontinue PT/OT Future Test Test Name Order Date CBC with Differential [id number] NT-PRO BNP [id number] Next Appt Details 6 Months Reason: Provider Name:Alicia Ruiz, 2021-06-27 03:00:00 PM, [address] [facility], , [place], [address], Insurance Providers Payer Name Payer Address Payer Phone Insured Name Patient Relati onship to Insured Coverage Start Date Coverage End Date MEDICAID [employer] [address] [facility] [id number] [employer] self MEDICARE Part A and B [address] [facility] [id number] [employer] self FOR LIFE [address] [facility] [address] [employer] self
--- OUTSIDE RECORDS SUMMARY | 2021-03-28 16:47 | CCD ---
Author Author [facility] Organization [facility] Address Unknown Phone Unavailable Care Team Providers Care Laborer Syrup Machine Name Role Phone Alicia Ruiz Unavailable PROBLEMS Type Condition ICD9-CM Code LKT40-QL Code Onset Dates Condition S tatus W/U Status Risk SNOMED Code Notes Problem Cervical spondylosis with myelopathy M47.12 Act azam confirmed 03465720 Problem Vitamin D deficiency, unspecified E55.9 Active con firmed 96696640 Problem Gait disturbance R26.9 Active confirmed 223 58717 Problem Gastroesophageal reflux disease K21.9 Active confi rmed 621741582 Problem Neurogenic bladder N31.9 Active confirmed 3 35909024 Problem Osteoporosis M81.0 Active confirmed 7859737 6 Problem Essential (primary) hypertension I10 Active conf irmed 29434535 Problem Constipation K59.00 Active confirmed 2867225 8 Problem Incontinence of urine R32 Active confirmed 365790862 Problem Memory loss R41.3 Active confirmed 19707656 Problem Dementia F03.90 Active confirmed 71996253 Problem Hallucinations, unspecified R44.3 Active confirmed 3452993 Problem Glaucoma H40.9 Active confirmed 37728106 Problem Visual hallucinations R44.1 Active confirmed 19375610 Problem Hyperlipidemia E78.5 Active confirmed 54125 004 Problem Hypothyroidism (acquired) E03.9 Active confirmed 804994832 Problem Urinary incontinence, unspecified type R32 A ctive confirmed 249209397 Problem Atrophic vaginitis N95.2 Active confirmed 5 8103376 Problem Constipation, unspecified constipation type K59.00 Active confirmed 62355206 Problem Unspecified dementia without behavioral disturbance F03.90 Active confirmed 4760737984203 ALLERGIES Allergen (clinical drug ingredient) Drug/Non Drug Allergy do cumented on EMR Reaction Allergy Type Onset Date Status Codeine Phosphate([facility] Code:[address]-82) Anaphylaxis Drug Allergy Active dexamethasone Dexamethasone([facility] Code:[address]-18) anxiety Drug A llergy Active Narendra inhibitor (for allergies use only) COUGH Drug All ergy Active diclofenac Voltaren([facility] Code:[address]-42) Rash Drug Allergy Active ENCOUNTERS from 1935 to 2021-01-09 Encounter Location Date Provider [facility] [phone] [place] [address] Dec, Alicia Sutherlandhakeem IMMUNIZATIONS Vaccine Route Administration Date Status COVID-19 [...] Education Language: Question Answer Notes Languages spoken: Finnish Church: Question Answer Notes Church No baptist beliefs that would impact health care. Sexual [...] Notes Start Da te End Date Status Haloperidol 0.5 MG 1 tablet Orally Once a day a s needed for agitation for 30 day(s) Dec, Active Latanoprost 0.005 % 1 drop Ophthalmic to both eyes Once a day for 9 0 day(s) Active Fiber Adult Gummies 2 GM 1 tab Orally once daily Active Tylenol 325 MG 2 tablet as needed Orally b reak through pain along with BID dose for 30 Days Dec, Active Nystatin 047888 UNIT/GM 1 application to bilateral g roin affected area Externally Twice a day as needed for 30 day(s) September, Active MiraLax - as directed Orally twice a week Active Cranberry 450 MG 1 tablet with meals Orally Twice a day for 30 d ay(s) Mar, Active amLODIPine Besylate 5 MG 1 tablet Orally Once a day for 30 day(s) Active HM Lidocaine Patch 4 % as directed Externally Daily as needed for 30 Days Active Memantine HCl 10 MG 1 tablet Orally Twice a day Active Aspirin 81 81 MG 1 tablet Orally Once a day for 30 day(s) Active Levothyroxine Sodium 50 MCG 1 tablet on an empty stoma ch in the morning Orally Once a day for 30 Days Active Losartan Potassium 50 MG 1 tablet Orally Once a day Active DULoxetine HCl 30 MG 1 capsule Orally Once a day for 30 Days Active Haloperidol 0.5 MG 1 tablet Orally Once a day for 30 Days Aug, Active Milk of Magnesia 400 MG/5ML 30 ml as needed Orally Daily for 30 Days Active Keflex 250 MG 2 capsule Orally bid for 5 day(s) Nov, Active Aricept 10 MG 1 tablet at bedtime Orally Once a day Dec Active Daily Multivitamin 1 1 cap Orally Daily for 30 Days Jun Active Vitamin D 1000 UNIT 1 capsule Orally Once a day for 30 day(s) Active Menthol (Topical Analgesic) 3.5 % 1 application to aff ected neck area as needed Externally bid for 30 Days Dec, Activ e Debrox 6.5 % 5 drops into affected ear Otic Twice a day for 5 day(s) Nov, Active Cyanocobalamin 1000 MCG 1 tablet Orally Daily for 30 days Active Rosuvastatin Calcium 10 MG 1 tablet Orally before bedtime for 30 Days Active Debrox 6.5 % [...] daily for 30 Days September, Active Dulcolax [place] Stool Softener 100 MG 1 capsule Orally once daily for 30 day(s) Active Calcium-Vitamin D 600-400 MG-UNIT 1 tablet with a meal Orally Once a day for 90 day(s) Jul, Active Combigan 0.2-0.5 % 1 drop into affected eye Ophthalmic Twice a day Active PROCEDURES No Information RESULTS No Results REASON FOR VISIT hallucinations/neck pain MEDICAL (GENERAL) HISTORY Type Description Date Medical History Hypertension Medical History Hyperlipidemia Medical History Open angle Glaucoma- Dr. Vicente Weiss Medical History osteoporosis- Medical History Ostoarthritis involving multiple joints Medical History Age related macular degenration- Dr. Janis Weiss Medical History neurogenic bladder/urinary i ncontinence- 08/2012. S/p spinal stimulator- Interstim implant/- 10/[address] Zonia [place]don[place]. Concha Santana- jones women Medical History [...] colonscopy 2005 Surgical History rotator cuff repair 2006 Surgical History cystoscopy 2007 Surgical History upper endoscopy 2009 Surgical History laminectomy/spinal fusion(S1-L4) 2010 Surgical History Oculoplasty both eyes 2009 Surgical History Biopsy under right breast 2011 Surgical History Laminectomy/Spinal Infusion(L4-T9) 2012 Surgical History [...] No Information FUNCTIONAL STATUS No Information ASSESSMENTS No Information PLAN OF TREATMENT Medication Medication Name Sig Start Date Stop Date Keflex 250 MG 2 capsule Orally bid for 5 day(s) Nov, Aricept 10 MG 1 tablet at bedtime Orally Once a day Dec, Vitamin D 1000 UNIT 1 capsule Orally Once a day for 30 day(s) Cyanocobalamin 1000 MCG 1 tablet Orally Daily for 30 days Rosuvastatin Calcium 10 MG 1 tablet Orally before bedtime for 30 Days Lidocaine 4 % as directed Externally Once a day for 30 Days DULoxetine HCl 30 MG 1 capsule Orally Once a day for 30 Days Milk of Magnesia 400 MG/5ML 30 ml as needed Orally Daily for 30 Days Fiber Adult Gummies 2 GM 1 tab Orally once daily MiraLax - as directed Orally twice a week Tylenol 325 MG 2 tablet as needed Orally b reak through pain along with BID dose for 30 Days Dec, Caltrate 600+D 600-800 MG-UNIT 1 tablet with a meal Or ally Once a day for 30 day(s) Levothyroxine Sodium 50 MCG 1 tablet on an empty stoma ch in the morning Orally Once a day for 30 Days Memantine HCl 10 MG 1 tablet Orally Twice a day Haloperidol 0.5 MG 1 tablet Orally Once a day a s needed for agitation for 30 day(s) Dec, Menthol (Topical Analgesic) 3.5 % 1 application to aff ected neck area as needed Externally bid for 30 Days Dec, Lidocaine Patch 4 % as directed Externally [...] Days Aug Next Appt Details Provider Name:Alicia Hurdkatarzyna, 06-27 03:00:00 PM, [address] [facility], , [place], [address], Insurance Providers Payer Name Payer Address Payer Phone Insured Name Patient Relati onship to Insured Coverage Start Date Coverage End Date MEDICARE Part A and B [address] [facility] [phone] [employer] [address] [facility] [address] [place] [employer] MEDICAID [employer] [address] [facility] [id number] [employer]
--- OUTSIDE RECORDS SUMMARY | 2021-03-28 16:47 | CCD ---
Author Author [facility] Organization [facility] Address Unknown Phone Unavailable Care Team Providers Care Nsh Teacher Name Role Phone Alicia Ruiz Unavailable PROBLEMS Type Condition ICD9-CM Code [id number] Code Onset Dates Condition S tatus W/U Status Risk SNOMED Code Notes Problem Cervical spondylosis with myelopathy M47.12 Act azam confirmed 71660806 Problem Vitamin D deficiency, unspecified E55.9 Active con firmed 07891041 Problem Gait disturbance R26.9 Active confirmed 223 32207 Problem Gastroesophageal reflux disease K21.9 Active confi rmed 695632847 Problem Neurogenic bladder N31.9 Active confirmed 3 14662319 Problem Osteoporosis M81.0 Active confirmed 0815497 6 Problem Essential (primary) hypertension I10 Active conf irmed 82631678 Problem Constipation K59.00 Active confirmed 0753130 8 Problem Incontinence of urine R32 Active confirmed 745191957 Problem Memory loss R41.3 Active confirmed 19178761 Problem Dementia F03.90 Active confirmed 03751432 Problem Hallucinations, unspecified R44.3 Active confirmed 6798961 Problem Glaucoma H40.9 Active confirmed 31979720 Problem Visual hallucinations R44.1 Active confirmed 54408037 Problem Hyperlipidemia E78.5 Active confirmed 32323 004 Problem Hypothyroidism (acquired) E03.9 Active confirmed 011095369 Problem Urinary incontinence, unspecified type R32 A ctive confirmed 786396563 Problem Atrophic vaginitis N95.2 Active confirmed 5 0536128 Problem Constipation, unspecified constipation type K59.00 Active confirmed 99507554 Problem Unspecified dementia without behavioral disturbance F03.90 Active confirmed 7697257081132 ALLERGIES Allergen (clinical drug ingredient) Drug/Non Drug Allergy do cumented on EMR Reaction Allergy Type Onset Date Status Codeine Phosphate([facility] Code:[address]-22) Anaphylaxis Drug Allergy Active dexamethasone Dexamethasone([facility] Code:[address]-51) anxiety Drug A llergy Active Narendra inhibitor (for allergies use only) COUGH Drug All ergy Active diclofenac Voltaren([facility] Code:[address]-61) Rash Drug Allergy Active ENCOUNTERS from 1935 to 2021-01-09 Encounter Location Date Provider Diagnosis [facility] [phone] [place] [address] Dec, Alicia Sutherlandhakeem IMMUNIZATIONS Vaccine Route Administration [...] Education Language: Question Answer Notes Languages spoken: Kyrgyz Jew: Question Answer Notes Jew No orthodox beliefs that would impact health care. Sexual [...] dose for 30 Days Dec, Active Nystatin 262608 UNIT/GM 1 application to bilateral g roin [...] daily for 30 Days September, Active Dulcolax [place] Stool Softener 100 MG 1 capsule Orally once daily for 30 day(s) Active Calcium-Vitamin D 600-400 MG-UNIT 1 tablet with a meal Orally Once a day for 90 day(s) Jul, Active Combigan 0.2-0.5 % 1 drop into affected eye Ophthalmic Twice a day Active PROCEDURES No Information RESULTS No Results REASON FOR VISIT FYI mom mental change MEDICAL (GENERAL) HISTORY Type Description Date Medical History Hypertension Medical History Hyperlipidemia Medical History Open angle Glaucoma- Dr. Vicente Weiss Medical History osteoporosis- Medical History Ostoarthritis involving multiple joints Medical History Age related macular degenration- Dr. Janis Weiss Medical History neurogenic bladder/urinary i ncontinence- 08/2012. S/p spinal stimulator- Interstim implant/- 10/[address] Zonia Nelson [place]. Concha Santana- jones women Medical History GERD [...] History cystoscopy 2006 Surgical History upper endoscopy 2009 Surgical History [...] Provider Name:Alicia Hurdkatarzyna, 06-27 03:00:00 PM, [address] [facility], , [place], [address], Insurance Providers Payer Name Payer Address Payer Phone Insured Name Patient Relati onship to Insured Coverage Start Date Coverage End Date MEDICAID [employer] [address] [facility] [address] CHO,[place] G self FOR LIFE [address] [facility] [address] [place] self MEDICARE Part A and B [address] [facility] [id number] [phone] [place] CHO self
--- OUTSIDE RECORDS SUMMARY | 2021-03-28 16:47 | CCD ---
Author Author [facility] Organization [facility] Address Unknown Phone Unavailable Care Team Providers Care Customer Program Manager Name Role Phone Alicia Ruiz Unavailable PROBLEMS Type Condition ICD9-CM Code KSA93-QS Code Onset Dates Condition S tatus W/U Status Risk SNOMED Code Notes Problem Cervical spondylosis with myelopathy M47.12 Act azam confirmed 84650203 Problem Vitamin D deficiency, unspecified E55.9 Active con firmed 48020149 Problem Gait disturbance R26.9 Active confirmed 223 78626 Problem Gastroesophageal reflux disease K21.9 Active confi rmed 322378708 Problem Neurogenic bladder N31.9 Active confirmed 3 57066823 Problem Osteoporosis M81.0 Active confirmed 7117738 6 Problem Essential (primary) hypertension I10 Active conf irmed 50286628 Problem Constipation K59.00 Active confirmed 6483925 8 Problem Incontinence of urine R32 Active confirmed 852678380 Problem Memory loss R41.3 Active confirmed 51984148 Problem Dementia F03.90 Active confirmed 49319434 Problem Hallucinations, unspecified R44.3 Active confirmed 7615548 Problem Glaucoma H40.9 Active confirmed 44340734 Problem Visual hallucinations R44.1 Active confirmed 39873771 Problem Hyperlipidemia E78.5 Active confirmed 40680 004 Problem Hypothyroidism (acquired) E03.9 Active confirmed 433215593 Problem Urinary incontinence, unspecified type R32 A ctive confirmed 048035326 Problem Atrophic vaginitis N95.2 Active confirmed 5 6219367 Problem Constipation, unspecified constipation type K59.00 Active confirmed 30358905 Problem Unspecified dementia without behavioral disturbance F03.90 Active confirmed 6429534444036 ALLERGIES Allergen (clinical drug ingredient) Drug/Non Drug Allergy do cumented on EMR Reaction Allergy Type Onset Date Status Codeine Phosphate([facility] Code:[address]-25) Anaphylaxis Drug Allergy Active dexamethasone Dexamethasone([facility] Code:[address]-05) anxiety Drug A llergy Active Narendra inhibitor (for allergies use only) COUGH Drug All ergy Active diclofenac Voltaren([facility] Code:[address]-40) Rash Drug Allergy Active ENCOUNTERS from 1936 to 2021-01-09 Encounter Location Date Provider [facility] [phone] [place] [address] Dec, Alicia Sutherlandhakeem IMMUNIZATIONS Vaccine Route Administration [...] Education Language: Question Answer Notes Languages spoken: Albanian Anabaptist: Question Answer Notes Anabaptist No pentecostalism beliefs that would impact health care. Sexual [...] dose for 30 Days Dec, Active Nystatin 393055 UNIT/GM 1 application to bilateral g roin [...] daily for 30 Days September, Active Dulcolax [place] Stool Softener 100 MG 1 capsule Orally once daily for 30 day(s) Active Calcium-Vitamin D 600-400 MG-UNIT 1 tablet with a meal Orally Once a day for 90 day(s) Jul, Active Combigan 0.2-0.5 % 1 drop into affected eye Ophthalmic Twice a day Active PROCEDURES No Information RESULTS No Results REASON FOR VISIT sent to ER MEDICAL (GENERAL) HISTORY Type Description Date Medical History Hypertension Medical History Hyperlipidemia Medical History Open angle Glaucoma- Dr. Vicente Weiss Medical History osteoporosis- Medical History Ostoarthritis involving multiple joints Medical History Age related macular degenration- Dr. Janis Weiss Medical History neurogenic bladder/urinary i ncontinence- 08/2012. S/p spinal stimulator- Interstim implant/- [place] [place] Concha Santana- jones women Medical History [...] Days Aug Next Appt Details Provider Name:Alicia Caraballorubens, 06-27 03:00:00 PM, [address] [facility], , [place], [address], Insurance Providers Payer Name Payer Address Payer Phone Insured Name Patient Relati onship to Insured Coverage Start Date Coverage End Date MEDICAID [employer] [address] [facility] [address] CHO,[place] G self FOR LIFE [address] [facility] [address] [place] CHO self MEDICARE Part A and B [address] [facility] [id number] [phone] [place] CHO self
--- OUTSIDE RECORDS SUMMARY | 2021-03-28 16:47 | CCD ---
Author Author [facility] Organization [facility] Address Unknown Phone Unavailable Care Team Providers Care Windshield Wiper Repairer Name Role Phone Alicia Ruiz Unavailable PROBLEMS Type Condition ICD9-CM Code [id number] Code Onset Dates Condition S tatus W/U Status Risk SNOMED Code Notes Problem Cervical spondylosis with myelopathy M47.12 Act azam confirmed 07875558 Problem Vitamin D deficiency, unspecified E55.9 Active con firmed 12672792 Problem Gait disturbance R26.9 Active confirmed 223 42104 Problem Gastroesophageal reflux disease K21.9 Active confi rmed 815336288 Problem Neurogenic bladder N31.9 Active confirmed 3 63448066 Problem Osteoporosis M81.0 Active confirmed 7421361 6 Problem Essential (primary) hypertension I10 Active conf irmed 51717269 Problem Constipation K59.00 Active confirmed 2944688 8 Problem Incontinence of urine R32 Active confirmed 422299999 Problem Memory loss R41.3 Active confirmed 20875649 Problem Dementia F03.90 Active confirmed 37516675 Problem Hallucinations, unspecified R44.3 Active confirmed 1155025 Problem Glaucoma H40.9 Active confirmed 20994065 Problem Visual hallucinations R44.1 Active confirmed 36430452 Problem Hyperlipidemia E78.5 Active confirmed 42852 004 Problem Hypothyroidism (acquired) E03.9 Active confirmed 938360434 Problem Urinary incontinence, unspecified type R32 A ctive confirmed 062292809 Problem Atrophic vaginitis N95.2 Active confirmed 5 6626304 Problem Constipation, unspecified constipation type K59.00 Active confirmed 95678251 Problem Unspecified dementia without behavioral disturbance F03.90 Active confirmed 7254286672367 ALLERGIES Allergen (clinical drug ingredient) Drug/Non Drug Allergy do cumented on EMR Reaction Allergy Type Onset Date Status Codeine Phosphate([facility] Code:[address]-05) Anaphylaxis Drug Allergy Active dexamethasone Dexamethasone([facility] Code:[address]-80) anxiety Drug A llergy Active Narendra inhibitor (for allergies use only) COUGH Drug All ergy Active diclofenac Voltaren([facility] Code:[address]-99) Rash Drug Allergy Active ENCOUNTERS from 1936 to 2021-01-01 Encounter Location Date Provider Diagnosis [facility] [phone] [place] [address] Dec, Alicia Sutherlandhakeem IMMUNIZATIONS Vaccine Route Administration [...] Education Language: Question Answer Notes Languages spoken: Togolese Episcopal: Question Answer Notes Episcopal No christianity beliefs that would impact health care. Sexual [...] Orally Daily for 30 days Active Nystatin 481162 UNIT/GM 1 application to bilateral g roin [...] daily for 30 Days September, Active Dulcolax [place] Stool Softener 100 MG 1 capsule Orally once daily for 30 day(s) Active Calcium-Vitamin D 600-400 MG-UNIT 1 tablet with a meal Orally Once a day for 90 day(s) Jul, Active Combigan 0.2-0.5 % 1 drop into affected eye Ophthalmic Twice a day Active PROCEDURES No Information RESULTS No Results REASON FOR VISIT Елена Cho MEDICAL (GENERAL) HISTORY Type Description Date Medical History Hypertension Medical History Hyperlipidemia Medical History Open angle Glaucoma- Dr. Vicente Weiss Medical History osteoporosis- Medical History Ostoarthritis involving multiple joints Medical History Age related macular degenration- Dr. Janis Weiss Medical History neurogenic bladder/urinary i ncontinence- 08/2012. S/p spinal stimulator- Interstim implant/- 10/2017 By ANKIT Wheatley. Concha Santana- robert women Medical History GERD [...] History Laminectomy/Spinal Infusion(T9-T4) 2012 Surgical History Stroke [address] scan 2013 Surgical [...] Externally Once a day for 30 Days Next Appt Details Provider Name:Alicia Hurdkatarzyna, 06-27 03:00:00 PM, [address] [facility], , [place], [address], Insurance Providers Payer Name Payer Address Payer Phone Insured Name Patient Relati onship to Insured Coverage Start Date Coverage End Date FOR LIFE [address] [facility] [address] [place]ЕНА CHO self MEDICAID [employer] [address] [facility] [id number] [phone] ЕЛЕНА CHO self MEDICARE Part A and B [address] [facility] [address] [phone] ЕЛЕНА CHO self
--- OUTSIDE RECORDS SUMMARY | 2021-03-28 16:48 | CCD ---
Author Author [facility] Organization [facility] Address Unknown Phone Unavailable Care Team Providers Care Urgent Care Physician Name Role Phone Yuko Caba MD Unavailable Unavailable Yuko Caba MD Unavailable Unavailable Yuko Caba MD Unavailable Unavailable Yuko Caba MD Unavailable Unavailable Yuko Caba MD Unavailable Unavailable Yuko Caba MD Unavailable Unavailable Ykuo Caba MD Unavailable Unavailable Yuko Caba MD Unavailable Unavailable Yuko Caba MD Unavailable Unavailable Yuko Caba MD Unavailable Unavailable Yuko Caba MD Unavailable Unavailable Yuko Caba MD Unavailable Unavailable Yuko Caba MD Unavailable Unavailable Yuko Caba MD Unavailable Unavailable Yuko Caba MD Unavailable Unavailable Yuko Caba MD Unavailable Unavailable Yuko Caba MD Unavailable Unavailable Yuko Caba MD Unavailable Unavailable Yuko Caba MD Unavailable Unavailable Yuko Caba MD Unavailable Unavailable Yuko Caba MD Unavailable Unavailable Yuko Caba MD Unavailable Unavailable Yuko Caba MD Unavailable Unavailable Yuko Caba MD Unavailable Unavailable Yuko Caba MD Unavailable Unavailable Yuko Caba MD Unavailable Unavailable Yuko Caba MD Unavailable Unavailable Yuko Caba MD Unavailable Unavailable Yuko Caba MD Unavailable Unavailable Yuko Caba MD Unavailable Unavailable Yuko Caba MD Unavailable Unavailable Yuko Caba MD Unavailable Unavailable Yuko Caba MD Unavailable Unavailable Yuko Caba MD Unavailable Unavailable Yuko Caba MD Unavailable Unavailable Yuko Caba MD Unavailable Unavailable Yuko Caba MD Unavailable Unavailable Yuko Caba MD Unavailable Unavailable Ali, Yuko MD Unavailable Unavailable Ali, Yuko MD Unavailable Unavailable Ali, Yuko MD Unavailable Unavailable Ali, Yuko MD Unavailable Unavailable Ali, Yuko MD Unavailable Unavailable Ali, Yuko MD Unavailable Unavailable Ali, Yuko MD Unavailable Unavailable Ali, Yuko MD Unavailable Unavailable Ali, Yuko MD Unavailable Unavailable Ali, Yuko MD Unavailable Unavailable Ali, Yuko MD Unavailable Unavailable Ali, Yuko MD Unavailable Unavailable Re-disclosure Warning The records that you are about to access may contain information from federally-assisted alcohol or drug abuse programs. If such information is present, then the following federally mandated warning applies: This information has been disclosed to you from records protected by federal confidentiality rules (42 CFR part 2). The federal rules prohibit you from making any further disclosure of this information unless further disclosure is expressly permitted by the written consent of the person to whom it pertains or as otherwise permitted by 42 CFR part 2. A general authorization for the release of medical or other information is NOT sufficient for this purpose. The Federal rules restrict any use of the information to criminally investigate or prosecute any alcohol or drug abuse patient.The records that you are about to access may contain highly sensitive health information, the redisclosure of which is protected by Article 27-F of the [facility] Public Health law. If you continue you may have access to information: Regarding HIV / AIDS; Provided by facilities licensed or operated by the [facility] Office of Mental Health; or Provided by the [facility] Office for People With Developmental Disabilities. If such information is present, then the following [facility] mandated warning applies: This information has been disclosed to you from confidential records which are protected by state law. State law prohibits you from making any further disclosure of this information without the specific written consent of the person to whom it pertains, or as otherwise permitted by law. Any unauthorized further disclosure in violation of state law may result in a fine or group home sentence or both. A general authorization for the release of medical or other information is NOT sufficient authorization for further disc losure. 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 Encounter Providers Location Date Indications Data Source(s ) Unknown [address] [facility], [facility] [address] 01/19/2021 12:00:00 AM EDT eCW1 ([facility]) [place] [address] [facility] [place] [address] 01/10/2021 12:00:00 AM EDT eCW1 ([facility]) [place] [address] [facility] [place] [address] 01/09/2021 12:00:00 AM EDT eCW1 ([facility]) [place] [address] [facility] [place] [address] 01/08/2021 12:00:00 AM EDT eCW1 ([facility]) [place] [address] [facility] [place] [address] 01/03/2021 12:00:00 AM EDT eCW1 ([facility]) Unknown [address] [facility] [place] [address] 01/01/2021 12:00:00 AM EDT eCW1 ([facility]) Office Visit, Est Pt., Level 4 PC [address] [place] [address] 12/27/2020 12:00:00 AM EDT eCW1 ([facility]) Unknown [address] [facility] [place] [address] 12/19/2020 12:00:00 AM EDT eCW1 ([facility]) Unknown [address] [facility] [place] [address] 11/29/2020 12:00:00 AM EDT eCW1 ([facility]) Unknown [address] [facility] [place] [address] 11/27/2020 12:00:00 AM EDT eCW1 ([facility]) Outpatient Attender: Yuko Caba MD Main office - [place] 11/22/2020 03:50:00 PM EDT MEDENT ([facility] barbara, ) Unknown [address] [facility] [place] [address] 11/14/2020 12:00:00 AM EDT eCW1 ([facility]) Unknown [address] [facility] [place] [address] 11/03/2020 12:00:00 AM EDT eCW1 ([facility]) Office Visit, Est Pt., Level 3 [address] [place] [address] 10/23/2020 12:00:00 AM EDT eCW1 ([facility]) Unknown [address] [facility] [address] 10/20/2020 12:00:00 AM EDT eCW1 ([facility]) Outpatient Attender: Yuko Caba MD Main office - [place] 10/04/2020 10:00:00 AM EDT MEDENT ([facility] sukhdeep, ) Unknown [address] [facility] [address] 10/04/2020 12:00:00 AM EDT eCW1 ([facility]) Unknown [address] [facility] [address] 09/29/2020 12:00:00 AM EDT eCW1 ([facility]) Unknown [address] [facility] Y [address] 09/25/2020 12:00:00 AM EDT eCW1 ([facility]) Unknown [address] [facility] Y [address] 09/15/2020 12:00:00 AM EDT eCW1 ([facility]) Unknown [address] [facility] [address] 09/15/2020 12:00:00 AM EDT eCW1 ([facility]) Unknown [address] [facility] Y [address] 09/14/2020 12:00:00 AM EDT eCW1 ([facility]) Unknown [address] [facility] Y [address] 09/11/2020 12:00:00 AM EDT eCW1 ([facility]) Unknown [address] [facility] Y [address] 09/05/2020 12:00:00 AM EDT eCW1 ([facility]) Office Visit, Est Pt., Level 3 PC [address] [place] [address] 08/23/2020 12:00:00 AM EDT eCW1 ([facility]) Unknown [address] [facility] [place] [address] 08/08/2020 12:00:00 AM EST eCW1 ([facility]) Unknown [address] [facility] [place] [address] 07/31/2020 12:00:00 AM EST eCW1 ([facility]) Unknown [address] [facility] [place] [address] 07/19/2020 12:00:00 AM EST eCW1 ([facility]) Unknown [address] [facility] [place] [address] 07/14/2020 12:00:00 AM EST eCW1 ([facility]) Unknown [address] [facility] [place] [address] 07/07/2020 12:00:00 AM EST eCW1 ([facility]) Unknown [address] [facility] [place] [address] 07/05/2020 12:00:00 AM EST eCW1 ([facility]) Unknown [address] [facility] [place] [address] 07/03/2020 12:00:00 AM EST eCW1 ([facility]) Unknown [address] [facility] [place] [address] 07/03/2020 12:00:00 AM EST eCW1 ([facility]) Unknown [address] [facility] [place] [address] 06/30/2020 12:00:00 AM EST eCW1 ([facility]) Unknown [address] [facility] [place] [address] 06/30/2020 12:00:00 AM EST eCW1 ([facility]) Unknown [address] [facility] [place] [address] 06/28/2020 12:00:00 AM EST eCW1 ([facility]) Unknown [address] [facility] [place] [address] 06/15/2020 12:00:00 AM EST eCW1 ([facility]) Office Visit, Est Pt., Level 4 PC [address] [place] [address] 06/14/2020 12:00:00 AM EST eCW1 ([facility]) Unknown [address] [facility] [place] [address] 06/12/2020 12:00:00 AM EST eCW1 ([facility]) Unknown [address] [facility] [place] [address] 06/05/2020 12:00:00 AM EST eCW1 ([facility]) Unknown [address] [facility] [place] [address] 05/30/2020 12:00:00 AM EST eCW1 ([facility]) Unknown [address] [facility] [place] [address] 05/21/2020 12:00:00 AM EST eCW1 ([facility]) Unknown [address] [facility] [place] [address] 05/18/2020 12:00:00 AM EST eCW1 ([facility]) Unknown [address] [facility] [place] [address] 04/21/2020 12:00:00 AM EST eCW1 ([facility]) Unknown [address] [facility] [place] [address] 04/19/2020 12:00:00 AM EST eCW1 ([facility]) Unknown [address] [facility] [place] [address] 04/15/2020 12:00:00 AM EST eCW1 ([facility]) Unknown [address] [facility] [place] [address] 04/05/2020 12:00:00 AM EST eCW1 ([facility]) Office Visit, Est Pt., Level 4 PC [address] [place] [address] 04/04/2020 12:00:00 AM EST eCW1 ([facility]) Unknown [address] [facility] [place] [address] 03/30/2020 12:00:00 AM EDT eCW1 ([facility]) Unknown [address] [facility] [place] [address] 03/27/2020 12:00:00 AM EDT eCW1 ([facility]) Unknown [address] [facility] [address] 03/21/2020 12:00:00 AM EDT eCW1 ([facility]) Unknown [address] [facility] [place] [address] 03/13/2020 12:00:00 AM EDT eCW1 ([facility]) Unknown [address] [facility] [place] [address] 03/08/2020 12:00:00 AM EDT eCW1 ([facility]) Immunizations Vaccine Date Status Description Data Source(s) COVID-19 dose #2 given elsewhere Unspecified 07/17/2020 07:5 7:00 AM EST completed eCW1 ([facility]) COVID-19 dose #2 given elsewhere Unspecified 07/17/2020 07:5 7:00 AM EST completed eCW1 ([facility]) COVID-19 dose #2 given elsewhere Unspecified 07/17/2020 07:5 7:00 AM EST completed eCW1 ([facility]) COVID-19 dose #2 given elsewhere Unspecified 07/17/2020 07:5 7:00 AM EST completed eCW1 ([facility]) COVID-19 dose #2 given elsewhere Unspecified 07/17/2020 07:5 7:00 AM EST completed eCW1 ([facility]) COVID-19 dose #2 given elsewhere Unspecified 07/17/2020 07:5 7:00 AM EST completed eCW1 ([facility]) COVID-19 dose #2 given elsewhere Unspecified 07/17/2020 07:5 7:00 AM EST completed eCW1 ([facility]) COVID-19 dose #2 given elsewhere Unspecified 07/17/2020 07:5 7:00 AM EST completed eCW1 ([facility]) COVID-19 dose #2 given elsewhere Unspecified 07/17/2020 07:5 7:00 AM EST completed eCW1 ([facility]) COVID-19 dose #2 given elsewhere Unspecified 07/17/2020 07:5 7:00 AM EST completed eCW1 ([facility]) COVID-19 dose #2 given elsewhere Unspecified 07/17/2020 07:5 7:00 AM EST completed eCW1 ([facility]) COVID-19 dose #2 given elsewhere Unspecified 07/17/2020 07:5 7:00 AM EST completed eCW1 ([facility]) COVID-19 dose #2 given elsewhere Unspecified 07/17/2020 07:5 7:00 AM EST completed eCW1 ([facility]) COVID-19 dose #2 given elsewhere Unspecified 07/17/2020 07:5 7:00 AM EST completed eCW1 ([facility]) COVID-19 dose #2 given elsewhere Unspecified 07/17/2020 07:5 7:00 AM EST completed eCW1 ([facility]) COVID-19 dose #2 given elsewhere Unspecified 07/17/2020 07:5 7:00 AM EST completed eCW1 ([facility]) COVID-19 dose #2 given elsewhere Unspecified 07/17/2020 07:5 7:00 AM EST completed eCW1 ([facility]) COVID-19 dose #2 given elsewhere Unspecified 07/17/2020 07:5 7:00 AM EST completed eCW1 ([facility]) COVID-19 dose #2 given elsewhere Unspecified 07/17/2020 07:5 7:00 AM EST completed eCW1 ([facility]) COVID-19 dose #2 given elsewhere Unspecified 07/17/2020 07:5 7:00 AM EST completed eCW1 ([facility]) COVID-19 dose #2 given elsewhere Unspecified 07/17/2020 07:5 7:00 AM EST completed eCW1 ([facility]) COVID-19 dose #2 given elsewhere Unspecified 07/17/2020 07:5 7:00 AM EST completed eCW1 ([facility]) COVID-19 dose #2 given elsewhere Unspecified 07/17/2020 07:5 7:00 AM EST completed eCW1 ([facility]) COVID-19 dose #2 given elsewhere Unspecified 07/17/2020 07:5 7:00 AM EST completed eCW1 ([facility]) COVID-19 dose #2 given elsewhere Unspecified 07/17/2020 07:5 7:00 AM EST completed eCW1 ([facility]) COVID-19 dose #2 given elsewhere Unspecified 07/17/2020 07:5 7:00 AM EST completed eCW1 ([facility]) COVID-19 VACCINE Pfizer 07/17/2020 12:00:00 AM EST completed [employer] Vaccine Series Complete: YESThis Data wa s Submitted to [facility] Via [employer]. COVID-19 dose #1 given elsewhere Unspecified 06/26/2020 07:5 6:00 AM EST completed eCW1 ([facility]) COVID-19 dose #1 given elsewhere Unspecified 06/26/2020 07:5 6:00 AM EST completed eCW1 ([facility]) COVID-19 dose #1 given elsewhere Unspecified 06/26/2020 07:5 6:00 AM EST completed eCW1 ([facility]) COVID-19 dose #1 given elsewhere Unspecified 06/26/2020 07:5 6:00 AM EST completed eCW1 ([facility]) COVID-19 dose #1 given elsewhere Unspecified 06/26/2020 07:5 6:00 AM EST completed eCW1 ([facility]) COVID-19 dose #1 given elsewhere Unspecified 06/26/2020 07:5 6:00 AM EST completed eCW1 ([facility]) COVID-19 dose #1 given elsewhere Unspecified 06/26/2020 07:5 6:00 AM EST completed eCW1 ([facility]) COVID-19 dose #1 given elsewhere Unspecified 06/26/2020 07:5 6:00 AM EST completed eCW1 ([facility]) COVID-19 dose #1 given elsewhere Unspecified 06/26/2020 07:5 6:00 AM EST completed eCW1 ([facility]) COVID-19 dose #1 given elsewhere Unspecified 06/26/2020 07:5 6:00 AM EST completed eCW1 ([facility]) COVID-19 dose #1 given elsewhere Unspecified 06/26/2020 07:5 6:00 AM EST completed eCW1 ([facility]) COVID-19 dose #1 given elsewhere Unspecified 06/26/2020 07:5 6:00 AM EST completed eCW1 ([facility]) COVID-19 dose #1 given elsewhere Unspecified 06/26/2020 07:5 6:00 AM EST completed eCW1 ([facility]) COVID-19 dose #1 given elsewhere Unspecified 06/26/2020 07:5 6:00 AM EST completed eCW1 ([facility]) COVID-19 dose #1 given elsewhere Unspecified 06/26/2020 07:5 6:00 AM EST completed eCW1 ([facility]) COVID-19 dose #1 given elsewhere Unspecified 06/26/2020 07:5 6:00 AM EST completed eCW1 ([facility]) COVID-19 dose #1 given elsewhere Unspecified 06/26/2020 07:5 6:00 AM EST completed eCW1 ([facility]) COVID-19 dose #1 given elsewhere Unspecified 06/26/2020 07:5 6:00 AM EST completed eCW1 ([facility]) COVID-19 dose #1 given elsewhere Unspecified 06/26/2020 07:5 6:00 AM EST completed eCW1 ([facility]) COVID-19 dose #1 given elsewhere Unspecified 06/26/2020 07:5 6:00 AM EST completed eCW1 ([facility]) COVID-19 dose #1 given elsewhere Unspecified 06/26/2020 07:5 6:00 AM EST completed eCW1 ([facility]) COVID-19 dose #1 given elsewhere Unspecified 06/26/2020 07:5 6:00 AM EST completed eCW1 ([facility]) COVID-19 dose #1 given elsewhere Unspecified 06/26/2020 07:5 6:00 AM EST completed eCW1 ([facility]) COVID-19 dose #1 given elsewhere Unspecified 06/26/2020 07:5 6:00 AM EST completed eCW1 ([facility]) COVID-19 dose #1 given elsewhere Unspecified 06/26/2020 07:5 6:00 AM EST completed eCW1 ([facility]) COVID-19 dose #1 given elsewhere Unspecified 06/26/2020 07:5 6:00 AM EST completed eCW1 ([facility]) COVID-19 VACCINE Pfizer 06/26/2020 12:00:00 AM EST completed [employer] Vaccine Series Complete: NOThis Data was Submitted to [facility] Via [employer]. influenza, recombinant, quadrIvalent,injectable, prese rvative free 04/14/2020 07:46:00 AM EST completed eCW1 ([facility]) influenza, recombinant, quadrIvalent,injectable, prese rvative free 04/14/2020 07:46:00 AM EST completed eCW1 ([facility]) influenza, recombinant, quadrIvalent,injectable, prese rvative free 04/14/2020 07:46:00 AM EST completed eCW1 ([facility]) influenza, recombinant, quadrIvalent,injectable, prese rvative free 04/14/2020 07:46:00 AM EST completed eCW1 ([facility]) influenza, recombinant, quadrIvalent,injectable, prese rvative free 04/14/2020 07:46:00 AM EST completed eCW1 ([facility]) influenza, recombinant, quadrIvalent,injectable, prese rvative free 04/14/2020 07:46:00 AM EST completed eCW1 ([facility]) influenza, recombinant, quadrIvalent,injectable, prese rvative free 04/14/2020 07:46:00 AM EST completed eCW1 ([facility]) influenza, recombinant, quadrIvalent,injectable, prese rvative free 04/14/2020 07:46:00 AM EST completed eCW1 ([facility]) influenza, recombinant, quadrIvalent,injectable, prese rvative free 04/14/2020 07:46:00 AM EST completed eCW1 ([facility]) influenza, recombinant, quadrIvalent,injectable, prese rvative free 04/14/2020 07:46:00 AM EST completed eCW1 ([facility]) influenza, recombinant, quadrIvalent,injectable, prese rvative free 04/14/2020 07:46:00 AM EST completed eCW1 ([facility]) influenza, recombinant, quadrIvalent,injectable, prese rvative free 04/14/2020 07:46:00 AM EST completed eCW1 ([facility]) influenza, recombinant, quadrIvalent,injectable, prese rvative free 04/14/2020 07:46:00 AM EST completed eCW1 ([facility]) influenza, recombinant, quadrIvalent,injectable, prese rvative free 04/14/2020 07:46:00 AM EST completed eCW1 ([facility]) influenza, recombinant, quadrIvalent,injectable, prese rvative free 04/14/2020 07:46:00 AM EST completed eCW1 ([facility]) influenza, recombinant, quadrIvalent,injectable, prese rvative free 04/14/2020 07:46:00 AM EST completed eCW1 ([facility]) influenza, recombinant, quadrIvalent,injectable, prese rvative free 04/14/2020 07:46:00 AM EST completed eCW1 ([facility]) influenza, recombinant, quadrIvalent,injectable, prese rvative free 04/14/2020 07:46:00 AM EST completed eCW1 ([facility]) influenza, recombinant, quadrIvalent,injectable, prese rvative free 04/14/2020 07:46:00 AM EST completed eCW1 ([facility]) influenza, recombinant, quadrIvalent,injectable, prese rvative free 04/14/2020 07:46:00 AM EST completed eCW1 ([facility]) influenza, recombinant, quadrIvalent,injectable, prese rvative free 04/14/2020 07:46:00 AM EST completed eCW1 ([facility]) influenza, recombinant, quadrIvalent,injectable, prese rvative free 04/14/2020 07:46:00 AM EST completed eCW1 ([facility]) influenza, recombinant, quadrIvalent,injectable, prese rvative free 04/14/2020 07:46:00 AM EST completed eCW1 ([facility]) influenza, recombinant, quadrIvalent,injectable, prese rvative free 04/14/2020 07:46:00 AM EST completed eCW1 ([facility]) influenza, recombinant, quadrIvalent,injectable, prese rvative free 04/14/2020 07:46:00 AM EST completed eCW1 ([facility]) influenza, recombinant, quadrIvalent,injectable, prese rvative free 04/14/2020 07:46:00 AM EST completed eCW1 ([facility]) influenza, recombinant, quadrIvalent,injectable, prese rvative free 04/14/2020 07:46:00 AM EST completed eCW1 ([facility]) influenza, recombinant, quadrIvalent,injectable, prese rvative free 04/14/2020 07:46:00 AM EST completed eCW1 ([facility]) influenza, recombinant, quadrIvalent,injectable, prese rvative free 04/14/2020 07:46:00 AM EST completed eCW1 ([facility]) influenza, recombinant, quadrIvalent,injectable, prese rvative free 04/14/2020 07:46:00 AM EST completed eCW1 ([facility]) influenza, recombinant, quadrIvalent,injectable, prese rvative free 04/14/2020 07:46:00 AM EST completed eCW1 ([facility]) influenza, recombinant, quadrIvalent,injectable, prese rvative free 04/14/2020 07:46:00 AM EST completed [facility] [facility] influenza, recombinant, quadrIvalent,injectable, prese rvative free 04/14/2020 07:46:00 AM EST completed eCW1 ([facility]) influenza, recombinant, quadrIvalent,injectable, prese rvative free 04/14/2020 07:46:00 AM EST completed eCW1 ([facility]) influenza, recombinant, quadrIvalent,injectable, prese rvative free 04/14/2020 07:46:00 AM EST completed eCW1 ([facility]) influenza, recombinant, quadrIvalent,injectable, prese rvative free 04/14/2020 07:46:00 AM EST completed eCW1 ([facility]) influenza, recombinant, quadrIvalent,injectable, prese rvative free 04/14/2020 07:46:00 AM EST completed eCW1 ([facility]) influenza, recombinant, quadrIvalent,injectable, prese rvative free 04/14/2020 07:46:00 AM EST completed eCW1 ([facility]) influenza, recombinant, quadrIvalent,injectable, prese rvative free 04/14/2020 07:46:00 AM EST completed eCW1 ([facility]) influenza, recombinant, quadrIvalent,injectable, prese rvative free 04/14/2020 07:46:00 AM EST completed eCW1 ([facility]) influenza, recombinant, quadrIvalent,injectable, prese rvative free 04/14/2020 07:46:00 AM EST completed eCW1 ([facility]) influenza, recombinant, quadrIvalent,injectable, prese rvative free 04/14/2020 07:46:00 AM EST completed eCW1 ([facility]) influenza, recombinant, quadrIvalent,injectable, prese rvative free 04/14/2020 07:46:00 AM EST completed eCW1 ([facility]) influenza, recombinant, quadrIvalent,injectable, prese rvative free 04/14/2020 07:46:00 AM EST completed eCW1 ([facility]) INFLUENZA VACCINE QUADRIVALENT (65 YR UP)/MF59 C.1/PF 04/14/2020 12:00:00 AM EST completed [facility] Medications Medication Brand Name Start Date Product Form Dose Route Admi nistrative Instructions Pharmacy Instructions Status Indications Reaction Description Data Source(s) Menthol (Topical Analgesic) 3.5 % UNK 01/08/2021 12:00:00 AM EDT active Menthol (Topical Analgesic) 3.5 % eCW1 ([facility]) Menthol (Topical Analgesic) 3.5 % UNK 01/08/2021 12:00:00 AM EDT active Menthol (Topical Analgesic) 3.5 % eCW1 ([facility]) Menthol (Topical Analgesic) 3.5 % UNK 01/08/2021 12:00:00 AM EDT active Menthol (Topical Analgesic) 3.5 % eCW1 ([facility]) Menthol (Topical Analgesic) 3.5 % UNK 01/08/2021 12:00:00 AM EDT active Menthol (Topical Analgesic) 3.5 % eCW1 ([facility]) Menthol (Topical Analgesic) 3.5 % UNK 01/08/2021 12:00:00 AM EDT active Menthol (Topical Analgesic) 3.5 % eCW1 ([facility]) Acetaminophen 325 MG Oral Tablet [Tylenol] Tylenol 325 MG Ty lenol 325 MG 01/03/2021 12:00:00 AM EDT 2.0 {tablet_as_needed} active Tylenol 325 MG eCW1 ([facility]) Acetaminophen 325 MG Oral Tablet [Tylenol] Tylenol 325 MG Ty lenol 325 MG 01/03/2021 12:00:00 AM EDT 2.0 {tablet_as_needed} active Tylenol 325 MG eCW1 ([facility]) Acetaminophen 325 MG Oral Tablet [Tylenol] Tylenol 325 MG Ty lenol 325 MG 01/03/2021 12:00:00 AM EDT 2.0 {tablet_as_needed} active Tylenol 325 MG eCW1 ([facility]) Haloperidol 0.5 MG Oral Tablet Haloperidol 0.5 MG 01/03/2021 12:00: 00 AM EDT 1.0 {tablet} active Haloperidol 0.5 MG eCW1 ([facility]) Haloperidol 0.5 MG Oral Tablet Haloperidol 0.5 MG 01/03/2021 12:00: 00 AM EDT 1.0 {tablet} active Haloperidol 0.5 MG eCW1 ([facility]) Haloperidol 0.5 MG Oral Tablet Haloperidol 0.5 MG 01/03/2021 12:00: 00 AM EDT 1.0 {tablet} active Haloperidol 0.5 MG eCW1 ([facility]) Acetaminophen 325 MG Oral Tablet [Tylenol] Tylenol 325 MG Ty lenol 325 MG 01/03/2021 12:00:00 AM EDT 2.0 {tablet_as_needed} active Tylenol 325 MG eCW1 ([facility]) Haloperidol 0.5 MG Oral Tablet Haloperidol 0.5 MG 01/03/2021 12:00: 00 AM EDT 1.0 {tablet} active Haloperidol 0.5 MG eCW1 ([facility]) Acetaminophen 325 MG Oral Tablet [Tylenol] Tylenol 325 MG Ty lenol 325 MG 01/03/2021 12:00:00 AM EDT 2.0 {tablet_as_needed} active Tylenol 325 MG eCW1 ([facility]) Haloperidol 0.5 MG Oral Tablet Haloperidol 0.5 MG 01/03/2021 12:00: 00 AM EDT 1.0 {tablet} active Haloperidol 0.5 MG eCW1 ([facility]) Keflex 250 MG UNK 12/27/2020 12:00:00 AM EDT 2.0 {capsule} active Keflex 250 MG eCW1 ([facility]) Keflex 250 MG UNK 12/27/2020 12:00:00 AM EDT 2.0 {capsule} active Keflex 250 MG eCW1 ([facility]) Keflex 250 MG UNK 12/27/2020 12:00:00 AM EDT 2.0 {capsule} active Keflex 250 MG eCW1 ([facility]) Keflex 250 MG UNK 12/27/2020 12:00:00 AM EDT 2.0 {capsule} active Keflex 250 MG eCW1 ([facility]) Keflex 250 MG UNK 12/27/2020 12:00:00 AM EDT 2.0 {capsule} active Keflex 250 MG eCW1 ([facility]) Keflex 250 MG UNK 12/27/2020 12:00:00 AM EDT 2.0 {capsule} active Keflex 250 MG eCW1 ([facility]) Keflex 250 MG UNK 12/27/2020 12:00:00 AM EDT 2.0 {capsule} active Keflex 250 MG eCW1 ([facility]) carbamide peroxide 65 MG/ML Otic Solution [Debrox] Debrox 6. 5 % Debrox 6.5 % 12/19/2020 12:00:00 AM EDT 5.0 {drops_into_affected_ear} active Debrox 6.5 % eCW1 ([facility]) carbamide peroxide 65 MG/ML Otic Solution [Debrox] Debrox 6. 5 % Debrox 6.5 % 12/19/2020 12:00:00 AM EDT 5.0 {drops_into_affected_ear} active Debrox 6.5 % eCW1 ([facility]) carbamide peroxide 65 MG/ML Otic Solution [Debrox] Debrox 6. 5 % Debrox 6.5 % 12/19/2020 12:00:00 AM EDT 5.0 {drops_into_affected_ear} active Debrox 6.5 % eCW1 ([facility]) carbamide peroxide 65 MG/ML Otic Solution [Debrox] Debrox 6. 5 % Debrox 6.5 % 12/19/2020 12:00:00 AM EDT 5.0 {drops_into_affected_ear} active Debrox 6.5 % eCW1 ([facility]) carbamide peroxide 65 MG/ML Otic Solution [Debrox] Debrox 6. 5 % Debrox 6.5 % 12/19/2020 12:00:00 AM EDT 5.0 {drops_into_affected_ear} active Debrox 6.5 % eCW1 ([facility]) carbamide peroxide 65 MG/ML Otic Solution [Debrox] Debrox 6. 5 % Debrox 6.5 % 12/19/2020 12:00:00 AM EDT 5.0 {drops_into_affected_ear} active Debrox 6.5 % eCW1 ([facility]) carbamide peroxide 65 MG/ML Otic Solution [Debrox] Debrox 6. 5 % Debrox 6.5 % 12/19/2020 12:00:00 AM EDT 5.0 {drops_into_affected_ear} active Debrox 6.5 % eCW1 ([facility]) carbamide peroxide 65 MG/ML Otic Solution [Debrox] Debrox 6. 5 % Debrox 6.5 % 12/19/2020 12:00:00 AM EDT 5.0 {drops_into_affected_ear} active Debrox 6.5 % eCW1 ([facility]) Memantine hydrochloride 10 MG Oral Tablet Memantine HCL 10/04/2020 12:00:00 AM EDT ORAL active MEDENT ([facility]) Donepezil hydrochloride 10 MG Oral Tablet Donepezil HCL 10/04/2020 12:00:00 AM EDT ORAL active MEDENT ([facility]) NITROFURANTOIN, MACROCRYSTALS 100 MG Ora l Capsule Nitrofurantoin Macrocrystal 100 MG Nitrofurantoin Macrocrystal 100 MG 10/02/2020 12:00:00 AM EDT active eCW1 ([facility]) NITROFURANTOIN, MACROCRYSTALS 100 MG Ora l Capsule Nitrofurantoin Macrocrystal 100 MG Nitrofurantoin Macrocrystal 100 MG 10/02/2020 12:00:00 AM EDT active Nitrofurantoin Macrocrystal 100 MG eCW1 ([facility]) Haloperidol 0.5 MG Oral Tablet Haloperidol 0.5 MG 09/25/2020 12:00: 00 AM EDT 1.0 {tablet} active Haloperidol 0.5 MG eCW1 ([facility]) Haloperidol 0.5 MG Oral Tablet Haloperidol 0.5 MG 09/25/2020 12:00: 00 AM EDT 1.0 {tablet} active Haloperidol 0.5 MG eCW1 ([facility]) Haloperidol 0.5 MG Oral Tablet Haloperidol 0.5 MG 09/25/2020 12:00: 00 AM EDT 1.0 {tablet} active Haloperidol 0.5 MG eCW1 ([facility]) Haloperidol 0.5 MG Oral Tablet Haloperidol 0.5 MG 09/25/2020 12:00: 00 AM EDT 1.0 {tablet} active Haloperidol 0.5 MG eCW1 ([facility]) Haloperidol 0.5 MG Oral Tablet Haloperidol 0.5 MG 09/25/2020 12:00: 00 AM EDT 1.0 {tablet} active Haloperidol 0.5 MG eCW1 ([facility]) Haloperidol 0.5 MG Oral Tablet Haloperidol 0.5 MG 09/25/2020 12:00: 00 AM EDT 1.0 {tablet} active Haloperidol 0.5 MG eCW1 ([facility]) Haloperidol 0.5 MG Oral Tablet Haloperidol 0.5 MG 09/25/2020 12:00: 00 AM EDT 1.0 {tablet} active Haloperidol 0.5 MG eCW1 ([facility]) Haloperidol 0.5 MG Oral Tablet Haloperidol 0.5 MG 09/25/2020 12:00: 00 AM EDT 1.0 {tablet} active Haloperidol 0.5 MG eCW1 ([facility]) Haloperidol 0.5 MG Oral Tablet Haloperidol 0.5 MG 09/25/2020 12:00: 00 AM EDT 1.0 {tablet} active Haloperidol 0.5 MG eCW1 ([facility]) Haloperidol 0.5 MG Oral Tablet Haloperidol 0.5 MG 09/25/2020 12:00: 00 AM EDT 1.0 {tablet} active Haloperidol 0.5 MG eCW1 ([facility]) Haloperidol 0.5 MG Oral Tablet Haloperidol 0.5 MG 09/25/2020 12:00: 00 AM EDT 1.0 {tablet} active Haloperidol 0.5 MG eCW1 ([facility]) Haloperidol 0.5 MG Oral Tablet Haloperidol 0.5 MG 09/25/2020 12:00: 00 AM EDT 1.0 {tablet} active Haloperidol 0.5 MG eCW1 ([facility]) Haloperidol 0.5 MG Oral Tablet Haloperidol 0.5 MG 09/25/2020 12:00: 00 AM EDT 1.0 {tablet} active Haloperidol 0.5 MG eCW1 ([facility]) Haloperidol 0.5 MG Oral Tablet Haloperidol 0.5 MG 09/25/2020 12:00: 00 AM EDT 1.0 {tablet} active Haloperidol 0.5 MG eCW1 ([facility]) Haloperidol 0.5 MG Oral Tablet Haloperidol 0.5 MG 09/25/2020 12:00: 00 AM EDT 1.0 {tablet} active eCW1 ([facility]) Haloperidol 0.5 MG Oral Tablet Haloperidol 0.5 MG 09/25/2020 12:00: 00 AM EDT 1.0 {tablet} active Haloperidol 0.5 MG eCW1 ([facility]) Haloperidol 0.5 MG Oral Tablet Haloperidol 0.5 MG 09/25/2020 12:00: 00 AM EDT 1.0 {tablet} active Haloperidol 0.5 MG eCW1 ([facility]) quetiapine 25 MG Oral Tablet [Seroquel] SEROquel 25 MG SEROq uel 25 MG 09/15/2020 12:00:00 AM EDT 1.0 {tablet_at_bedtime} active SEROquel 25 MG eCW1 ([facility]) quetiapine 25 MG Oral Tablet [Seroquel] SEROquel 25 MG SEROq uel 25 MG 09/15/2020 12:00:00 AM EDT 1.0 {tablet_at_bedtime} active SEROquel 25 MG eCW1 ([facility]) quetiapine 25 MG Oral Tablet [Seroquel] SEROquel 25 MG SEROq uel 25 MG 09/15/2020 12:00:00 AM EDT 1.0 {tablet_at_bedtime} active SEROquel 25 MG eCW1 ([facility]) carbamide peroxide 65 MG/ML Otic Solution [Debrox] Debrox 6. 5 % Debrox 6.5 % 08/08/2020 12:00:00 AM EST 5.0 {drops_into_affected_ear} active Debrox 6.5 % eCW1 ([facility]) carbamide peroxide 65 MG/ML Otic Solution [Debrox] Debrox 6. 5 % Debrox 6.5 % 08/08/2020 12:00:00 AM EST 5.0 {drops_into_affected_ear} active Debrox 6.5 % eCW1 ([facility]) carbamide peroxide 65 MG/ML Otic Solution [Debrox] Debrox 6. 5 % Debrox 6.5 % 08/08/2020 12:00:00 AM EST 5.0 {drops_into_affected_ear} active Debrox 6.5 % eCW1 ([facility]) carbamide peroxide 65 MG/ML Otic Solution [Debrox] Debrox 6. 5 % Debrox 6.5 % 08/08/2020 12:00:00 AM EST 5.0 {drops_into_affected_ear} active Debrox 6.5 % eCW1 ([facility]) carbamide peroxide 65 MG/ML Otic Solution [Debrox] Debrox 6. 5 % Debrox 6.5 % 08/08/2020 12:00:00 AM EST 5.0 {drops_into_affected_ear} active Debrox 6.5 % eCW1 ([facility]) carbamide peroxide 65 MG/ML Otic Solution [Debrox] Debrox 6. 5 % Debrox 6.5 % 08/08/2020 12:00:00 AM EST 5.0 {drops_into_affected_ear} active Debrox 6.5 % eCW1 ([facility]) carbamide peroxide 65 MG/ML Otic Solution [Debrox] Debrox 6. 5 % Debrox 6.5 % 08/08/2020 12:00:00 AM EST 5.0 {drops_into_affected_ear} active Debrox 6.5 % eCW1 ([facility]) carbamide peroxide 65 MG/ML Otic Solution [Debrox] Debrox 6. 5 % Debrox 6.5 % 08/08/2020 12:00:00 AM EST 5.0 {drops_into_affected_ear} active Debrox 6.5 % eCW1 ([facility]) carbamide peroxide 65 MG/ML Otic Solution [Debrox] Debrox 6. 5 % Debrox 6.5 % 08/08/2020 12:00:00 AM EST 5.0 {drops_into_affected_ear} active eCW1 ([facility]) carbamide peroxide 65 MG/ML Otic Solution [Debrox] Debrox 6. 5 % Debrox 6.5 % 08/08/2020 12:00:00 AM EST 5.0 {drops_into_affected_ear} active Debrox 6.5 % eCW1 ([facility]) carbamide peroxide 65 MG/ML Otic Solution [Debrox] Debrox 6. 5 % Debrox 6.5 % 08/08/2020 12:00:00 AM EST 5.0 {drops_into_affected_ear} active Debrox 6.5 % eCW1 ([facility]) carbamide peroxide 65 MG/ML Otic Solution [Debrox] Debrox 6. 5 % Debrox 6.5 % 08/08/2020 12:00:00 AM EST 5.0 {drops_into_affected_ear} active Debrox 6.5 % eCW1 ([facility]) carbamide peroxide 65 MG/ML Otic Solution [Debrox] Debrox 6. 5 % Debrox 6.5 % 08/08/2020 12:00:00 AM EST 5.0 {drops_into_affected_ear} active Debrox 6.5 % eCW1 ([facility]) carbamide peroxide 65 MG/ML Otic Solution [Debrox] Debrox 6. 5 % Debrox 6.5 % 08/08/2020 12:00:00 AM EST 5.0 {drops_into_affected_ear} active Debrox 6.5 % eCW1 ([facility]) carbamide peroxide 65 MG/ML Otic Solution [Debrox] Debrox 6. 5 % Debrox 6.5 % 08/08/2020 12:00:00 AM EST 5.0 {drops_into_affected_ear} active Debrox 6.5 % eCW1 ([facility]) carbamide peroxide 65 MG/ML Otic Solution [Debrox] Debrox 6. 5 % Debrox 6.5 % 08/08/2020 12:00:00 AM EST 5.0 {drops_into_affected_ear} active Debrox 6.5 % eCW1 ([facility]) carbamide peroxide 65 MG/ML Otic Solution [Debrox] Debrox 6. 5 % Debrox 6.5 % 08/08/2020 12:00:00 AM EST 5.0 {drops_into_affected_ear} active Debrox 6.5 % eCW1 ([facility]) carbamide peroxide 65 MG/ML Otic Solution [Debrox] Debrox 6. 5 % Debrox 6.5 % 08/08/2020 12:00:00 AM EST 5.0 {drops_into_affected_ear} active Debrox 6.5 % eCW1 ([facility]) carbamide peroxide 65 MG/ML Otic Solution [Debrox] Debrox 6. 5 % Debrox 6.5 % 08/08/2020 12:00:00 AM EST 5.0 {drops_into_affected_ear} active Debrox 6.5 % eCW1 ([facility]) carbamide peroxide 65 MG/ML Otic Solution [Debrox] Debrox 6. 5 % Debrox 6.5 % 08/08/2020 12:00:00 AM EST 5.0 {drops_into_affected_ear} active Debrox 6.5 % eCW1 ([facility]) carbamide peroxide 65 MG/ML Otic Solution [Debrox] Debrox 6. 5 % Debrox 6.5 % 08/08/2020 12:00:00 AM EST 5.0 {drops_into_affected_ear} active Debrox 6.5 % eCW1 ([facility]) carbamide peroxide 65 MG/ML Otic Solution [Debrox] Debrox 6. 5 % Debrox 6.5 % 08/08/2020 12:00:00 AM EST 5.0 {drops_into_affected_ear} active Debrox 6.5 % eCW1 ([facility]) carbamide peroxide 65 MG/ML Otic Solution [Debrox] Debrox 6. 5 % Debrox 6.5 % 08/08/2020 12:00:00 AM EST 5.0 {drops_into_affected_ear} active Debrox 6.5 % eCW1 ([facility]) carbamide peroxide 65 MG/ML Otic Solution [Debrox] Debrox 6. 5 % Debrox 6.5 % 08/08/2020 12:00:00 AM EST 5.0 {drops_into_affected_ear} active Debrox 6.5 % eCW1 ([facility]) Calcium-Vitamin D 600-400 MG-UNIT Calcium-Vitamin D 600-400 MG-UNIT 07/07/2020 12:00:00 AM EST 1.0 {tablet_with_a_meal} active Calcium-Vitamin D 600-400 MG-UNIT eCW1 ([facility]) Calcium-Vitamin D 600-400 MG-UNIT Calcium-Vitamin D 600-400 MG-UNIT 07/07/2020 12:00:00 AM EST 1.0 {tablet_with_a_meal} active Calcium-Vitamin D 600-400 MG-UNIT eCW1 ([facility]) Calcium-Vitamin D 600-400 MG-UNIT Calcium-Vitamin D 600-400 MG-UNIT 07/07/2020 12:00:00 AM EST 1.0 {tablet_with_a_meal} active Calcium-Vitamin D 600-400 MG-UNIT eCW1 ([facility]) Calcium-Vitamin D 600-400 MG-UNIT Calcium-Vitamin D 600-400 MG-UNIT 07/07/2020 12:00:00 AM EST 1.0 {tablet_with_a_meal} active Calcium-Vitamin D 600-400 MG-UNIT eCW1 ([facility]) Calcium-Vitamin D 600-400 MG-UNIT Calcium-Vitamin D 600-400 MG-UNIT 07/07/2020 12:00:00 AM EST 1.0 {tablet_with_a_meal} active Calcium-Vitamin D 600-400 MG-UNIT eCW1 ([facility]) Calcium-Vitamin D 600-400 MG-UNIT Calcium-Vitamin D 600-400 MG-UNIT 07/07/2020 12:00:00 AM EST 1.0 {tablet_with_a_meal} active Calcium-Vitamin D 600-400 MG-UNIT eCW1 ([facility]) Calcium-Vitamin D 600-400 MG-UNIT Calcium-Vitamin D 600-400 MG-UNIT 07/07/2020 12:00:00 AM EST 1.0 {tablet_with_a_meal} active Calcium-Vitamin D 600-400 MG-UNIT eCW1 ([facility]) Calcium-Vitamin D 600-400 MG-UNIT Calcium-Vitamin D 600-400 MG-UNIT 07/07/2020 12:00:00 AM EST 1.0 {tablet_with_a_meal} active Calcium-Vitamin D 600-400 MG-UNIT eCW1 ([facility]) Calcium-Vitamin D 600-400 MG-UNIT Calcium-Vitamin D 600-400 MG-UNIT 07/07/2020 12:00:00 AM EST 1.0 {tablet_with_a_meal} active Calcium-Vitamin D 600-400 MG-UNIT eCW1 ([facility]) Calcium-Vitamin D 600-400 MG-UNIT Calcium-Vitamin D 600-400 MG-UNIT 07/07/2020 12:00:00 AM EST 1.0 {tablet_with_a_meal} active Calcium-Vitamin D 600-400 MG-UNIT eCW1 ([facility]) Calcium-Vitamin D 600-400 MG-UNIT Calcium-Vitamin D 600-400 MG-UNIT 07/07/2020 12:00:00 AM EST 1.0 {tablet_with_a_meal} active Calcium-Vitamin D 600-400 MG-UNIT eCW1 ([facility]) Calcium-Vitamin D 600-400 MG-UNIT Calcium-Vitamin D 600-400 MG-UNIT 07/07/2020 12:00:00 AM EST 1.0 {tablet_with_a_meal} active Calcium-Vitamin D 600-400 MG-UNIT eCW1 ([facility]) Calcium-Vitamin D 600-400 MG-UNIT Calcium-Vitamin D 600-400 MG-UNIT 07/07/2020 12:00:00 AM EST 1.0 {tablet_with_a_meal} active Calcium-Vitamin D 600-400 MG-UNIT eCW1 ([facility]) Calcium-Vitamin D 600-400 MG-UNIT Calcium-Vitamin D 600-400 MG-UNIT 07/07/2020 12:00:00 AM EST 1.0 {tablet_with_a_meal} active Calcium-Vitamin D 600-400 MG-UNIT eCW1 ([facility]) Calcium-Vitamin D 600-400 MG-UNIT Calcium-Vitamin D 600-400 MG-UNIT 07/07/2020 12:00:00 AM EST 1.0 {tablet_with_a_meal} active Calcium-Vitamin D 600-400 MG-UNIT eCW1 ([facility]) Calcium-Vitamin D 600-400 MG-UNIT Calcium-Vitamin D 600-400 MG-UNIT 07/07/2020 12:00:00 AM EST 1.0 {tablet_with_a_meal} active Calcium-Vitamin D 600-400 MG-UNIT eCW1 ([facility]) Calcium-Vitamin D 600-400 MG-UNIT Calcium-Vitamin D 600-400 MG-UNIT 07/07/2020 12:00:00 AM EST 1.0 {tablet_with_a_meal} active eCW1 ([facility]) Calcium-Vitamin D 600-400 MG-UNIT Calcium-Vitamin D 600-400 MG-UNIT 07/07/2020 12:00:00 AM EST 1.0 {tablet_with_a_meal} active Calcium-Vitamin D 600-400 MG-UNIT eCW1 ([facility]) Calcium-Vitamin D 600-400 MG-UNIT Calcium-Vitamin D 600-400 MG-UNIT 07/07/2020 12:00:00 AM EST 1.0 {tablet_with_a_meal} active Calcium-Vitamin D 600-400 MG-UNIT eCW1 ([facility]) Calcium-Vitamin D 600-400 MG-UNIT Calcium-Vitamin D 600-400 MG-UNIT 07/07/2020 12:00:00 AM EST 1.0 {tablet_with_a_meal} active Calcium-Vitamin D 600-400 MG-UNIT eCW1 ([facility]) Calcium-Vitamin D 600-400 MG-UNIT Calcium-Vitamin D 600-400 MG-UNIT 07/07/2020 12:00:00 AM EST 1.0 {tablet_with_a_meal} active Calcium-Vitamin D 600-400 MG-UNIT eCW1 ([facility]) Calcium-Vitamin D 600-400 MG-UNIT Calcium-Vitamin D 600-400 MG-UNIT 07/07/2020 12:00:00 AM EST 1.0 {tablet_with_a_meal} active Calcium-Vitamin D 600-400 MG-UNIT eCW1 ([facility]) Calcium-Vitamin D 600-400 MG-UNIT Calcium-Vitamin D 600-400 MG-UNIT 07/07/2020 12:00:00 AM EST 1.0 {tablet_with_a_meal} active Calcium-Vitamin D 600-400 MG-UNIT eCW1 ([facility]) Calcium-Vitamin D 600-400 MG-UNIT Calcium-Vitamin D 600-400 MG-UNIT 07/07/2020 12:00:00 AM EST 1.0 {tablet_with_a_meal} active Calcium-Vitamin D 600-400 MG-UNIT eCW1 ([facility]) Calcium-Vitamin D 600-400 MG-UNIT Calcium-Vitamin D 600-400 MG-UNIT 07/07/2020 12:00:00 AM EST 1.0 {tablet_with_a_meal} active Calcium-Vitamin D 600-400 MG-UNIT eCW1 ([facility]) Calcium-Vitamin D 600-400 MG-UNIT Calcium-Vitamin D 600-400 MG-UNIT 07/07/2020 12:00:00 AM EST 1.0 {tablet_with_a_meal} active Calcium-Vitamin D 600-400 MG-UNIT eCW1 ([facility]) Calcium-Vitamin D 600-400 MG-UNIT Calcium-Vitamin D 600-400 MG-UNIT 07/07/2020 12:00:00 AM EST 1.0 {tablet_with_a_meal} active Calcium-Vitamin D 600-400 MG-UNIT eCW1 ([facility]) Calcium-Vitamin D 600-400 MG-UNIT Calcium-Vitamin D 600-400 MG-UNIT 07/07/2020 12:00:00 AM EST 1.0 {tablet_with_a_meal} active Calcium-Vitamin D 600-400 MG-UNIT eCW1 ([facility]) Daily Multivitamin 1 UNK 06/12/2020 12:00:00 AM EST active Daily Multivitamin 1 eCW1 ([facility]) Daily Multivitamin 1 UNK 06/12/2020 12:00:00 AM EST active Daily Multivitamin 1 eCW1 ([facility]) Daily Multivitamin 1 UNK 06/12/2020 12:00:00 AM EST active Daily Multivitamin 1 eCW1 ([facility]) Brimonidine tartrate 2 MG/ML Ophthalmic Solution Brimo nidine Tartrate 0.2 % Brimonidine Tartrate 0.2 % 06/12/2020 12:00:00 AM EST 1.0 {drop_into_affected_eye} active Brimoni dine Tartrate 0.2 % eCW1 ([facility]) Daily Multivitamin 1 UNK 06/12/2020 12:00:00 AM EST active Daily Multivitamin 1 eCW1 ([facility]) Daily Multivitamin 1 UNK 06/12/2020 12:00:00 AM EST active Daily Multivitamin 1 eCW1 ([facility]) Daily Multivitamin 1 UNK 06/12/2020 12:00:00 AM EST active Daily Multivitamin 1 eCW1 ([facility]) Daily Multivitamin 1 UNK 06/12/2020 12:00:00 AM EST active Daily Multivitamin 1 eCW1 ([facility]) Brimonidine tartrate 2 MG/ML Ophthalmic Solution Brimo nidine Tartrate 0.2 % Brimonidine Tartrate 0.2 % 06/12/2020 12:00:00 AM EST 1.0 {drop_into_affected_eye} active Brimoni dine Tartrate 0.2 % eCW1 ([facility]) Daily Multivitamin 1 UNK 06/12/2020 12:00:00 AM EST active Daily Multivitamin 1 eCW1 ([facility]) Daily Multivitamin 1 UNK 06/12/2020 12:00:00 AM EST active Daily Multivitamin 1 eCW1 ([facility]) Daily Multivitamin 1 UNK 06/12/2020 12:00:00 AM EST active Daily Multivitamin 1 eCW1 ([facility]) Daily Multivitamin 1 UNK 06/12/2020 12:00:00 AM EST active Daily Multivitamin 1 eCW1 ([facility]) Daily Multivitamin 1 UNK 06/12/2020 12:00:00 AM EST active Daily Multivitamin 1 eCW1 ([facility]) Brimonidine tartrate 2 MG/ML Ophthalmic Solution Brimo nidine Tartrate 0.2 % Brimonidine Tartrate 0.2 % 06/12/2020 12:00:00 AM EST 1.0 {drop_into_affected_eye} active Brimoni dine Tartrate 0.2 % eCW1 ([facility]) Daily Multivitamin 1 UNK 06/12/2020 12:00:00 AM EST active Daily Multivitamin 1 eCW1 ([facility]) Daily Multivitamin 1 UNK 06/12/2020 12:00:00 AM EST active Daily Multivitamin 1 eCW1 ([facility]) Brimonidine tartrate 2 MG/ML Ophthalmic Solution Brimo nidine Tartrate 0.2 % Brimonidine Tartrate 0.2 % 06/12/2020 12:00:00 AM EST 1.0 {drop_into_affected_eye} active Brimoni dine Tartrate 0.2 % eCW1 ([facility]) Daily Multivitamin 1 UNK 06/12/2020 12:00:00 AM EST active Daily Multivitamin 1 eCW1 ([facility]) Daily Multivitamin 1 UNK 06/12/2020 12:00:00 AM EST active Daily Multivitamin 1 eCW1 ([facility]) Daily Multivitamin 1 UNK 06/12/2020 12:00:00 AM EST active Daily Multivitamin 1 eCW1 ([facility]) Daily Multivitamin 1 UNK 06/12/2020 12:00:00 AM EST active Daily Multivitamin 1 eCW1 ([facility]) Daily Multivitamin 1 UNK 06/12/2020 12:00:00 AM EST active Daily Multivitamin 1 eCW1 ([facility]) Brimonidine tartrate 2 MG/ML Ophthalmic Solution Brimo nidine Tartrate 0.2 % Brimonidine Tartrate 0.2 % 06/12/2020 12:00:00 AM EST 1.0 {drop_into_affected_eye} active Brimoni dine Tartrate 0.2 % eCW1 ([facility]) Brimonidine tartrate 2 MG/ML Ophthalmic Solution Brimo nidine Tartrate 0.2 % Brimonidine Tartrate 0.2 % 06/12/2020 12:00:00 AM EST 1.0 {drop_into_affected_eye} active Brimoni dine Tartrate 0.2 % eCW1 ([facility]) Daily Multivitamin 1 UNK 06/12/2020 12:00:00 AM EST active Daily Multivitamin 1 eCW1 ([facility]) Daily Multivitamin 1 UNK 06/12/2020 12:00:00 AM EST active Daily Multivitamin 1 eCW1 ([facility]) Daily Multivitamin 1 UNK 06/12/2020 12:00:00 AM EST active Daily Multivitamin 1 eCW1 ([facility]) Brimonidine tartrate 2 MG/ML Ophthalmic Solution Brimo nidine Tartrate 0.2 % Brimonidine Tartrate 0.2 % 06/12/2020 12:00:00 AM EST 1.0 {drop_into_affected_eye} active Brimoni dine Tartrate 0.2 % eCW1 ([facility]) Daily Multivitamin 1 UNK 06/12/2020 12:00:00 AM EST active Daily Multivitamin 1 eCW1 ([facility]) Brimonidine tartrate 2 MG/ML Ophthalmic Solution Brimo nidine Tartrate 0.2 % Brimonidine Tartrate 0.2 % 06/12/2020 12:00:00 AM EST 1.0 {drop_into_affected_eye} active Brimoni dine Tartrate 0.2 % eCW1 ([facility]) Brimonidine tartrate 2 MG/ML Ophthalmic Solution Brimo nidine Tartrate 0.2 % Brimonidine Tartrate 0.2 % 06/12/2020 12:00:00 AM EST 1.0 {drop_into_affected_eye} active Brimoni dine Tartrate 0.2 % eCW1 ([facility]) Brimonidine tartrate 2 MG/ML Ophthalmic Solution Brimo nidine Tartrate 0.2 % Brimonidine Tartrate 0.2 % 06/12/2020 12:00:00 AM EST 1.0 {drop_into_affected_eye} active Brimoni dine Tartrate 0.2 % eCW1 ([facility]) Daily Multivitamin 1 UNK 06/12/2020 12:00:00 AM EST active Daily Multivitamin 1 eCW1 ([facility]) Daily Multivitamin 1 UNK 06/12/2020 12:00:00 AM EST active Daily Multivitamin 1 eCW1 ([facility]) Daily Multivitamin 1 UNK 06/12/2020 12:00:00 AM EST active Daily Multivitamin 1 eCW1 ([facility]) Daily Multivitamin 1 UNK 06/12/2020 12:00:00 AM EST active Daily Multivitamin 1 eCW1 ([facility]) Daily Multivitamin 1 UNK 06/12/2020 12:00:00 AM EST active eCW1 ([facility]) Daily Multivitamin 1 UNK 06/12/2020 12:00:00 AM EST active Daily Multivitamin 1 eCW1 ([facility]) Daily Multivitamin 1 UNK 06/12/2020 12:00:00 AM EST active Daily Multivitamin 1 eCW1 ([facility]) Daily Multivitamin 1 UNK 06/12/2020 12:00:00 AM EST active Daily Multivitamin 1 eCW1 ([facility]) Daily Multivitamin 1 UNK 06/12/2020 12:00:00 AM EST active Daily Multivitamin 1 eCW1 ([facility]) Brimonidine tartrate 2 MG/ML Ophthalmic Solution Brimo nidine Tartrate 0.2 % Brimonidine Tartrate 0.2 % 06/12/2020 12:00:00 AM EST 1.0 {drop_into_affected_eye} active Brimoni dine Tartrate 0.2 % eCW1 ([facility]) Daily Multivitamin 1 UNK 06/12/2020 12:00:00 AM EST active Daily Multivitamin 1 eCW1 ([facility]) Daily Multivitamin 1 UNK 06/12/2020 12:00:00 AM EST active Daily Multivitamin 1 eCW1 ([facility]) Brimonidine tartrate 2 MG/ML Ophthalmic Solution Brimo nidine Tartrate 0.2 % Brimonidine Tartrate 0.2 % 06/12/2020 12:00:00 AM EST 1.0 {drop_into_affected_eye} active Brimoni dine Tartrate 0.2 % eCW1 ([facility]) Brimonidine tartrate 2 MG/ML Ophthalmic Solution Brimo nidine Tartrate 0.2 % Brimonidine Tartrate 0.2 % 06/12/2020 12:00:00 AM EST 1.0 {drop_into_affected_eye} active Brimoni dine Tartrate 0.2 % eCW1 ([facility]) Daily Multivitamin 1 UNK 06/12/2020 12:00:00 AM EST active Daily Multivitamin 1 eCW1 ([facility]) Brimonidine tartrate 2 MG/ML Ophthalmic Solution Brimo nidine Tartrate 0.2 % Brimonidine Tartrate 0.2 % 06/12/2020 12:00:00 AM EST 1.0 {drop_into_affected_eye} active Brimoni dine Tartrate 0.2 % eCW1 ([facility]) Daily Multivitamin 1 UNK 06/12/2020 12:00:00 AM EST active Daily Multivitamin 1 eCW1 ([facility]) Daily Multivitamin 1 UNK 06/12/2020 12:00:00 AM EST active Daily Multivitamin 1 eCW1 ([facility]) [facility] 16FR/40CM 1 UNK 04/05/2020 12:00:00 AM EST active [facility] 16FR/40CM 1 eCW1 ([facility]) [facility] 16FR/40CM 1 UNK 04/05/2020 12:00:00 AM EST active [facility] 16FR/40CM 1 eCW1 ([facility]) [facility] 16FR/40CM 1 UNK 04/05/2020 12:00:00 AM EST active [facility] 16FR/40CM 1 eCW1 ([facility]) [facility] 16FR/40CM 1 UNK 04/05/2020 12:00:00 AM EST active [facility] 16FR/40CM 1 eCW1 ([facility]) [facility] 16FR/40CM 1 UNK 04/05/2020 12:00:00 AM EST active [facility] 16FR/40CM 1 eCW1 ([facility]) [facility] 16FR/40CM 1 UNK 04/05/2020 12:00:00 AM EST active [facility] 16FR/40CM 1 eCW1 ([facility]) [facility] 16FR/40CM 1 UNK 04/05/2020 12:00:00 AM EST active [facility] 16FR/40CM 1 eCW1 ([facility]) [facility] 16FR/40CM 1 UNK 04/05/2020 12:00:00 AM EST active [facility] 16FR/40CM 1 eCW1 ([facility]) [facility] 16FR/40CM 1 UNK 04/05/2020 12:00:00 AM EST active [facility] 16FR/40CM 1 eCW1 ([facility]) [facility] 16FR/40CM 1 UNK 04/05/2020 12:00:00 AM EST active [facility] 16FR/40CM 1 eCW1 ([facility]) Lidocaine 4 % Lidocaine 4 % 04/04/2020 12:00:00 AM EST active Lidocaine 4 % eCW1 ([facility]) Lidocaine 4 % Lidocaine 4 % 04/04/2020 12:00:00 AM EST active Lidocaine 4 % eCW1 ([facility]) Lidocaine 4 % Lidocaine 4 % 04/04/2020 12:00:00 AM EST active Lidocaine 4 % eCW1 ([facility]) Lidocaine 4 % Lidocaine 4 % 04/04/2020 12:00:00 AM EST active Lidocaine 4 % eCW1 ([facility]) Lidocaine 4 % Lidocaine 4 % 04/04/2020 12:00:00 AM EST active Lidocaine 4 % eCW1 ([facility]) Lidocaine 4 % Lidocaine 4 % 04/04/2020 12:00:00 AM EST active Lidocaine 4 % eCW1 ([facility]) Lidocaine 4 % Lidocaine 4 % 04/04/2020 12:00:00 AM EST active Lidocaine 4 % eCW1 ([facility]) Lidocaine 4 % Lidocaine 4 % 04/04/2020 12:00:00 AM EST active Lidocaine 4 % eCW1 ([facility]) Lidocaine 4 % Lidocaine 4 % 04/04/2020 12:00:00 AM EST active Lidocaine 4 % eCW1 ([facility]) Lidocaine 4 % Lidocaine 4 % 04/04/2020 12:00:00 AM EST active Lidocaine 4 % eCW1 ([facility]) Nystatin 100 UNT/MG Topical Powder Nystatin 726545 UNI T/GM Nystatin 866411 UNIT/GM 03/27/2020 12:00:00 AM EDT 1.0 {application_to_affected_area } active Nystatin 221012 UNIT/GM eCW1 ([facility]) Nystatin 100 UNT/MG Topical Powder Nystatin 662778 UNI T/GM Nystatin 643084 UNIT/GM 03/27/2020 12:00:00 AM EDT 1.0 {application_to_affected_area } active Nystatin 639597 UNIT/GM eCW1 ([facility]) Nystatin 100 UNT/MG Topical Powder Nystatin 949618 UNI T/GM Nystatin 705559 UNIT/GM 03/27/2020 12:00:00 AM EDT 1.0 {application_to_affected_area } active Nystatin 720721 UNIT/GM eCW1 ([facility]) NITROFURANTOIN, MACROCRYSTALS 50 MG Oral Capsule Nitrofurantoin Macrocrystal 50 MG Nitrofurantoin Macrocrystal 50 MG 03/17/2020 12:00:00 AM EDT active Nitrofurantoin Macrocrystal 50 M G eCW1 ([facility]) NITROFURANTOIN, MACROCRYSTALS 50 MG Oral Capsule Nitrofurantoin Macrocrystal 50 MG Nitrofurantoin Macrocrystal 50 MG 03/17/2020 12:00:00 AM EDT active Nitrofurantoin Macrocrystal 50 M G eCW1 ([facility]) NITROFURANTOIN, MACROCRYSTALS 50 MG Oral Capsule Nitrofurantoin Macrocrystal 50 MG Nitrofurantoin Macrocrystal 50 MG 03/17/2020 12:00:00 AM EDT active Nitrofurantoin Macrocrystal 50 M G eCW1 ([facility]) NITROFURANTOIN, MACROCRYSTALS 50 MG Oral Capsule Nitrofurantoin Macrocrystal 50 MG Nitrofurantoin Macrocrystal 50 MG 03/17/2020 12:00:00 AM EDT active Nitrofurantoin Macrocrystal 50 M G eCW1 ([facility]) NITROFURANTOIN, MACROCRYSTALS 50 MG Oral Capsule Nitrofurantoin Macrocrystal 50 MG Nitrofurantoin Macrocrystal 50 MG 03/17/2020 12:00:00 AM EDT active Nitrofurantoin Macrocrystal 50 M G eCW1 ([facility]) NITROFURANTOIN, MACROCRYSTALS 50 MG Oral Capsule Nitrofurantoin Macrocrystal 50 MG Nitrofurantoin Macrocrystal 50 MG 03/17/2020 12:00:00 AM EDT active Nitrofurantoin Macrocrystal 50 M G eCW1 ([facility]) NITROFURANTOIN, MACROCRYSTALS 50 MG Oral Capsule Nitrofurantoin Macrocrystal 50 MG Nitrofurantoin Macrocrystal 50 MG 03/17/2020 12:00:00 AM EDT active Nitrofurantoin Macrocrystal 50 M G eCW1 ([facility]) NITROFURANTOIN, MACROCRYSTALS 50 MG Oral Capsule Nitrofurantoin Macrocrystal 50 MG Nitrofurantoin Macrocrystal 50 MG 03/17/2020 12:00:00 AM EDT active Nitrofurantoin Macrocrystal 50 M G eCW1 ([facility]) NITROFURANTOIN, MACROCRYSTALS 50 MG Oral Capsule Nitrofurantoin Macrocrystal 50 MG Nitrofurantoin Macrocrystal 50 MG 03/17/2020 12:00:00 AM EDT active Nitrofurantoin Macrocrystal 50 M G eCW1 ([facility]) NITROFURANTOIN, MACROCRYSTALS 50 MG Oral Capsule Nitrofurantoin Macrocrystal 50 MG Nitrofurantoin Macrocrystal 50 MG 03/17/2020 12:00:00 AM EDT active Nitrofurantoin Macrocrystal 50 M G eCW1 ([facility]) NITROFURANTOIN, MACROCRYSTALS 50 MG Oral Capsule Nitrofurantoin Macrocrystal 50 MG Nitrofurantoin Macrocrystal 50 MG 03/17/2020 12:00:00 AM EDT active Nitrofurantoin Macrocrystal 50 M G eCW1 ([facility]) NITROFURANTOIN, MACROCRYSTALS 50 MG Oral Capsule Nitrofurantoin Macrocrystal 50 MG Nitrofurantoin Macrocrystal 50 MG 03/17/2020 12:00:00 AM EDT active Nitrofurantoin Macrocrystal 50 M G eCW1 ([facility]) NITROFURANTOIN, MACROCRYSTALS 50 MG Oral Capsule Nitrofurantoin Macrocrystal 50 MG Nitrofurantoin Macrocrystal 50 MG 03/17/2020 12:00:00 AM EDT active Nitrofurantoin Macrocrystal 50 M G eCW1 ([facility]) NITROFURANTOIN, MACROCRYSTALS 50 MG Oral Capsule Nitrofurantoin Macrocrystal 50 MG Nitrofurantoin Macrocrystal 50 MG 03/17/2020 12:00:00 AM EDT active Nitrofurantoin Macrocrystal 50 M G eCW1 ([facility]) NITROFURANTOIN, MACROCRYSTALS 50 MG Oral Capsule Nitrofurantoin Macrocrystal 50 MG Nitrofurantoin Macrocrystal 50 MG 03/17/2020 12:00:00 AM EDT active Nitrofurantoin Macrocrystal 50 M G eCW1 ([facility]) NITROFURANTOIN, MACROCRYSTALS 50 MG Oral Capsule Nitrofurantoin Macrocrystal 50 MG Nitrofurantoin Macrocrystal 50 MG 03/17/2020 12:00:00 AM EDT active Nitrofurantoin Macrocrystal 50 M G eCW1 ([facility]) NITROFURANTOIN, MACROCRYSTALS 50 MG Oral Capsule Nitrofurantoin Macrocrystal 50 MG Nitrofurantoin Macrocrystal 50 MG 03/17/2020 12:00:00 AM EDT active Nitrofurantoin Macrocrystal 50 M G eCW1 ([facility]) NITROFURANTOIN, MACROCRYSTALS 50 MG Oral Capsule Nitrofurantoin Macrocrystal 50 MG Nitrofurantoin Macrocrystal 50 MG 03/17/2020 12:00:00 AM EDT active Nitrofurantoin Macrocrystal 50 M G eCW1 ([facility]) NITROFURANTOIN, MACROCRYSTALS 50 MG Oral Capsule Nitrofurantoin Macrocrystal 50 MG Nitrofurantoin Macrocrystal 50 MG 03/17/2020 12:00:00 AM EDT active eCW1 ([facility]) NITROFURANTOIN, MACROCRYSTALS 50 MG Oral Capsule Nitrofurantoin Macrocrystal 50 MG Nitrofurantoin Macrocrystal 50 MG 03/17/2020 12:00:00 AM EDT active Nitrofurantoin Macrocrystal 50 M G eCW1 ([facility]) NITROFURANTOIN, MACROCRYSTALS 50 MG Oral Capsule Nitrofurantoin Macrocrystal 50 MG Nitrofurantoin Macrocrystal 50 MG 03/17/2020 12:00:00 AM EDT active Nitrofurantoin Macrocrystal 50 M G eCW1 ([facility]) NITROFURANTOIN, MACROCRYSTALS 50 MG Oral Capsule Nitrofurantoin Macrocrystal 50 MG Nitrofurantoin Macrocrystal 50 MG 03/17/2020 12:00:00 AM EDT active Nitrofurantoin Macrocrystal 50 M G eCW1 ([facility]) NITROFURANTOIN, MACROCRYSTALS 50 MG Oral Capsule Nitrofurantoin Macrocrystal 50 MG Nitrofurantoin Macrocrystal 50 MG 03/17/2020 12:00:00 AM EDT active Nitrofurantoin Macrocrystal 50 M G eCW1 ([facility]) NITROFURANTOIN, MACROCRYSTALS 50 MG Oral Capsule Nitrofurantoin Macrocrystal 50 MG Nitrofurantoin Macrocrystal 50 MG 03/17/2020 12:00:00 AM EDT active Nitrofurantoin Macrocrystal 50 M G eCW1 ([facility]) NITROFURANTOIN, MACROCRYSTALS 50 MG Oral Capsule Nitrofurantoin Macrocrystal 50 MG Nitrofurantoin Macrocrystal 50 MG 03/17/2020 12:00:00 AM EDT active Nitrofurantoin Macrocrystal 50 M G eCW1 ([facility]) NITROFURANTOIN, MACROCRYSTALS 50 MG Oral Capsule Nitrofurantoin Macrocrystal 50 MG Nitrofurantoin Macrocrystal 50 MG 03/17/2020 12:00:00 AM EDT active Nitrofurantoin Macrocrystal 50 M G eCW1 ([facility]) NITROFURANTOIN, MACROCRYSTALS 50 MG Oral Capsule Nitrofurantoin Macrocrystal 50 MG Nitrofurantoin Macrocrystal 50 MG 03/17/2020 12:00:00 AM EDT active Nitrofurantoin Macrocrystal 50 M G eCW1 ([facility]) NITROFURANTOIN, MACROCRYSTALS 50 MG Oral Capsule Nitrofurantoin Macrocrystal 50 MG Nitrofurantoin Macrocrystal 50 MG 03/17/2020 12:00:00 AM EDT active Nitrofurantoin Macrocrystal 50 M G eCW1 ([facility]) NITROFURANTOIN, MACROCRYSTALS 50 MG Oral Capsule Nitrofurantoin Macrocrystal 50 MG Nitrofurantoin Macrocrystal 50 MG 03/17/2020 12:00:00 AM EDT active Nitrofurantoin Macrocrystal 50 M G eCW1 ([facility]) NITROFURANTOIN, MACROCRYSTALS 50 MG Oral Capsule Nitrofurantoin Macrocrystal 50 MG Nitrofurantoin Macrocrystal 50 MG 03/17/2020 12:00:00 AM EDT active Nitrofurantoin Macrocrystal 50 M G eCW1 ([facility]) NITROFURANTOIN, MACROCRYSTALS 50 MG Oral Capsule Nitrofurantoin Macrocrystal 50 MG Nitrofurantoin Macrocrystal 50 MG 03/17/2020 12:00:00 AM EDT active Nitrofurantoin Macrocrystal 50 M G eCW1 ([facility]) NITROFURANTOIN, MACROCRYSTALS 50 MG Oral Capsule Nitrofurantoin Macrocrystal 50 MG Nitrofurantoin Macrocrystal 50 MG 03/17/2020 12:00:00 AM EDT active Nitrofurantoin Macrocrystal 50 M G eCW1 ([facility]) NITROFURANTOIN, MACROCRYSTALS 50 MG Oral Capsule Nitrofurantoin Macrocrystal 50 MG Nitrofurantoin Macrocrystal 50 MG 03/17/2020 12:00:00 AM EDT active Nitrofurantoin Macrocrystal 50 M G eCW1 ([facility]) NITROFURANTOIN, MACROCRYSTALS 50 MG Oral Capsule Nitrofurantoin Macrocrystal 50 MG Nitrofurantoin Macrocrystal 50 MG 03/17/2020 12:00:00 AM EDT active Nitrofurantoin Macrocrystal 50 M G eCW1 ([facility]) NITROFURANTOIN, MACROCRYSTALS 50 MG Oral Capsule Nitrofurantoin Macrocrystal 50 MG Nitrofurantoin Macrocrystal 50 MG 03/17/2020 12:00:00 AM EDT active Nitrofurantoin Macrocrystal 50 M G eCW1 ([facility]) NITROFURANTOIN, MACROCRYSTALS 50 MG Oral Capsule Nitrofurantoin Macrocrystal 50 MG Nitrofurantoin Macrocrystal 50 MG 03/17/2020 12:00:00 AM EDT active Nitrofurantoin Macrocrystal 50 M G eCW1 ([facility]) NITROFURANTOIN, MACROCRYSTALS 50 MG Oral Capsule Nitrofurantoin Macrocrystal 50 MG Nitrofurantoin Macrocrystal 50 MG 03/17/2020 12:00:00 AM EDT active Nitrofurantoin Macrocrystal 50 M G eCW1 ([facility]) NITROFURANTOIN, MACROCRYSTALS 50 MG Oral Capsule Nitrofurantoin Macrocrystal 50 MG Nitrofurantoin Macrocrystal 50 MG 03/17/2020 12:00:00 AM EDT active Nitrofurantoin Macrocrystal 50 M G eCW1 ([facility]) NITROFURANTOIN, MACROCRYSTALS 50 MG Oral Capsule Nitrofurantoin Macrocrystal 50 MG Nitrofurantoin Macrocrystal 50 MG 03/17/2020 12:00:00 AM EDT active Nitrofurantoin Macrocrystal 50 M G eCW1 ([facility]) NITROFURANTOIN, MACROCRYSTALS 50 MG Oral Capsule Nitrofurantoin Macrocrystal 50 MG Nitrofurantoin Macrocrystal 50 MG 03/17/2020 12:00:00 AM EDT active Nitrofurantoin Macrocrystal 50 M G eCW1 ([facility]) NITROFURANTOIN, MACROCRYSTALS 50 MG Oral Capsule Nitrofurantoin Macrocrystal 50 MG Nitrofurantoin Macrocrystal 50 MG 03/17/2020 12:00:00 AM EDT active Nitrofurantoin Macrocrystal 50 M G eCW1 ([facility]) NITROFURANTOIN, MACROCRYSTALS 50 MG Oral Capsule Nitrofurantoin Macrocrystal 50 MG Nitrofurantoin Macrocrystal 50 MG 03/17/2020 12:00:00 AM EDT active Nitrofurantoin Macrocrystal 50 M G eCW1 ([facility]) NITROFURANTOIN, MACROCRYSTALS 50 MG Oral Capsule Nitrofurantoin Macrocrystal 50 MG Nitrofurantoin Macrocrystal 50 MG 03/17/2020 12:00:00 AM EDT active Nitrofurantoin Macrocrystal 50 M G eCW1 ([facility]) NITROFURANTOIN, MACROCRYSTALS 50 MG Oral Capsule Nitrofurantoin Macrocrystal 50 MG Nitrofurantoin Macrocrystal 50 MG 03/17/2020 12:00:00 AM EDT active Nitrofurantoin Macrocrystal 50 M G eCW1 ([facility]) NITROFURANTOIN, MACROCRYSTALS 50 MG Oral Capsule Nitrofurantoin Macrocrystal 50 MG Nitrofurantoin Macrocrystal 50 MG 03/17/2020 12:00:00 AM EDT active Nitrofurantoin Macrocrystal 50 M G eCW1 ([facility]) NITROFURANTOIN, MACROCRYSTALS 50 MG Oral Capsule Nitrofurantoin Macrocrystal 50 MG Nitrofurantoin Macrocrystal 50 MG 03/17/2020 12:00:00 AM EDT active Nitrofurantoin Macrocrystal 50 M G eCW1 ([facility]) NITROFURANTOIN, MACROCRYSTALS 50 MG Oral Capsule Nitrofurantoin Macrocrystal 50 MG Nitrofurantoin Macrocrystal 50 MG 03/17/2020 12:00:00 AM EDT active Nitrofurantoin Macrocrystal 50 M G eCW1 ([facility]) NITROFURANTOIN, MACROCRYSTALS 50 MG Oral Capsule Nitrofurantoin Macrocrystal 50 MG Nitrofurantoin Macrocrystal 50 MG 03/17/2020 12:00:00 AM EDT active Nitrofurantoin Macrocrystal 50 M G eCW1 ([facility]) NITROFURANTOIN, MACROCRYSTALS 50 MG Oral Capsule Nitrofurantoin Macrocrystal 50 MG Nitrofurantoin Macrocrystal 50 MG 03/17/2020 12:00:00 AM EDT active Nitrofurantoin Macrocrystal 50 M G eCW1 ([facility]) NITROFURANTOIN, MACROCRYSTALS 50 MG Oral Capsule Nitrofurantoin Macrocrystal 50 MG Nitrofurantoin Macrocrystal 50 MG 03/17/2020 12:00:00 AM EDT active Nitrofurantoin Macrocrystal 50 M G eCW1 ([facility]) NITROFURANTOIN, MACROCRYSTALS 50 MG Oral Capsule Nitrofurantoin Macrocrystal 50 MG Nitrofurantoin Macrocrystal 50 MG 03/17/2020 12:00:00 AM EDT active Nitrofurantoin Macrocrystal 50 M G eCW1 ([facility]) Insurance Providers Payer name Policy type / Coverage type Policy ID Covered constitution party ID Covered constitution party's relationship to alarcon Policy [place] Plan Information Medicare [place] Primary [id number] Self [id number] Medicare [place] Medicare Primary [id number] Self [id number] Medicare [place] Medicare Primary [id number] Self [id number] FOR LIFE [id number] SP [id number] EMEDNY [id number] SP [id number] OTHER [id number] UNK2 [id number] MEDICAID [id number] SP [id number] MEDICAID M [id number] S [id number] FOR LIFE O [id number] S [id number] MEDICARE C [id number] S [id number] ANSI-Commercial [id number] ANS-Medicare Part B [id number] ANS-Medicare Part B [id number] ANSI-Commercial [id number] ANSI-Commercial [id number] ANSI-Medicare Part B [id number] ANSI-Medicare Part B [id number] ANSI-Commercial [id number] ANSI-Medicare Part B [id number] ANSI-Commercial [id number] ANSI-Commercial [id number] ANSI-Medicare Part B [id number] ANSI-Commercial [id number] ANSI-Medicare Part B [id number] ANSI-Medicare Part B [id number] ANSI-Commercial [id number] ANSI-Medicare Part B [id number] ANSI-Commercial [id number] ANSI-Commercial [id number] ANSI-Medicare Part B [id number] ANSI-Commercial [id number] ANSI-Medicare Part B [id number] ANSI-Commercial [id number] ANSI-Medicare Part B [id number] [facility] Part B [id number] Self [id number] ANSI-Medicare Part B [id number] ANSI-Commercial [id number] ANSI-Medicare Part B [id number] ANSI-Commercial [id number] ANSI-Medicare Part B [id number] ANSI-Commercial [id number] ANSI-Medicare Part B [id number] ANSI-Commercial [id number] ANSI-Medicare Part B [id number] ANSI-Commercial [id number] ANSI-Commercial [id number]-6s9xj028c156 ANSI-Medicare Part B [id number]-8442-dhgh-q79zhr2jmw77 d8x88i23-124p-3274-dfwx-t89vij6fob04 ANSI-Commercial 3x8710dl-l454-0785-9r13-7818z877m404 1t6693ne-m925-8914-5c44-0803b467d237 ANSI-Medicare Part B [id number]-u2rx-0821-s488-rn48842o4048 274837n0-g5pg-2320-f131-ti68983i5470 ANSI-Commercial i4971468-v1z0-8dws-e068-18q4ts3o2wu5 s5855402-p5h7-3ztv-j061-29b2mo5h8sb8 ANSI-Medicare Part B [id number]-u0fi-2537-o35m-87r804o11507 k217076w-r4an-0512-k53a-64a338z20595 ANSI-Commercial 3623n163-5xs0-8f0s-ro7u-803i1le53p0o 7327k032-8ct5-6c1k-zw4k-533g1lz61v0o ANSI-Medicare Part B k84bk1ax-65fl-21su-0og5-j573h52w2688 k61jm9my-00ao-20bm-5ea6-o590r37v2326 For Life [facility] Part B [id number] Self [id number] ANSI-Medicare Part B 358g28g0-y3d2-39u8-99o8-cza0vug14c9e 831p56v2-n4d0-06j0-78s9-taq6jqw79l0z ANSI-Commercial 1l3043jl-z1f4-4224-1043-0g08r57q1326 1j3638ah-f1f8-3295-6119-9q08n22p9228 [facility] Part B [id number] Self [id number] ANSI-Medicare Part B [id number]-hz37-ttz61efh06r6 w1150927-sta0-6v39-lp50-rem67flh33k6 ANSI-Commercial d6ht8987-74gu-7q01-6nh5-4338eb7s657f p1by3704-34fi-2x64-7lq6-0367su3u376p ANSI-Commercial cy74pwx0-r725-21d8-gnzi-q851g7n08781 xj35ubp1-m681-82d8-lchm-j476v2n68644 ANSI-Medicare Part B p801mkv8-c62k-1lr2-jcyc-1545xi4696j3 y282tga8-e41h-1hm5-wipu-4846fs7597j4 ANSI-Commercial 65s98062-9g20-0891-jx4r-3188qn493uy9 07c75394-0a86-4248-cu6q-2137jx387js0 ANSI-Medicare Part B [id number]-3925-64m6-187jgi4454f8 066y9e50-951r-5724-09w4-453ttn6123h3 ANSI-Medicare Part B [id number]-6136-9jzm-2cjg-363xvi2s537x 11i2957m-9502-4xhd-7vtu-951fgx4n024f ANSI-Commercial n20o7zdw-508y-900y-5l42-daee28054q62 j53s2xxb-708t-046e-3k36-ebrq36808p07 ANSI-Medicare Part B [id number]-wp12-52uo79209z78 4gx0319b-zxk0-9wt8-za59-43er15197m71 ANSI-Commercial 8wm3769x-z2xp-79xk-3446-m87y040oi964 7tb1519x-m5rn-44wx-3344-h33i661sm460 [facility] MEDICAID [id number] SP [id number] C REPLACED BY [facility] [id number] SP [id number] FOR LIFE [id number] SP [id number] MEDICARE [id number] SP [id number] Problems, Conditions, and Diagnoses Code Display Name Description Problem Type Effective Dates Data Source(s) 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, uncomplicated Mu lti-infarct dementia, uncomplicated Problem 11/22/2020 12:00:00 AM EDT [facility] ([facility], ) I65.23 Carotid artery occlusion Carotid artery occlusion Prob rosaura 10/04/2020 12:00:00 AM EDT [facility] ([facility], ) 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 Problem 12:00:00 AM EDT [facility] ([facility], ) G31.83 Diffuse Lewy body disease Diffuse Lewy body disease Pr oblem 10/04/2020 12:00:00 AM EDT [facility] ([facility] ) R44.1 [id number] Visual hallucinations Problem 09/15/2020 12: 00:00 AM EDT eCW1 ([facility]) F03.90 [id number] Unspecified dementia without beh avioral disturbance Problem 09/06/2020 12:00:00 AM EDT eCW1 ([facility]) R44.3 [id number] Hallucinations, unspecified Problem 09/07/19 12:00:00 AM EDT eCW1 ([facility]) Surgeries/Procedures Procedure Description Date Indications Data Source(s) OFFICE OUTPATIENT VISIT 25 MINUTES 11/22/2020 12:00:00 AM EDT [facility] ([facility], ) OFFICE OUTPATIENT NEW 45 MINUTES 10/04/2020 12:00:00 A M EDT [facility] ([facility]) Results ID Date Data Source 164 03/05/2021 12:00:00 AM EDT [facility] Name Value Range Interpretation Code Description Data Dayna rce(s) Supporting Document(s) SARS coronavirus 2 Ag NEGATIVE [facility] This lab was ordered by [facility] and reported by [facility]. ID Date Data Source 165 02/28/2021 12:00:00 AM EDT [facility] Name Value Range Interpretation Code Description Data Dayna rce(s) Supporting Document(s) SARS coronavirus 2 Ag NEGATIVE [facility] This lab was ordered by [facility] and reported by [facility]. ID Date Data Source [id number] 02/21/2021 12:00:00 AM EDT [facility] Name Value Range Interpretation Code Description Data Dayna rce(s) Supporting Document(s) SARS coronavirus 2 Ag NEGATIVE [facility] This lab was ordered by [facility] and reported by [facility]. ID Date Data Source [id number] 02/14/2021 03:00:00 PM EDT [facility] Name Value Range Interpretation Code Description Data Dayna rce(s) Supporting Document(s) SARS coronavirus 2 Ag [facility] This lab was ordered by [facility] and reported by [facility]. ID Date Data Source [id number] 02/12/2021 12:00:00 AM EDT [facility] Name Value Range Interpretation Code Description Data Dayna rce(s) Supporting Document(s) SARS-CoV2 Rapid Antigen Negative [facility] This lab was ordered by [facility] and reported by [facility]. ID Date Data Source [id number] 02/11/2021 12:00:00 AM EDT [facility] Name Value Range Interpretation Code Description Data Dayna rce(s) Supporting Document(s) SARS-CoV2 Rapid Antigen Negative [facility] This lab was ordered by [facility] and reported by [facility]. ID Date Data Source [id number] 02/09/2021 11:35:00 AM EDT [facility] Name Value Range Interpretation Code Description Data Dayna rce(s) Supporting Document(s) SARS coronavirus 2 RNA [Presence] in Res piratory specimen by ZACHARIAH with probe detection NEGATIVE [facility] This lab was ordered by [facility] a nd reported by [facility]. ID Date Data Source [id number] 02/08/2021 12:00:00 AM EDT [facility] Name Value Range Interpretation Code Description Data Dayna rce(s) Supporting Document(s) SARS-CoV2 Rapid Antigen Negative [facility] This lab was ordered by [facility] and reported by [facility]. ID Date Data Source [id number] 02/07/2021 12:00:00 AM EDT [facility] Name Value Range Interpretation Code Description Data Dayna rce(s) Supporting Document(s) SARS coronavirus 2 Ag NEGATIVE [facility] This lab was ordered by [facility] and reported by [facility]. ID Date Data Source [id number] 01/30/2021 08:22:00 AM EDT [facility] Name Value Range Interpretation Code Description Data Dayna rce(s) Supporting Document(s) SARS coronavirus 2 RNA [Presence] in Res piratory specimen by ZACHARIAH with probe detection NEGATIVE [facility] This lab was ordered by [facility] a nd reported by [facility]. ID Date Data Source [id number] 01/16/2021 05:26:00 PM EDT [facility] Name Value Range Interpretation Code Description Data Dayna rce(s) Supporting Document(s) SARS coronavirus 2 RNA [Presence] in Res piratory specimen by ZACHARIAH with probe detection NEGATIVE [facility] This lab was ordered by [facility] a nd reported by [facility]. ID Date Data Source [id number] 01/09/2021 07:18:00 PM EDT [facility] Name Value Range Interpretation Code Description Data Dayna rce(s) Supporting Document(s) SARS coronavirus 2 RNA [Presence] in Res piratory specimen by ZACHARIAH with probe detection NEGATIVE [facility] This lab was ordered by [facility] a nd reported by [facility]. ID Date Data Source CBC with Differential 12/27/2020 12:00:00 AM EDT eCW1 ([facility]) Name Value Range Interpretation Code Description Data Dayna rce(s) Supporting Document(s) 9.1 4.0-10.0 WHITE BLOOD COUNT eCW1 ([facility]) 3.99 4.00-5.40 RED BLOOD COUNT eCW1 ([facility]) 12.5 12.0-15.5 HEMOGLOBIN eCW1 ([facility]) 31.3 27.0-33.0 MEAN CORPUSCULAR HEMOGLOB IN eCW1 ([facility]) 95.5 80.0-96.0 MEAN CORPUSCULAR VOLUME e CW1 ([facility]) 38.1 36.0-47.0 HEMATOCRIT eCW1 ([facility]) 13.9 11.5-14.5 RED CELL DISTRIBUTION WID TH eCW1 ([facility]) 32.8 32.0-36.5 MEAN CORPUSCULAR HGB CONC eCW1 ([facility]) 307 150-450 PLATELET COUNT, AUTOMATED eCW1 ([facility]) 47.6 24.0-44.0 LYMPH % eCW1 ([facility]) 1.9 0.0-3.0 EOS % eCW1 ([facility]) 8.6 2.0-8.0 MONO % eCW1 ([facility]) 41.3 36.0-66.0 NEUTROPHILS % eCW1 ([facility]) 3.7 1.5-8.5 NEUTROPHILS # eCW1 ([facility]) 0.3 0.0-1.0 BASO % eCW1 ([facility]) 4.3 1.5-5.0 LYMPH # eCW1 ([facility]) 0.0 0.0-0.2 BASO # eCW1 ([facility]) 0.2 0.0-0.5 EOS # eCW1 ([facility]) 0.8 0.0-0.8 MONO # eCW1 ([facility]) ID Date Data Source [id number] 12/27/2020 12:00:00 AM EDT eCW1 ([facility]) Name Value Range Interpretation Code Description Data Dayna rce(s) Supporting Document(s) 88 <450 NT-PRO BNP eCW1 ([facility]) ID Date Data Source [facility] Ankle, complete 12/27/2020 12:00:00 AM EDT eCW1 ([facility]) Name Value Range Interpretation Code Description Data Dayna rce(s) Supporting Document(s) [facility] Ankle, complete eCW1 ([facility]) ID Date Data Source [id number] 07/17/2020 02:00:00 PM EST [facility] Name Value Range Interpretation Code Description Data Dayna rce(s) Supporting Document(s) SARS coronavirus 2 RNA Not Detected [facility] This lab was ordered by [facility] and reported by [facility]. ID Date Data Source [id number] 07/10/2020 06:20:00 AM EST [facility] Name Value Range Interpretation Code Description Data Dayna rce(s) Supporting Document(s) SARS coronavirus 2 RNA Not Detected [facility] [place] This lab was ordered by [facility] and reported by [facility]. ID Date Data Source [id number] 07/03/2020 09:00:00 AM EST [facility] Name Value Range Interpretation Code Description Data Dayna rce(s) Supporting Document(s) SARS coronavirus 2 RNA Not Detected [facility] [place] This lab was ordered by [facility] and reported by [facility]. ID Date Data Source [id number] 06/26/2020 08:00:00 AM EST [facility] Name Value Range Interpretation Code Description Data Dayna rce(s) Supporting Document(s) SARS coronavirus 2 RNA Not Detected [facility] [place] This lab was ordered by [facility] and reported by [facility]. ID Date Data Source [id number] 06/19/2020 06:25:00 AM EST [facility] Name Value Range Interpretation Code Description Data Dayna rce(s) Supporting Document(s) SARS coronavirus 2 RNA Not Detected [facility] [place] This lab was ordered by [facility] and reported by [facility]. ID Date Data Source [id number] 06/12/2020 06:00:00 AM EST [facility] Name Value Range Interpretation Code Description Data Dayna rce(s) Supporting Document(s) SARS coronavirus 2 RNA Not Detected [facility] [place] This lab was ordered by [facility] and reported by [facility]. ID Date Data Source [id number] 06/05/2020 07:30:00 AM EST [facility] Name Value Range Interpretation Code Description Data Dayna rce(s) Supporting Document(s) SARS coronavirus 2 RNA Not Detected [facility] [place] This lab was ordered by [facility] and reported by [facility]. ID Date Data Source [id number] 05/29/2020 07:35:00 AM EST [facility] Name Value Range Interpretation Code Description Data Dayna rce(s) Supporting Document(s) SARS coronavirus 2 RNA [facility] This lab was ordered by [facility] and reported by [facility]. ID Date Data Source [id number] 05/22/2020 10:00:00 AM EST [facility] Name Value Range Interpretation Code Description Data Dayna rce(s) Supporting Document(s) SARS coronavirus 2 RNA [facility] This lab was ordered by [facility] and reported by [facility]. ID Date Data Source [id number] 05/17/2020 08:35:00 AM EST [facility] Name Value Range Interpretation Code Description Data Dayna rce(s) Supporting Document(s) SARS coronavirus 2 RNA [facility] This lab was ordered by [facility] and reported by [facility]. ID Date Data Source [id number] 05/17/2020 12:00:00 AM EST [facility] Name Value Range Interpretation Code Description Data Dayna rce(s) Supporting Document(s) SARS-CoV2 Rapid Antigen [facility] This lab was ordered by [facility] and reported by [facility]. ID Date Data Source [id number] 05/12/2020 02:42:00 PM EST [facility] Name Value Range Interpretation Code Description Data Dayna rce(s) Supporting Document(s) SARS coronavirus 2 RNA [facility] This lab was ordered by [facility] and reported by [facility]. Procedure Social History Code Duration Value Status Description Data Source(s ) Smoking 12/27/2020 12:00:00 AM EDT Never Smoker completed Never S moker eCW1 ([facility]) Smoking 12/27/2020 12:00:00 AM EDT Never Smoker completed Never S moker eCW1 ([facility]) Smoking 12/27/2020 12:00:00 AM EDT Never Smoker completed Never S moker eCW1 ([facility]) Smoking 12/27/2020 12:00:00 AM EDT Never Smoker completed Never S moker eCW1 ([facility]) Smoking 12/27/2020 12:00:00 AM EDT Never Smoker completed Never S moker eCW1 ([facility]) Smoking 12/27/2020 12:00:00 AM EDT Never Smoker completed Never S moker eCW1 ([facility]) Smoking 12/27/2020 12:00:00 AM EDT Never Smoker completed Never S moker eCW1 ([facility]) Smoking 10/23/2020 12:00:00 AM EDT Never Smoker completed Never S moker eCW1 ([facility]) Smoking 10/23/2020 12:00:00 AM EDT Never Smoker completed Never S moker eCW1 ([facility]) Smoking 10/23/2020 12:00:00 AM EDT Never Smoker completed Never S moker eCW1 ([facility]) Smoking 10/23/2020 12:00:00 AM EDT Never Smoker completed Never S moker eCW1 ([facility]) Smoking 10/23/2020 12:00:00 AM EDT Never Smoker completed Never S moker eCW1 ([facility]) Smoking 10/23/2020 12:00:00 AM EDT Never Smoker completed Never S moker eCW1 ([facility]) Smoking 09/06/2020 12:00:00 AM EDT Never Smoker completed Never S moker eCW1 ([facility]) Smoking 09/06/2020 12:00:00 AM EDT Never Smoker completed Never S moker eCW1 ([facility]) Smoking 09/06/2020 12:00:00 AM EDT Never Smoker completed Never S moker eCW1 ([facility]) Smoking 09/06/2020 12:00:00 AM EDT Never Smoker completed Never S moker eCW1 ([facility]) Smoking 09/06/2020 12:00:00 AM EDT Never Smoker completed Never S moker eCW1 ([facility]) Smoking 09/06/2020 12:00:00 AM EDT Never Smoker completed Never S moker eCW1 ([facility]) Smoking 09/06/2020 12:00:00 AM EDT Never Smoker completed Never S moker eCW1 ([facility]) Smoking 09/06/2020 12:00:00 AM EDT Never Smoker completed Never S moker eCW1 ([facility]) Smoking 09/06/2020 12:00:00 AM EDT Never Smoker completed Never S moker eCW1 ([facility]) Smoking 08/23/2020 12:00:00 AM EDT Never Smoker completed Never S moker eCW1 ([facility]) Smoking 06/14/2020 12:00:00 AM EST Never Smoker completed Never S moker eCW1 ([facility]) Smoking 06/14/2020 12:00:00 AM EST Never Smoker completed Never S moker eCW1 ([facility]) Smoking 06/14/2020 12:00:00 AM EST Never Smoker completed Never S moker eCW1 ([facility]) Smoking 06/14/2020 12:00:00 AM EST Never Smoker completed Never S moker eCW1 ([facility]) Smoking 06/14/2020 12:00:00 AM EST Never Smoker completed Never S moker eCW1 ([facility]) Smoking 06/14/2020 12:00:00 AM EST Never Smoker completed Never S moker eCW1 ([facility]) Smoking 06/14/2020 12:00:00 AM EST Never Smoker completed Never S moker eCW1 ([facility]) Smoking 06/14/2020 12:00:00 AM EST Never Smoker completed Never S moker eCW1 ([facility]) Smoking 06/14/2020 12:00:00 AM EST Never Smoker completed Never S moker eCW1 ([facility]) Smoking 06/14/2020 12:00:00 AM EST Never Smoker completed Never S moker eCW1 ([facility]) Smoking 06/14/2020 12:00:00 AM EST Never Smoker completed Never S moker eCW1 ([facility]) Smoking 06/14/2020 12:00:00 AM EST Never Smoker completed Never S moker eCW1 ([facility]) Smoking 06/14/2020 12:00:00 AM EST Never Smoker completed Never S moker eCW1 ([facility]) Smoking 04/04/2020 12:00:00 AM EST Never Smoker completed Never S moker eCW1 ([facility]) Smoking 04/04/2020 12:00:00 AM EST Never Smoker completed Never S moker eCW1 ([facility]) Smoking 04/04/2020 12:00:00 AM EST Never Smoker completed Never S moker eCW1 ([facility]) Smoking 04/04/2020 12:00:00 AM EST Never Smoker completed Never S moker eCW1 ([facility]) Smoking 04/04/2020 12:00:00 AM EST Never Smoker completed Never S moker eCW1 ([facility]) Smoking 04/04/2020 12:00:00 AM EST Never Smoker completed Never S moker eCW1 ([facility]) Smoking 04/04/2020 12:00:00 AM EST Never Smoker completed Never S moker eCW1 ([facility]) Smoking 04/04/2020 12:00:00 AM EST Never Smoker completed Never S moker eCW1 ([facility]) Smoking 04/04/2020 12:00:00 AM EST Never Smoker completed Never S moker eCW1 ([facility]) Smoking 04/04/2020 12:00:00 AM EST Never Smoker completed Never S moker eCW1 ([facility]) Vital Signs ID Date Data Source UNK Name Value Range Interpretation Code Description Data Source(s) Body weight 191.8 [lb_av] 191.8 [lb_av] eCW1 ([facility]) Body height 60.5 [in_i] 60.5 [in_i] eCW1 ([facility]) Body mass index (BMI) [Ratio] 36.84 kg/m2 36.84 kg/m2 eCW1 ([facility]) Heart rate 82 /min 82 /min eCW1 ([facility]) Respiratory rate 18 /min 18 /min eCW1 ([facility]) Body temperature 97.5 [degF] 97.5 [degF] eCW1 ( [facility]) Systolic blood pressure 130 mm[Hg] 130 mm[Hg] e CW1 ([facility]) Diastolic blood pressure 80 mm[Hg] 80 mm[Hg] eCW1 ([facility]) Systolic blood pressure 124 mm[Hg] 124 mm[Hg] e CW1 ([facility]) Body weight 220 [lb_av] 220 [lb_av] eCW1 ([facility]) Body height 60.5 [in_i] 60.5 [in_i] eCW1 ([facility]) Body mass index (BMI) [Ratio] 42.25 kg/m2 42.25 kg/m2 eCW1 ([facility]) Heart rate 73 /min 73 /min eCW1 ([facility]) Respiratory rate 18 /min 18 /min eCW1 ([facility]) Body temperature 97.5 [degF] 97.5 [degF] eCW1 ( [facility]) Diastolic blood pressure 76 mm[Hg] 76 mm[Hg] eCW1 ([facility]) Systolic blood pressure 125 mm[Hg] 125 mm[Hg] M EDENT ([facility], ) Diastolic blood pressure 80 mm[Hg] 80 mm[Hg] MEDENT ([facility], ) Heart rate 74 /min 74 /min MEDENT ([facility], ) Body height 61 [in_i] 61 [in_i] MEDENT ([facility], ) 5'1" Body weight 220.00 [lb_av] 220.00 [lb_av] MEDEN T ([facility], ) Body mass index (BMI) [Ratio] 41.6 kg/m2 41.6 k g/m2 MEDENT ([facility], ) [place] body weight 105 [lb_av] 105 [lb_av] MEDEN T ([facility], ) Respiratory rate 14 /min 14 /min MEDENT ( [facility], ) Body weight 210 [lb_av] 210 [lb_av] eCW1 ([facility]) Body height 60.5 [in_i] 60.5 [in_i] eCW1 ([facility]) Body mass index (BMI) [Ratio] 40.33 kg/m2 40.33 kg/m2 eCW1 ([facility]) Heart rate 88 /min 88 /min eCW1 ([facility]) Respiratory rate 18 /min 18 /min eCW1 ([facility]) Body temperature 97.8 [degF] 97.8 [degF] eCW1 ( [facility]) Systolic blood pressure 130 mm[Hg] 130 mm[Hg] e CW1 ([facility]) Diastolic blood pressure 72 mm[Hg] 72 mm[Hg] eCW1 ([facility]) Body weight 243 [lb_av] 243 [lb_av] eCW1 ([facility]) Body height 60.5 [in_i] 60.5 [in_i] eCW1 ([facility]) Body mass index (BMI) [Ratio] 46.67 kg/m2 46.67 kg/m2 eCW1 ([facility]) Heart rate 85 /min 85 /min eCW1 ([facility]) Respiratory rate 18 /min 18 /min eCW1 ([facility]) Body temperature 98.3 [degF] 98.3 [degF] eCW1 ( [facility]) Systolic blood pressure 124 mm[Hg] 124 mm[Hg] e CW1 ([facility]) Diastolic blood pressure 60 mm[Hg] 60 mm[Hg] eCW1 ([facility]) Body weight 240 [lb_av] 240 [lb_av] eCW1 ([facility]) Body height 60.5 [in_i] 60.5 [in_i] eCW1 ([facility]) Body mass index (BMI) [Ratio] 46.10 kg/m2 46.10 kg/m2 eCW1 ([facility]) Heart rate 82 /min 82 /min eCW1 ([facility]) Respiratory rate 18 /min 18 /min eCW1 ([facility]) Body temperature 98 [degF] 98 [degF] eCW1 ([facility]) Systolic blood pressure 125 mm[Hg] 125 mm[Hg] e CW1 ([facility]) Diastolic blood pressure 72 mm[Hg] 72 mm[Hg] eCW1 ([facility]) Patient Treatment Plan of Care Planned Activity Planned Date Details Description Data Source (s) Menthol (Topical Analgesic) 3.5 % 01/08/2021 12:00:00 AM EDT eCW1 ([facility]) Menthol (Topical Analgesic) 3.5 % 01/08/2021 12:00:00 AM EDT eCW1 ([facility]) Menthol (Topical Analgesic) 3.5 % 01/08/2021 12:00:00 AM EDT eCW1 ([facility]) Menthol (Topical Analgesic) 3.5 % 01/08/2021 12:00:00 AM EDT eCW1 ([facility]) Menthol (Topical Analgesic) 3.5 % 01/08/2021 12:00:00 AM EDT eCW1 ([facility]) Acetaminophen 325 MG Oral Tablet [Tylenol] 01/03/2021 12:00:00 AM E DT eCW1 ([facility]) Haloperidol 0.5 MG Oral Tablet 01/03/2021 12:00:00 AM EDT eCW1 ([facility]) Haloperidol 0.5 MG Oral Tablet 01/03/2021 12:00:00 AM EDT eCW1 ([facility]) Acetaminophen 325 MG Oral Tablet [Tylenol] 01/03/2021 12:00:00 AM E DT eCW1 ([facility]) Acetaminophen 325 MG Oral Tablet [Tylenol] 01/03/2021 12:00:00 AM E DT eCW1 ([facility]) Acetaminophen 325 MG Oral Tablet [Tylenol] 01/03/2021 12:00:00 AM E DT eCW1 ([facility]) Haloperidol 0.5 MG Oral Tablet 01/03/2021 12:00:00 AM EDT eCW1 ([facility]) Haloperidol 0.5 MG Oral Tablet 01/03/2021 12:00:00 AM EDT eCW1 ([facility]) Acetaminophen 325 MG Oral Tablet [Tylenol] 01/03/2021 12:00:00 AM E DT eCW1 ([facility]) Haloperidol 0.5 MG Oral Tablet 01/03/2021 12:00:00 AM EDT eCW1 ([facility]) Keflex 250 MG 12/27/2020 12:00:00 AM EDT eCW1 ([facility]) Keflex 250 MG 12/27/2020 12:00:00 AM EDT eCW1 ([facility]) Keflex 250 MG 12/27/2020 12:00:00 AM EDT eCW1 ([facility]) Keflex 250 MG 12/27/2020 12:00:00 AM EDT eCW1 ([facility]) Keflex 250 MG 12/27/2020 12:00:00 AM EDT eCW1 ([facility]) Keflex 250 MG 12/27/2020 12:00:00 AM EDT eCW1 ([facility]) Keflex 250 MG 12/27/2020 12:00:00 AM EDT eCW1 ([facility]) carbamide peroxide 65 MG/ML Otic Solution [Debrox] 12/19/2020 12 :00:00 AM EDT eCW1 ([facility]) NITROFURANTOIN, MACROCRYSTALS 100 MG Oral Capsule 10/02/2020 12: 00:00 AM EDT eCW1 ([facility]) NITROFURANTOIN, MACROCRYSTALS 100 MG Oral Capsule 10/02/2020 12: 00:00 AM EDT eCW1 ([facility]) Haloperidol 0.5 MG Oral Tablet 09/25/2020 12:00:00 AM EDT eCW1 ([facility]) Haloperidol 0.5 MG Oral Tablet 09/25/2020 12:00:00 AM EDT eCW1 ([facility]) Haloperidol 0.5 MG Oral Tablet 09/25/2020 12:00:00 AM EDT eCW1 ([facility]) Haloperidol 0.5 MG Oral Tablet 09/25/2020 12:00:00 AM EDT eCW1 ([facility]) Haloperidol 0.5 MG Oral Tablet 09/25/2020 12:00:00 AM EDT eCW1 ([facility]) Haloperidol 0.5 MG Oral Tablet 09/25/2020 12:00:00 AM EDT eCW1 ([facility]) Haloperidol 0.5 MG Oral Tablet 09/25/2020 12:00:00 AM EDT eCW1 ([facility]) Haloperidol 0.5 MG Oral Tablet 09/25/2020 12:00:00 AM EDT eCW1 ([facility]) Haloperidol 0.5 MG Oral Tablet 09/25/2020 12:00:00 AM EDT eCW1 ([facility]) Haloperidol 0.5 MG Oral Tablet 09/25/2020 12:00:00 AM EDT eCW1 ([facility]) Haloperidol 0.5 MG Oral Tablet 09/25/2020 12:00:00 AM EDT eCW1 ([facility]) Haloperidol 0.5 MG Oral Tablet 09/25/2020 12:00:00 AM EDT eCW1 ([facility]) Haloperidol 0.5 MG Oral Tablet 09/25/2020 12:00:00 AM EDT eCW1 ([facility]) Haloperidol 0.5 MG Oral Tablet 09/25/2020 12:00:00 AM EDT eCW1 ([facility]) Haloperidol 0.5 MG Oral Tablet 09/25/2020 12:00:00 AM EDT eCW1 ([facility]) Haloperidol 0.5 MG Oral Tablet 09/25/2020 12:00:00 AM EDT eCW1 ([facility]) quetiapine 25 MG Oral Tablet [Seroquel] 09/15/2020 12:00:00 AM EDT eCW1 ([facility]) quetiapine 25 MG Oral Tablet [Seroquel] 09/15/2020 12:00:00 AM EDT eCW1 ([facility]) quetiapine 25 MG Oral Tablet [Seroquel] 09/15/2020 12:00:00 AM EDT eCW1 ([facility]) carbamide peroxide 65 MG/ML Otic Solution [Debrox] 08/08/2020 12 :00:00 AM EST eCW1 ([facility]) carbamide peroxide 65 MG/ML Otic Solution [Debrox] 08/08/2020 12 :00:00 AM EST eCW1 ([facility]) carbamide peroxide 65 MG/ML Otic Solution [Debrox] 08/08/2020 12 :00:00 AM EST eCW1 ([facility]) carbamide peroxide 65 MG/ML Otic Solution [Debrox] 08/08/2020 12 :00:00 AM EST eCW1 ([facility]) carbamide peroxide 65 MG/ML Otic Solution [Debrox] 08/08/2020 12 :00:00 AM EST eCW1 ([facility]) carbamide peroxide 65 MG/ML Otic Solution [Debrox] 08/08/2020 12 :00:00 AM EST eCW1 ([facility]) carbamide peroxide 65 MG/ML Otic Solution [Debrox] 08/08/2020 12 :00:00 AM EST eCW1 ([facility]) carbamide peroxide 65 MG/ML Otic Solution [Debrox] 08/08/2020 12 :00:00 AM EST eCW1 ([facility]) carbamide peroxide 65 MG/ML Otic Solution [Debrox] 08/08/2020 12 :00:00 AM EST eCW1 ([facility]) carbamide peroxide 65 MG/ML Otic Solution [Debrox] 08/08/2020 12 :00:00 AM EST eCW1 ([facility]) carbamide peroxide 65 MG/ML Otic Solution [Debrox] 08/08/2020 12 :00:00 AM EST eCW1 ([facility]) Calcium-Vitamin D 600-400 MG-UNIT 07/07/2020 12:00:00 AM EST eCW1 ([facility]) Calcium-Vitamin D 600-400 MG-UNIT 07/07/2020 12:00:00 AM EST eCW1 ([facility]) Calcium-Vitamin D 600-400 MG-UNIT 07/07/2020 12:00:00 AM EST eCW1 ([facility]) Calcium-Vitamin D 600-400 MG-UNIT 07/07/2020 12:00:00 AM EST eCW1 ([facility]) Calcium-Vitamin D 600-400 MG-UNIT 07/07/2020 12:00:00 AM EST eCW1 ([facility]) Calcium-Vitamin D 600-400 MG-UNIT 07/07/2020 12:00:00 AM EST eCW1 ([facility]) Calcium-Vitamin D 600-400 MG-UNIT 07/07/2020 12:00:00 AM EST eCW1 ([facility]) Calcium-Vitamin D 600-400 MG-UNIT 07/07/2020 12:00:00 AM EST eCW1 ([facility]) Calcium-Vitamin D 600-400 MG-UNIT 07/07/2020 12:00:00 AM EST eCW1 ([facility]) Calcium-Vitamin D 600-400 MG-UNIT 07/07/2020 12:00:00 AM EST eCW1 ([facility]) Daily Multivitamin 1 06/12/2020 12:00:00 AM EST eCW1 ([facility]) Daily Multivitamin 1 06/12/2020 12:00:00 AM EST eCW1 ([facility]) Daily Multivitamin 1 06/12/2020 12:00:00 AM EST eCW1 ([facility]) Daily Multivitamin 1 06/12/2020 12:00:00 AM EST eCW1 ([facility]) Daily Multivitamin 1 06/12/2020 12:00:00 AM EST eCW1 ([facility]) Daily Multivitamin 1 06/12/2020 12:00:00 AM EST eCW1 ([facility]) Daily Multivitamin 1 06/12/2020 12:00:00 AM EST eCW1 ([facility]) Daily Multivitamin 1 06/12/2020 12:00:00 AM EST eCW1 ([facility]) Daily Multivitamin 1 06/12/2020 12:00:00 AM EST eCW1 ([facility]) Daily Multivitamin 1 06/12/2020 12:00:00 AM EST eCW1 ([facility]) Daily Multivitamin 1 06/12/2020 12:00:00 AM EST eCW1 ([facility]) Brimonidine tartrate 2 MG/ML Ophthalmic Solution 06/12/2020 12:00:0 0 AM EST eCW1 ([facility]) Daily Multivitamin 1 06/12/2020 12:00:00 AM EST eCW1 ([facility]) [employer] 16FR/40CM 1 04/05/2020 12:00:00 AM EST eCW1 ([facility]) [employer] 16FR/40CM 1 04/05/2020 12:00:00 AM EST eCW1 ([facility]) [employer] 16FR/40CM 1 04/05/2020 12:00:00 AM EST eCW1 ([facility]) [employer] 16FR/40CM 1 04/05/2020 12:00:00 AM EST eCW1 ([facility]) [facility] 16FR/40CM 1 04/05/2020 12:00:00 AM EST eCW1 ([facility]) [facility] 16FR/40CM 1 04/05/2020 12:00:00 AM EST eCW1 ([facility]) [facility] 16FR/40CM 1 04/05/2020 12:00:00 AM EST eCW1 ([facility]) [facility] 16FR/40CM 1 04/05/2020 12:00:00 AM EST eCW1 ([facility]) [facility] 16FR/40CM 1 04/05/2020 12:00:00 AM EST eCW1 ([facility]) [facility] 16FR/40CM 1 04/05/2020 12:00:00 AM EST eCW1 ([facility]) Lidocaine 4 % 04/04/2020 12:00:00 AM EST eCW1 ([facility]) Lidocaine 4 % 04/04/2020 12:00:00 AM EST eCW1 ([facility]) Lidocaine 4 % 04/04/2020 12:00:00 AM EST eCW1 ([facility]) Lidocaine 4 % 04/04/2020 12:00:00 AM EST eCW1 ([facility]) Lidocaine 4 % 04/04/2020 12:00:00 AM EST eCW1 ([facility]) Lidocaine 4 % 04/04/2020 12:00:00 AM EST eCW1 ([facility]) Lidocaine 4 % 04/04/2020 12:00:00 AM EST eCW1 ([facility]) Lidocaine 4 % 04/04/2020 12:00:00 AM EST eCW1 ([facility]) Lidocaine 4 % 04/04/2020 12:00:00 AM EST eCW1 ([facility]) Lidocaine 4 % 04/04/2020 12:00:00 AM EST eCW1 ([facility]) Nystatin 100 UNT/MG Topical Powder 03/27/2020 12:00:00 AM EDT eCW1 ([facility]) Nystatin 100 UNT/MG Topical Powder 03/27/2020 12:00:00 AM EDT eCW1 ([facility]) Nystatin 100 UNT/MG Topical Powder 03/27/2020 12:00:00 AM EDT eCW1 ([facility]) NITROFURANTOIN, MACROCRYSTALS 50 MG Oral Capsule 03/17/2020 12:00:0 0 AM EDT eCW1 ([facility]) NITROFURANTOIN, MACROCRYSTALS 50 MG Oral Capsule 03/17/2020 12:00:0 0 AM EDT eCW1 ([facility]) NITROFURANTOIN, MACROCRYSTALS 50 MG Oral Capsule 03/17/2020 12:00:0 0 AM EDT eCW1 ([facility]) NITROFURANTOIN, MACROCRYSTALS 50 MG Oral Capsule 03/17/2020 12:00:0 0 AM EDT eCW1 ([facility]) NITROFURANTOIN, MACROCRYSTALS 50 MG Oral Capsule 03/17/2020 12:00:0 0 AM EDT eCW1 ([facility]) NITROFURANTOIN, MACROCRYSTALS 50 MG Oral Capsule 03/17/2020 12:00:0 0 AM EDT eCW1 ([facility]) NITROFURANTOIN, MACROCRYSTALS 50 MG Oral Capsule 03/17/2020 12:00:0 0 AM EDT eCW1 ([facility]) NITROFURANTOIN, MACROCRYSTALS 50 MG Oral Capsule 03/17/2020 12:00:0 0 AM EDT eCW1 ([facility])
== END 2021-03-28 19:44 | disposition home or self-care (01) ==
LOC: EDBD 15:03 → M ED 15:03
DX: S70.02XA Contusion of left hip, initial encounter (principal); S80.12XA Contusion of left lower leg, initial encounter; W05.0XXA Fall from non-moving wheelchair, initial encounter; Y92.129 Unspecified place in nursing home as the place of occurrence of the external cause; Y93.9 Activity, unspecified; Y99.9 Unspecified external cause status; I10 Essential (primary) hypertension; G31.83 Neurocognitive disorder with Lewy bodies; N31.8 Other neuromuscular dysfunction of bladder; Z86.73 Personal history of transient ischemic attack (TIA), and cerebral infarction without residual deficits; M19.90 Unspecified osteoarthritis, unspecified site; Z79.82 Long term (current) use of aspirin; Z79.899 Other long term (current) drug therapy; Z88.5 Allergy status to narcotic agent; Z88.8 Allergy status to other drugs, medicaments and biological substances

== ENCOUNTER → 2021-03-28 | Outpatient (REF) | payer MEDICAID, MEDICARE, OTHER ==
[~2021-03-28] MED LIST changes: +ACETAMINOPHEN TAB 650MG DOSE (2X325MG) PO ONE; +ALBUTEROL 90 MCG/ACT 8GM HFA INHALER INH PRN; +ALBUTEROL SULFATE 2.5 MG/0.5 ML INH NEB SOLN INH PRN; +BAMLANIVIMAB 700 MG, ETESEVIMAB 1,400 MG in NS 250 ML IV ONE; +EPINEPHrine INJ 1 MG/ML 1ML AMP IM PRN; +NS 1,000 ML IV SCH; +diphenhydrAMINE 50MG/ML VIAL (J1200) IV ONE; +diphenhydrAMINE 50MG/ML VIAL (J1200) IV PRN; +methylPREDNISolone 125MG 2ML VIAL IV PRN
[2021-03-28 10:58] LABS: HEMATOCRIT 33.1 % (36.0-47.0); HEMOGLOBIN 10.8 g/dl (12.0-15.5); MEAN CORPUSCULAR HEMOGLOBIN 30.8 pg (27.0-33.0); MEAN CORPUSCULAR HGB CONC 32.6 g/dl (32.0-36.5); MEAN CORPUSCULAR VOLUME 94.3 fl (80.0-96.0); PLATELET COUNT, AUTOMATED 235 10^3/uL (150-450); RED BLOOD COUNT 3.51 10^6/uL (4.00-5.40); WHITE BLOOD COUNT 5.3 10^3/uL (4.0-10.0)
[2021-03-28 11:20] LABS: BLOOD UREA NITROGEN 12 MG/DL (7-18); CALCIUM LEVEL 8.4 MG/DL (8.8-10.2); CARBON DIOXIDE LEVEL 30 MEQ/L (21-32); CHLORIDE LEVEL 106 MEQ/L (98-107); CREATININE FOR GFR 0.49 MG/DL (0.55-1.30); GLOMERULAR FILTRATION RATE > 60.0 (>32); GLUCOSE, FASTING 133 MG/DL (70-100); POTASSIUM SERUM 3.9 MEQ/L (3.5-5.1); SODIUM LEVEL 140 MEQ/L (136-145)
== END ==
LOC: SKLAB2 09:42
PROVIDERS: ATTEND Internal Medicine
DX: U07.1 COVID-19 (principal)

== ENCOUNTER → 2021-03-30 | Outpatient (REF) | payer MEDICARE, OTHER, MEDICAID ==
[2021-03-30 09:41] LABS: HEMATOCRIT 33.2 % (36.0-47.0); HEMOGLOBIN 11.1 g/dl (12.0-15.5); MEAN CORPUSCULAR HEMOGLOBIN 31.2 pg (27.0-33.0); MEAN CORPUSCULAR HGB CONC 33.4 g/dl (32.0-36.5); MEAN CORPUSCULAR VOLUME 93.3 fl (80.0-96.0); PLATELET COUNT, AUTOMATED 251 10^3/uL (150-450); RED BLOOD COUNT 3.56 10^6/uL (4.00-5.40); WHITE BLOOD COUNT 8.6 10^3/uL (4.0-10.0)
[2021-03-30 10:06] LABS: BLOOD UREA NITROGEN 20 MG/DL (7-18); CALCIUM LEVEL 8.8 MG/DL (8.8-10.2); CARBON DIOXIDE LEVEL 28 MEQ/L (21-32); CHLORIDE LEVEL 105 MEQ/L (98-107); CREATININE FOR GFR 0.53 MG/DL (0.55-1.30); GLOMERULAR FILTRATION RATE > 60.0 (>32); GLUCOSE, FASTING 94 MG/DL (70-100); POTASSIUM SERUM 3.7 MEQ/L (3.5-5.1); SODIUM LEVEL 140 MEQ/L (136-145)
== END ==
LOC: SKLAB2 07:00
PROVIDERS: ATTEND Internal Medicine
DX: U07.1 COVID-19 (principal); Z79.899 Other long term (current) drug therapy

== ENCOUNTER → 2021-04-03 | Outpatient (REF) | payer MEDICARE, OTHER, MEDICAID ==
[2021-04-03 10:48] LABS: HEMATOCRIT 36.4 % (36.0-47.0); HEMOGLOBIN 11.9 g/dl (12.0-15.5); MEAN CORPUSCULAR HEMOGLOBIN 30.5 pg (27.0-33.0); MEAN CORPUSCULAR HGB CONC 32.7 g/dl (32.0-36.5); MEAN CORPUSCULAR VOLUME 93.3 fl (80.0-96.0); PLATELET COUNT, AUTOMATED 337 10^3/uL (150-450); WHITE BLOOD COUNT 8.9 10^3/uL (4.0-10.0)
[2021-04-03 11:15] LABS: BLOOD UREA NITROGEN 17 MG/DL (7-18); CALCIUM LEVEL 8.9 MG/DL (8.8-10.2); CARBON DIOXIDE LEVEL 25 MEQ/L (21-32); CHLORIDE LEVEL 108 MEQ/L (98-107); CREATININE FOR GFR 0.59 MG/DL (0.55-1.30); GLOMERULAR FILTRATION RATE > 60.0 (>32); GLUCOSE, FASTING 102 MG/DL (70-100); SODIUM LEVEL 139 MEQ/L (136-145)
== END ==
LOC: SKLAB2 04-02 08:21
PROVIDERS: ATTEND Internal Medicine
DX: U07.1 COVID-19 (principal); Z79.899 Other long term (current) drug therapy

== ENCOUNTER → 2021-04-04 | Outpatient (REF) | payer MEDICARE, OTHER, MEDICAID ==
[2021-04-04 10:05] LABS: HEMOGLOBIN 11.3 g/dl (12.0-15.5); MEAN CORPUSCULAR HEMOGLOBIN 31.8 pg (27.0-33.0); MEAN CORPUSCULAR HGB CONC 34.2 g/dl (32.0-36.5); PLATELET COUNT, AUTOMATED 316 10^3/uL (150-450); RED BLOOD COUNT 3.55 10^6/uL (4.00-5.40); WHITE BLOOD COUNT 8.7 10^3/uL (4.0-10.0)
[2021-04-04 10:32] LABS: BLOOD UREA NITROGEN 17 MG/DL (7-18); CALCIUM LEVEL 8.6 MG/DL (8.8-10.2); CARBON DIOXIDE LEVEL 28 MEQ/L (21-32); CHLORIDE LEVEL 110 MEQ/L (98-107); CREATININE FOR GFR 0.45 MG/DL (0.55-1.30); GLOMERULAR FILTRATION RATE > 60.0 (>32); GLUCOSE, FASTING 91 MG/DL (70-100); POTASSIUM SERUM 3.5 MEQ/L (3.5-5.1); SODIUM LEVEL 141 MEQ/L (136-145)
== END ==
LOC: SKLAB2 14:53
PROVIDERS: ATTEND Internal Medicine
DX: U07.1 COVID-19 (principal); Z79.899 Other long term (current) drug therapy

== ENCOUNTER → 2021-09-24 | Outpatient (REF) | payer MEDICARE, OTHER, MEDICAID ==
[~2021-09-24] MED LIST changes: -D31000TA2 PO; +LOSA50TA28 PO; -LOSA50TA88 PO; +VITA100093 PO
[2021-09-24 15:14] LABS: APPEARANCE, URINE CLOUDY (CLEAR); BILIRUBIN, URINE AUTO NEGATIVE (NEGATIVE); BLOOD, URINE BLOOD NEGATIVE (NEGATIVE); COLOR, URINE AMBER (YELLOW); GLUCOSE, URINE (UA) AUTO NEGATIVE (NEGATIVE); KETONE, URINE AUTO NEGATIVE (NEGATIVE); LEUKOCYTE ESTERASE, URINE AUTO 3+ (NEGATIVE); MUCUS, URINE SMALL (NEGATIVE); NITRITE, URINE AUTO POSITIVE (NEGATIVE); PROTEIN, URINE AUTO 2+ mg/dL (NEGATIVE); RBC, URINE AUTO 24 /HPF (0-3); SPECIFIC GRAVITY URINE AUTO 1.021 (1.002-1.035); SQUAMOUS EPITHELIAL CELL UR AU 4 /HPF (0-6); TRIPLE PHOSPHATE CRYSTALS SMALL; UROBILINOGEN, URINE AUTO 0.2 mg/dL (0.0-2.0); WBC, URINE AUTO 28 /HPF (0-3)
[2021-09-24 15:27] LABS: BACTERIA, URINE AUTO 3+ (NEGATIVE)
[2021-09-24 15:42] LABS: HEMOGLOBIN 11.4 g/dl (12.0-15.5); MEAN CORPUSCULAR HEMOGLOBIN 30.5 pg (27.0-33.0); MEAN CORPUSCULAR HGB CONC 32.6 g/dl (32.0-36.5); MEAN CORPUSCULAR VOLUME 93.6 fl (80.0-96.0); PLATELET COUNT, AUTOMATED 264 10^3/uL (150-450); RED BLOOD COUNT 3.74 10^6/uL (4.00-5.40); WHITE BLOOD COUNT 10.3 10^3/uL (4.0-10.0)
[2021-09-24 16:04] LABS: BLOOD UREA NITROGEN 21 MG/DL (7-18); CALCIUM LEVEL 9.2 MG/DL (8.8-10.2); CARBON DIOXIDE LEVEL 29 MEQ/L (21-32); CHLORIDE LEVEL 108 MEQ/L (98-107); CREATININE FOR GFR 0.76 MG/DL (0.55-1.30); GLOMERULAR FILTRATION RATE > 60.0 (>32); GLUCOSE, FASTING 146 MG/DL (70-100); POTASSIUM SERUM 3.7 MEQ/L (3.5-5.1); SODIUM LEVEL 140 MEQ/L (136-145)
== END ==
LOC: SKLAB7 08:29
PROVIDERS: ATTEND Internal Medicine
DX: I12.9 Hypertensive chronic kidney disease with stage 1 through stage 4 chronic kidney disease, or unspecified chronic kidney disease (principal); N18.9 Chronic kidney disease, unspecified; N39.0 Urinary tract infection, site not specified

== ENCOUNTER → 2021-09-24 | Outpatient (CLI) | payer MEDICARE, OTHER, MEDICAID | LOC: SKLAB7 04:44 | PROVIDERS: ATTEND Internal Medicine | DX: R41.82 Altered mental status, unspecified (principal) ==

== ENCOUNTER → 2021-10-04 | Outpatient (REF) | payer MEDICARE, OTHER, MEDICAID ==
[2021-10-04 12:12] LABS: APPEARANCE, URINE HAZY (CLEAR); BACTERIA, URINE AUTO 1+ (NEGATIVE); BILIRUBIN, URINE AUTO NEGATIVE (NEGATIVE); BLOOD, URINE BLOOD NEGATIVE (NEGATIVE); COLOR, URINE YELLOW (YELLOW); GLUCOSE, URINE (UA) AUTO NEGATIVE (NEGATIVE); KETONE, URINE AUTO TRACE mg/dL (NEGATIVE); LEUKOCYTE ESTERASE, URINE AUTO 2+ (NEGATIVE); MUCUS, URINE SMALL (NEGATIVE); NITRITE, URINE AUTO NEGATIVE (NEGATIVE); PROTEIN, URINE AUTO NEGATIVE (NEGATIVE); RBC, URINE AUTO 2 /HPF (0-3); SPECIFIC GRAVITY URINE AUTO 1.017 (1.002-1.035); SQUAMOUS EPITHELIAL CELL UR AU 7 /HPF (0-6); UROBILINOGEN, URINE AUTO 0.2 mg/dL (0.0-2.0); WBC, URINE AUTO 58 /HPF (0-3)
== END ==
LOC: SKLAB7 11:30
PROVIDERS: ATTEND Internal Medicine
DX: R30.0 Dysuria (principal)

== ENCOUNTER → 2021-10-18 | Outpatient (REF) | payer MEDICARE, OTHER, MEDICAID | LOC: SKLAB7 11:28 | PROVIDERS: ATTEND Nurse Practitioner | DX: E03.9 Hypothyroidism, unspecified (principal) ==

== ENCOUNTER → 2021-12-17 | Outpatient (REF) | payer MEDICARE, OTHER, MEDICAID | LOC: SKLAB7 11:41 | PROVIDERS: ATTEND Nurse Practitioner Family | DX: R41.82 Altered mental status, unspecified (principal); Z53.9 Procedure and treatment not carried out, unspecified reason ==

== ENCOUNTER → 2021-12-18 | Outpatient (REF) ==
[2021-12-18 08:16] LABS: APPEARANCE, URINE HAZY (CLEAR); BACTERIA, URINE AUTO 3+ (NEGATIVE); BILIRUBIN, URINE AUTO NEGATIVE (NEGATIVE); BLOOD, URINE BLOOD NEGATIVE (NEGATIVE); COLOR, URINE YELLOW (YELLOW); GLUCOSE, URINE (UA) AUTO NEGATIVE (NEGATIVE); KETONE, URINE AUTO NEGATIVE (NEGATIVE); LEUKOCYTE ESTERASE, URINE AUTO 3+ (NEGATIVE); NITRITE, URINE AUTO POSITIVE (NEGATIVE); PROTEIN, URINE AUTO NEGATIVE (NEGATIVE); RBC, URINE AUTO 1 /HPF (0-3); SPECIFIC GRAVITY URINE AUTO 1.008 (1.002-1.035); SQUAMOUS EPITHELIAL CELL UR AU 5 /HPF (0-6); UROBILINOGEN, URINE AUTO 0.2 mg/dL (0.0-2.0); WBC, URINE AUTO 27 /HPF (0-3)
== END ==
LOC: SKLAB7 07:00
PROVIDERS: ATTEND Internal Medicine
DX: R41.0 Disorientation, unspecified (principal)

== ENCOUNTER → 2021-12-23 | Outpatient (CLI) | payer MEDICARE, OTHER, MEDICAID | LOC: SKLAB7 02:47 | PROVIDERS: ATTEND Internal Medicine | DX: Z20.822 Contact with and (suspected) exposure to COVID-19 (principal) ==

== ENCOUNTER → 2021-12-24 | Outpatient (REF) | payer MEDICARE, OTHER, MEDICAID ==
[2021-12-24 11:18] LABS: HEMATOCRIT 35.5 % (36.0-47.0); HEMOGLOBIN 11.7 g/dl (12.0-15.5); MEAN CORPUSCULAR HEMOGLOBIN 30.4 pg (27.0-33.0); MEAN CORPUSCULAR VOLUME 92.2 fl (80.0-96.0); PLATELET COUNT, AUTOMATED 253 10^3/uL (150-450); RED BLOOD COUNT 3.85 10^6/uL (4.00-5.40); WHITE BLOOD COUNT 6.6 10^3/uL (4.0-10.0)
[2021-12-24 12:32] LABS: ALBUMIN 3.6 GM/DL (3.2-5.2); ALT/SGPT 23 U/L (12-78); BILIRUBIN,TOTAL 0.3 MG/DL (0.2-1.0); BLOOD UREA NITROGEN 17 MG/DL (7-18); CALCIUM LEVEL 9.3 MG/DL (8.8-10.2); CARBON DIOXIDE LEVEL 26 MEQ/L (21-32); CHLORIDE LEVEL 108 MEQ/L (98-107); CREATININE FOR GFR 0.56 MG/DL (0.55-1.30); GLOMERULAR FILTRATION RATE > 60.0 (>32); GLUCOSE, FASTING 88 MG/DL (70-100); POTASSIUM SERUM 4.1 MEQ/L (3.5-5.1); SODIUM LEVEL 142 MEQ/L (136-145); TOTAL PROTEIN 6.5 GM/DL (6.4-8.2)
== END ==
LOC: SKLAB2 07:00
PROVIDERS: ATTEND Internal Medicine
DX: U07.1 COVID-19 (principal); Z79.899 Other long term (current) drug therapy

== ENCOUNTER → 2021-12-27 | Outpatient (REF) | payer MEDICARE, OTHER, MEDICAID ==
[2021-12-27 09:53] LABS: HEMOGLOBIN 12.5 g/dl (12.0-15.5); MEAN CORPUSCULAR HEMOGLOBIN 31.4 pg (27.0-33.0); MEAN CORPUSCULAR HGB CONC 33.8 g/dl (32.0-36.5); PLATELET COUNT, AUTOMATED 280 10^3/uL (150-450); RED BLOOD COUNT 3.98 10^6/uL (4.00-5.40); WHITE BLOOD COUNT 8.1 10^3/uL (4.0-10.0)
[2021-12-27 10:23] LABS: ALBUMIN 3.6 GM/DL (3.2-5.2); ALT/SGPT 19 U/L (12-78); BILIRUBIN,TOTAL 0.3 MG/DL (0.2-1.0); BLOOD UREA NITROGEN 11 MG/DL (7-18); CALCIUM LEVEL 9.2 MG/DL (8.8-10.2); CARBON DIOXIDE LEVEL 27 MEQ/L (21-32); CHLORIDE LEVEL 110 MEQ/L (98-107); CREATININE FOR GFR 0.48 MG/DL (0.55-1.30); GLOMERULAR FILTRATION RATE > 60.0 (>32); GLUCOSE, FASTING 90 MG/DL (70-100); POTASSIUM SERUM 3.6 MEQ/L (3.5-5.1); SODIUM LEVEL 145 MEQ/L (136-145); TOTAL PROTEIN 6.5 GM/DL (6.4-8.2)
== END ==
LOC: SKLAB2 10:15
PROVIDERS: ATTEND Nurse Practitioner
DX: U07.1 COVID-19 (principal); Z79.899 Other long term (current) drug therapy

== ENCOUNTER → 2021-12-31 | Outpatient (REF) | payer MEDICARE, OTHER, MEDICAID ==
[2021-12-31 09:55] LABS: HEMATOCRIT 37.4 % (36.0-47.0); HEMOGLOBIN 12.4 g/dl (12.0-15.5); MEAN CORPUSCULAR HEMOGLOBIN 31.6 pg (27.0-33.0); MEAN CORPUSCULAR HGB CONC 33.2 g/dl (32.0-36.5); MEAN CORPUSCULAR VOLUME 95.4 fl (80.0-96.0); PLATELET COUNT, AUTOMATED 286 10^3/uL (150-450); RED BLOOD COUNT 3.92 10^6/uL (4.00-5.40); WHITE BLOOD COUNT 11.6 10^3/uL (4.0-10.0)
[2021-12-31 10:40] LABS: ALBUMIN 3.4 GM/DL (3.2-5.2); ALT/SGPT 22 U/L (12-78); BILIRUBIN,TOTAL 0.4 MG/DL (0.2-1.0); BLOOD UREA NITROGEN 26 MG/DL (7-18); CALCIUM LEVEL 9.1 MG/DL (8.8-10.2); CARBON DIOXIDE LEVEL 28 MEQ/L (21-32); CHLORIDE LEVEL 108 MEQ/L (98-107); CREATININE FOR GFR 0.53 MG/DL (0.55-1.30); GLOMERULAR FILTRATION RATE > 60.0 (>32); GLUCOSE, FASTING 104 MG/DL (70-100); POTASSIUM SERUM 3.1 MEQ/L (3.5-5.1); SODIUM LEVEL 140 MEQ/L (136-145)
== END ==
LOC: SKLAB2 09:37
PROVIDERS: ATTEND Nurse Practitioner
DX: U07.1 COVID-19 (principal); Z79.899 Other long term (current) drug therapy

== ENCOUNTER → 2022-01-15 | Outpatient (CLI) | payer MEDICARE, MEDICAID | LOC: M RAD 13:46 | PROVIDERS: ATTEND Nurse Practitioner | DX: G31.9 Degenerative disease of nervous system, unspecified (principal); R41.82 Altered mental status, unspecified; Z91.81 History of falling ==

== ENCOUNTER → 2022-01-15 | Outpatient (REF) | payer MEDICARE, OTHER, MEDICAID ==
[2022-01-15 15:20] LABS: HEMATOCRIT 38.3 % (36.0-47.0); HEMOGLOBIN 12.2 g/dl (12.0-15.5); MEAN CORPUSCULAR HEMOGLOBIN 30.1 pg (27.0-33.0); MEAN CORPUSCULAR HGB CONC 31.9 g/dl (32.0-36.5); MEAN CORPUSCULAR VOLUME 94.6 fl (80.0-96.0); PLATELET COUNT, AUTOMATED 310 10^3/uL (150-450); RED BLOOD COUNT 4.05 10^6/uL (4.00-5.40); WHITE BLOOD COUNT 9.9 10^3/uL (4.0-10.0)
[2022-01-15 15:42] LABS: ALBUMIN 3.5 GM/DL (3.2-5.2); ALT/SGPT 14 U/L (12-78); BILIRUBIN,TOTAL 0.2 MG/DL (0.2-1.0); BLOOD UREA NITROGEN 26 MG/DL (7-18); CALCIUM LEVEL 9.3 MG/DL (8.8-10.2); CARBON DIOXIDE LEVEL 25 MEQ/L (21-32); CHLORIDE LEVEL 107 MEQ/L (98-107); GLOMERULAR FILTRATION RATE > 60.0 (>32); GLUCOSE, FASTING 96 MG/DL (70-100); POTASSIUM SERUM 3.8 MEQ/L (3.5-5.1); SODIUM LEVEL 138 MEQ/L (136-145); TOTAL PROTEIN 6.5 GM/DL (6.4-8.2)
[2022-01-15 17:27] LABS: APPEARANCE, URINE MANUAL HAZY (CLEAR)
[2022-01-15 17:28] LABS: BILIRUBIN, URINE MANUAL NEGATIVE (NEGATIVE); COLOR, URINE MANUAL YELLOW (YELLOW); GLUCOSE, URINE (UA) MANUAL NEGATIVE (NEGATIVE); KETONE, URINE MANUAL NEGATIVE (NEGATIVE); LEUKOCYTE ESTERASE, URINE MAN POSITIVE (NEGATIVE); PROTEIN, URINE MANUAL TRACE mg/dL (NEGATIVE); UROBILINOGEN, URINE MANUAL NORMAL (NORMAL)
[2022-01-15 17:29] LABS: BLOOD URINE MANUAL POSITIVE (NEGATIVE); NITRITE, URINE MANUAL NEGATIVE (NEGATIVE)
[2022-01-15 18:08] LABS: BACTERIA, URINE SMALL AMOUNT; HYALINE CAST, URINE NONE SEEN /lpf (0-1); RBC, URINE NONE SEEN /hpf (0-3); TRANSITIONAL EPI CELLS, URINE SMALL AMOUNT /hpf; WBC, URINE TNTC /hpf (0-3)
[2022-01-15 18:09] LABS: SQUAMOUS EPITHELIAL CELL URINE SMALL AMOUNT /hpf (SMALL AMT)
== END ==
LOC: SKLAB7 13:03
PROVIDERS: ATTEND Nurse Practitioner
DX: R41.82 Altered mental status, unspecified (principal)

== ENCOUNTER → 2022-02-04 | Outpatient (REF) | payer MEDICARE, MEDICAID | LOC: SKLAB7 08:00 | PROVIDERS: ATTEND Nurse Practitioner | DX: Z79.899 Other long term (current) drug therapy (principal); I44.0 Atrioventricular block, first degree; I45.9 Conduction disorder, unspecified ==

== ENCOUNTER → 2022-05-09 | Outpatient (REF) | payer MEDICARE, MEDICAID ==
[2022-05-09 08:31] LABS: THYROID STIMULATING HORMONE 3.994 uIU/ML (0.55-4.78)
== END ==
LOC: SKLAB7 13:59
PROVIDERS: ATTEND Nurse Practitioner
DX: I10 Essential (primary) hypertension (principal); E03.9 Hypothyroidism, unspecified

== ENCOUNTER → 2022-05-14 | Outpatient (REF) | payer MEDICARE, MEDICAID ==
[2022-05-14 07:30] LABS: CHOLESTEROL RISK RATIO 2.41 (<5); LDL CHOLESTEROL 71.6 MG/DL (<100)
== END ==
LOC: SKLAB7 07:00
PROVIDERS: ATTEND Nurse Practitioner
DX: E78.5 Hyperlipidemia, unspecified (principal)

== ENCOUNTER → 2022-06-12 | Outpatient (REF) | payer MEDICARE, MEDICAID ==
[2022-06-12 09:48] LABS: HEMATOCRIT 36.7 % (36.0-47.0); HEMOGLOBIN 11.9 g/dl (12.0-15.5); MEAN CORPUSCULAR HEMOGLOBIN 30.5 pg (27.0-33.0); MEAN CORPUSCULAR HGB CONC 32.4 g/dl (32.0-36.5); MEAN CORPUSCULAR VOLUME 94.1 fl (80.0-96.0); PLATELET COUNT, AUTOMATED 293 10^3/uL (150-450); WHITE BLOOD COUNT 9.7 10^3/uL (4.0-10.0)
[2022-06-12 10:04] LABS: BLOOD UREA NITROGEN 16 MG/DL (9-23); CALCIUM LEVEL 8.5 MG/DL (8.3-10.6); CARBON DIOXIDE LEVEL 26 MMOL/L (20-31); CHLORIDE LEVEL 109 MMOL/L (98-107); CREATININE FOR GFR 0.51 MG/DL (0.55-1.30); GLOMERULAR FILTRATION RATE > 60.0 (>32); GLUCOSE, FASTING 93 MG/DL (74-106); POTASSIUM SERUM 4.3 MMOL/L (3.5-5.1); SODIUM LEVEL 142 MMOL/L (136-145)
== END ==
LOC: SKLAB7 08:33
PROVIDERS: ATTEND Nurse Practitioner
DX: R53.83 Other fatigue (principal); Z96.82 Presence of neurostimulator

== ENCOUNTER → 2022-06-25 | Outpatient (REF) | payer MEDICARE, MEDICAID ==
[2022-06-25 10:46] LABS: BASO % 0.5 % (0.0-1.0); EOS # 0.2 10^3/uL (0.0-0.5); EOS % 2.7 % (0.0-3.0); HEMATOCRIT 40.5 % (36.0-47.0); HEMOGLOBIN 12.7 g/dl (12.0-15.5); LYMPH # 4.5 10^3/uL (1.5-5.0); LYMPH % 52.9 % (24.0-44.0); MEAN CORPUSCULAR HEMOGLOBIN 30.5 pg (27.0-33.0); MEAN CORPUSCULAR HGB CONC 31.4 g/dl (32.0-36.5); MEAN CORPUSCULAR VOLUME 97.1 fl (80.0-96.0); MONO # 0.5 10^3/uL (0.0-0.8); MONO % 6.3 % (2.0-8.0); NEUTROPHILS # 3.2 10^3/uL (1.5-8.5); NEUTROPHILS % 37.2 % (36.0-66.0); PLATELET COUNT, AUTOMATED 214 10^3/uL (150-450); RED BLOOD COUNT 4.17 10^6/uL (4.00-5.40); WHITE BLOOD COUNT 8.5 10^3/uL (4.0-10.0)
[2022-06-25 11:05] LABS: APPEARANCE, URINE MANUAL HAZY (CLEAR); BILIRUBIN, URINE MANUAL NEGATIVE (NEGATIVE); BLOOD URINE MANUAL NEGATIVE (NEGATIVE); COLOR, URINE MANUAL YELLOW (YELLOW); GLUCOSE, URINE (UA) MANUAL NEGATIVE (NEGATIVE); KETONE, URINE MANUAL NEGATIVE (NEGATIVE); LEUKOCYTE ESTERASE, URINE MAN NEGATIVE (NEGATIVE); NITRITE, URINE MANUAL NEGATIVE (NEGATIVE); PROTEIN, URINE MANUAL NEGATIVE (NEGATIVE); SPECIFIC GRAVITY,URINE MANUAL 1.025 (1.002-1.035); UROBILINOGEN, URINE MANUAL NORMAL (NORMAL)
[2022-06-25 11:16] LABS: ALBUMIN 3.6 G/DL (3.2-5.2); ALKALINE PHOSPHATASE 59 U/L (46-116); ALT/SGPT 14 U/L (7.0-40); AST/SGOT 23 U/L (<34); BILIRUBIN,TOTAL 0.4 MG/DL (0.3-1.2); BLOOD UREA NITROGEN 18 MG/DL (9-23); CALCIUM LEVEL 8.9 MG/DL (8.3-10.6); CARBON DIOXIDE LEVEL 19 MMOL/L (20-31); CHLORIDE LEVEL 108 MMOL/L (98-107); CREATININE FOR GFR 0.48 MG/DL (0.55-1.30); GLOMERULAR FILTRATION RATE > 60.0 (>32); GLUCOSE, FASTING 123 MG/DL (74-106); POTASSIUM SERUM 4.2 MMOL/L (3.5-5.1); SODIUM LEVEL 141 MMOL/L (136-145); TOTAL PROTEIN 6.4 G/DL (5.7-8.2)
[2022-06-25 11:20] LABS: BACTERIA, URINE SMALL AMOUNT; HYALINE CAST, URINE NONE SEEN /lpf (0-1); MUCUS, URINE LARGE AMOUNT (NEGATIVE); RBC, URINE 0-1 /hpf (0-3); SQUAMOUS EPITHELIAL CELL URINE LARGE AMOUNT /hpf (SMALL AMT); YEAST, URINE MOD AMOUNT
== END ==
LOC: SKLAB7 00:38
PROVIDERS: ATTEND Internal Medicine
DX: R41.82 Altered mental status, unspecified (principal)

== ENCOUNTER → 2022-07-18 | Outpatient (REF) | payer MEDICARE, MEDICAID ==
[2022-07-18 10:34] LABS: HEMATOCRIT 39.6 % (36.0-47.0); HEMOGLOBIN 12.4 g/dl (12.0-15.5); MEAN CORPUSCULAR HEMOGLOBIN 30.9 pg (27.0-33.0); MEAN CORPUSCULAR HGB CONC 31.3 g/dl (32.0-36.5); MEAN CORPUSCULAR VOLUME 98.8 fl (80.0-96.0); PLATELET COUNT, AUTOMATED 294 10^3/uL (150-450); RED BLOOD COUNT 4.01 10^6/uL (4.00-5.40); WHITE BLOOD COUNT 10.9 10^3/uL (4.0-10.0)
[2022-07-18 10:50] LABS: ALBUMIN 3.5 G/DL (3.2-5.2); ALKALINE PHOSPHATASE 56 U/L (46-116); ALT/SGPT 13 U/L (7.0-40); AST/SGOT 15 U/L (<34); BILIRUBIN,TOTAL 0.4 MG/DL (0.3-1.2); BLOOD UREA NITROGEN 19 MG/DL (9-23); CALCIUM LEVEL 9.1 MG/DL (8.3-10.6); CARBON DIOXIDE LEVEL 24 MMOL/L (20-31); CHLORIDE LEVEL 108 MMOL/L (98-107); CHOLESTEROL LEVEL 133 MG/DL (<200); CHOLESTEROL RISK RATIO 2.48 (<5); CREATININE FOR GFR 0.52 MG/DL (0.55-1.30); GLOMERULAR FILTRATION RATE > 60.0 (>32); GLUCOSE, FASTING 136 MG/DL (74-106); HDL CHOLESTEROL 53.5 MG/DL (>40); LDL CHOLESTEROL 58.1 MG/DL (<100); NON-HDL-C 80 MG/DL; SODIUM LEVEL 142 MMOL/L (136-145); TOTAL PROTEIN 6.5 G/DL (5.7-8.2); TRIGLYCERIDES LEVEL 107 MG/DL (<150)
[2022-07-18 10:51] LABS: VITAMIN B12 LEVEL 884 PG/ML (211-911)
== END ==
LOC: SKLAB7 11:24
PROVIDERS: ATTEND Internal Medicine
DX: E03.9 Hypothyroidism, unspecified (principal); I10 Essential (primary) hypertension

== ENCOUNTER → 2022-07-22 | Outpatient (REF) | payer MEDICARE, MEDICAID | LOC: SKLAB7 14:01 | PROVIDERS: ATTEND Nurse Practitioner | DX: M16.0 Bilateral primary osteoarthritis of hip (principal); Z91.81 History of falling ==

== ENCOUNTER → 2022-11-12 | Outpatient (REF) | payer MEDICARE, MEDICAID ==
[~2022-11-12] MED LIST changes: +TIMO0.5S20 OU; -TIMO0.5S29 OU
[2022-11-12 15:04] LABS: APPEARANCE, URINE TURBID (CLEAR); BACTERIA, URINE AUTO 2+ (NEGATIVE); BILIRUBIN, URINE AUTO NEGATIVE (NEGATIVE); BLOOD, URINE BLOOD 1+ (NEGATIVE); COLOR, URINE AMBER (YELLOW); GLUCOSE, URINE (UA) AUTO NEGATIVE (NEGATIVE); GRANULAR CAST, URINE AUTO 22 /LPF; KETONE, URINE AUTO NEGATIVE (NEGATIVE); LEUKOCYTE ESTERASE, URINE AUTO 2+ (NEGATIVE); MUCUS, URINE MODERATE (NEGATIVE); NITRITE, URINE AUTO POSITIVE (NEGATIVE); PROTEIN, URINE AUTO 2+ mg/dL (NEGATIVE); RBC, URINE AUTO 54 /HPF (0-3); SPECIFIC GRAVITY URINE AUTO 1.021 (1.002-1.035); SQUAMOUS EPITHELIAL CELL UR AU 0 /HPF (0-6); TRIPLE PHOSPHATE CRYSTALS SMALL; UROBILINOGEN, URINE AUTO 0.2 mg/dL (0.0-2.0); WBC, URINE AUTO TNTC /HPF (0-3)
== END ==
LOC: SKLAB7 12:06
PROVIDERS: ATTEND Nurse Practitioner
DX: R41.82 Altered mental status, unspecified (principal); D72.829 Elevated white blood cell count, unspecified

== ENCOUNTER → 2022-11-12 | Outpatient (REF) | payer MEDICARE, MEDICAID ==
[2022-11-12 07:20] LABS: HEMATOCRIT 37.8 % (36.0-47.0); HEMOGLOBIN 12.3 g/dl (12.0-15.5); MEAN CORPUSCULAR HEMOGLOBIN 30.1 pg (27.0-33.0); MEAN CORPUSCULAR HGB CONC 32.5 g/dl (32.0-36.5); MEAN CORPUSCULAR VOLUME 92.6 fl (80.0-96.0); PLATELET COUNT, AUTOMATED 235 10^3/uL (150-450); RED BLOOD COUNT 4.08 10^6/uL (4.00-5.40); WHITE BLOOD COUNT 13.4 10^3/uL (4.0-10.0)
[2022-11-12 07:42] LABS: BLOOD UREA NITROGEN 17 MG/DL (9-23); CALCIUM LEVEL 8.2 MG/DL (8.3-10.6); CARBON DIOXIDE LEVEL 26 MMOL/L (20-31); CHLORIDE LEVEL 111 MMOL/L (98-107); CREATININE FOR GFR 0.52 MG/DL (0.55-1.30); GLOMERULAR FILTRATION RATE > 60.0 (>32); GLUCOSE, FASTING 95 MG/DL (74-106); POTASSIUM SERUM 3.4 MMOL/L (3.5-5.1); SODIUM LEVEL 145 MMOL/L (136-145)
== END ==
LOC: SKLAB7 09:22
PROVIDERS: ATTEND Nurse Practitioner
DX: R41.82 Altered mental status, unspecified (principal)

== ENCOUNTER → 2022-11-25 | Outpatient (REF) | payer MEDICARE, MEDICAID | LOC: SKLAB7 12:06 | PROVIDERS: ATTEND Nurse Practitioner | DX: M86.9 Osteomyelitis, unspecified (principal); Z98.890 Other specified postprocedural states ==

== ENCOUNTER → 2022-12-19 | Outpatient (REF) | payer MEDICARE, MEDICAID | LOC: SKLAB7 13:01 | PROVIDERS: ATTEND Nurse Practitioner Adult Health | DX: M79.605 Pain in left leg (principal); M17.12 Unilateral primary osteoarthritis, left knee; Z96.82 Presence of neurostimulator; M85.852 Other specified disorders of bone density and structure, left thigh; W19.XXXA Unspecified fall, initial encounter; Y92.129 Unspecified place in nursing home as the place of occurrence of the external cause; Y93.9 Activity, unspecified ==

== ENCOUNTER → 2023-01-02 | Outpatient (REF) | payer MEDICARE, MEDICAID ==
[2023-01-02 07:40] LABS: THYROID STIMULATING HORMONE 4.101 uIU/ML (0.55-4.78); TOTAL 25(OH) VITAMIN D 37.4 NG/ML (20.0-100.0)
== END ==
LOC: SKLAB7 07:00
PROVIDERS: ATTEND Nurse Practitioner
DX: E07.9 Disorder of thyroid, unspecified (principal); Z51.81 Encounter for therapeutic drug level monitoring; Z79.899 Other long term (current) drug therapy

== ENCOUNTER → 2023-01-16 | Outpatient (REF) | payer MEDICARE, MEDICAID ==
[2023-01-16 06:43] LABS: HEMATOCRIT 35.1 % (36.0-47.0); HEMOGLOBIN 11.6 g/dl (12.0-15.5); MEAN CORPUSCULAR HEMOGLOBIN 31.4 pg (27.0-33.0); MEAN CORPUSCULAR VOLUME 95.1 fl (80.0-96.0); PLATELET COUNT, AUTOMATED 254 10^3/uL (150-450); RED BLOOD COUNT 3.69 10^6/uL (4.00-5.40); WHITE BLOOD COUNT 13.4 10^3/uL (4.0-10.0)
[2023-01-16 07:07] LABS: ALBUMIN 3.6 G/DL (3.2-5.2); ALKALINE PHOSPHATASE 61 U/L (46-116); ALT/SGPT 17 U/L (7.0-40); AST/SGOT 26 U/L (<34); BILIRUBIN,TOTAL 0.5 MG/DL (0.3-1.2); BLOOD UREA NITROGEN 28 MG/DL (9-23); CARBON DIOXIDE LEVEL 24 MMOL/L (20-31); CHLORIDE LEVEL 110 MMOL/L (98-107); CREATININE FOR GFR 0.56 MG/DL (0.55-1.30); GLOMERULAR FILTRATION RATE > 60.0 (>32); GLUCOSE, FASTING 87 MG/DL (74-106); POTASSIUM SERUM 3.8 MMOL/L (3.5-5.1); SODIUM LEVEL 144 MMOL/L (136-145); TOTAL PROTEIN 6.2 G/DL (5.7-8.2)
== END ==
LOC: SKLAB7 07:00
PROVIDERS: ATTEND Nurse Practitioner
DX: I10 Essential (primary) hypertension (principal); E07.9 Disorder of thyroid, unspecified

== ENCOUNTER → 2023-04-04 | Outpatient (REF) | payer MEDICARE, MEDICAID | LOC: SKLAB6 13:02 | PROVIDERS: ATTEND Internal Medicine | DX: M19.072 Primary osteoarthritis, left ankle and foot (principal) ==

== ENCOUNTER → 2023-10-01 | Outpatient (REF) | payer MEDICARE, MEDICAID ==
[~2023-10-01] MED LIST changes: -ASPI-161 PO; +ASPI-615 PO; +MEMA10TA PO; -MEMA10TA19 PO
[2023-10-01 15:30] LABS: HEMOGLOBIN 11.3 g/dl (12.0-15.5); MEAN CORPUSCULAR HEMOGLOBIN 31.4 pg (27.0-33.0); MEAN CORPUSCULAR HGB CONC 32.3 g/dl (32.0-36.5); MEAN CORPUSCULAR VOLUME 97.2 fl (80.0-96.0); PLATELET COUNT, AUTOMATED 204 10^3/uL (150-450); WHITE BLOOD COUNT 10.3 10^3/uL (4.0-10.0)
[2023-10-01 15:50] LABS: BLOOD UREA NITROGEN 29 MG/DL (9-23); CALCIUM LEVEL 8.8 MG/DL (8.3-10.6); CARBON DIOXIDE LEVEL 28 MMOL/L (20-31); CHLORIDE LEVEL 110 MMOL/L (98-107); CREATININE FOR GFR 0.54 MG/DL (0.55-1.30); GLOMERULAR FILTRATION RATE > 60.0 (>32); GLUCOSE, FASTING 100 MG/DL (74-106); POTASSIUM SERUM 4.6 MMOL/L (3.5-5.1); SODIUM LEVEL 145 MMOL/L (136-145)
== END ==
LOC: SKLAB6 14:37
PROVIDERS: ATTEND Internal Medicine
DX: R41.82 Altered mental status, unspecified (principal)

== ENCOUNTER → 2023-12-05 | Outpatient (REF) | payer MEDICAID, MEDICARE ==
[~2023-12-05] MED LIST changes: -CRAN400C PO; +CRANBERRY400 MG PO
== END ==
LOC: SKLAB6 14:43
PROVIDERS: ATTEND Internal Medicine
DX: Z53.8 Procedure and treatment not carried out for other reasons (principal)

== ENCOUNTER → 2024-02-24 | Outpatient (REF) | payer MEDICARE, MEDICAID ==
[2024-02-24 11:08] LABS: HEMATOCRIT 34.5 % (36.0-47.0); MEAN CORPUSCULAR HEMOGLOBIN 30.8 pg (27.0-33.0); MEAN CORPUSCULAR HGB CONC 31.9 g/dl (32.0-36.5); MEAN CORPUSCULAR VOLUME 96.6 fl (80.0-96.0); PLATELET COUNT, AUTOMATED 255 10^3/uL (150-450); RED BLOOD COUNT 3.57 10^6/uL (4.00-5.40); WHITE BLOOD COUNT 11.5 10^3/uL (4.0-10.0)
[2024-02-24 11:36] LABS: BLOOD UREA NITROGEN 31 MG/DL (9-23); CALCIUM LEVEL 8.9 MG/DL (8.3-10.6); CARBON DIOXIDE LEVEL 29 MMOL/L (20-31); CHLORIDE LEVEL 111 MMOL/L (98-107); CREATININE FOR GFR 0.62 MG/DL (0.55-1.30); GLOMERULAR FILTRATION RATE > 60.0 (>32); GLUCOSE, FASTING 98 MG/DL (74-106); POTASSIUM SERUM 3.6 MMOL/L (3.5-5.1); SODIUM LEVEL 143 MMOL/L (136-145)
== END ==
LOC: SKLAB6 06:36
PROVIDERS: ATTEND Internal Medicine
DX: R41.82 Altered mental status, unspecified (principal)

== ENCOUNTER 2024-04-12 23:22 | Inpatient (IN) | payer MEDICARE, MEDICAID ==
[~2024-04-12] VITALS: Ht 167.6 cm; Wt 102.2 kg
[~2024-04-12 23:22] MED LIST changes: +NYST1POW3 TOP; -NYST1POW9 TOP
[2024-04-12 23:43] LABS: VENOUS BASE EXCESS 0.1 (-2.0-2.0); VENOUS HCO3 26.3 MMOL/L (23.0-27.0); VENOUS O2 SATURATION 54.9 % (60.0-80.0); VENOUS PARTIAL PRESSURE CO2 49.5 mmHg (38.0-50.0); VENOUS PARTIAL PRESSURE O2 31.5 mmHg (30.0-50.0); VENOUS PH 7.344 UNITS (7.330-7.430); VENOUS STANDARD HCO3 23.6 MMOL/L; VENOUS TOTAL CO2 27.9 MMOL/L (24.0-28.0)
[2024-04-13 00:10] LABS: INR 0.97; PARTIAL THROMBOPLASTIN TIME 26.3 SECONDS (24.8-34.2); PROTHROMBIN TIME 13.2 SECONDS (12.5-14.5)
[2024-04-13 00:11] LABS: ETHYL ALCOHOL (ETHANOL) < 0.003 % (0.000-0.010); LIPASE 20 U/L (12-53)
[2024-04-13 00:12] LABS: CK-MB VALUE MASS 14.2 NG/ML (<3.6)
[2024-04-13 00:13] LABS: AMYLASE 26 U/L (30-118)
[2024-04-13 00:14] LABS: CPK CREATINE PHOSPHOKINASE 248 U/L (34-145); MB/CK RELATIVE INDEX 5.72 (< OR =4)
[2024-04-13 00:16] LABS: BASO % 0.3 % (0.0-1.0); EOS # 0.1 10^3/uL (0.0-0.5); EOS % 1.1 % (0.0-3.0); LYMPH # 3.3 10^3/uL (1.5-5.0); LYMPH % 37.7 % (24.0-44.0); MEAN CORPUSCULAR HEMOGLOBIN 30.7 pg (27.0-33.0); MEAN CORPUSCULAR HGB CONC 32.4 g/dl (32.0-36.5); MEAN CORPUSCULAR VOLUME 94.6 fl (80.0-96.0); MONO # 0.6 10^3/uL (0.0-0.8); MONO % 6.9 % (2.0-8.0); NEUTROPHILS # 4.7 10^3/uL (1.5-8.5); NEUTROPHILS % 53.4 % (36.0-66.0); PLATELET COUNT, AUTOMATED 272 10^3/uL (150-450); RED BLOOD COUNT 3.91 10^6/uL (4.00-5.40); WHITE BLOOD COUNT 8.8 10^3/uL (4.0-10.0)
[2024-04-13 00:17] LABS: ALBUMIN 3.8 G/DL (3.2-5.2); ALKALINE PHOSPHATASE 77 U/L (35-104); ALT/SGPT 25 U/L (7.0-40); AST/SGOT 19 U/L (<34); BILIRUBIN,DIRECT < 0.1 MG/DL (<0.4); BILIRUBIN,TOTAL 0.3 MG/DL (0.3-1.2); BLOOD UREA NITROGEN 36 MG/DL (9-23); CALCIUM LEVEL 10.2 MG/DL (8.3-10.6); CARBON DIOXIDE LEVEL 28 MMOL/L (20-31); CHLORIDE LEVEL 113 MMOL/L (98-107); CREATININE FOR GFR 0.95 MG/DL (0.55-1.30); GLOMERULAR FILTRATION RATE 59.2 (>32); GLUCOSE, FASTING 140 MG/DL (74-106); POTASSIUM SERUM 4.9 MMOL/L (3.5-5.1); SODIUM LEVEL 147 MMOL/L (136-145); TOTAL PROTEIN 6.9 G/DL (5.7-8.2)
[2024-04-13] MEDS ORDERED: MAPA500C PO ×2 (00:26)
[2024-04-13] MEDS ORDERED: LOSA25TA13 PO (00:26)
[2024-04-13] MEDS ORDERED: SENO8.6T10 PO (00:26)
[2024-04-13] MEDS ORDERED: SORB70SO36 PO ×2 (00:26→01:54)
[2024-04-13] MEDS ORDERED: MIRT-89 PO ×2 (00:26→01:54)
[2024-04-13] MEDS ORDERED: TIMO0.5S20 OU (01:54)
[2024-04-13] MEDS ORDERED: ASPI81TA26 PO (01:54)
[2024-04-13] MEDS ORDERED: ACET-897 PO (01:54)
[2024-04-13] MEDS ORDERED: LOSA50TA28 PO (01:54)
[2024-04-13] MEDS ORDERED: SYNT50TA PO (01:54)
[2024-04-13] MEDS ORDERED: DULO30CA9 PO (01:54)
[2024-04-13] MEDS ORDERED: BISA10SU27 PR (01:54)
[2024-04-13] MEDS ORDERED: MOM30SS2 PO (01:54)
[2024-04-13] MEDS ORDERED: HOME MED LIST COMPLETE! XX SCH (01:55)
[2024-04-13 02:45] LABS: APPEARANCE, URINE CLOUDY (CLEAR); BACTERIA, URINE AUTO 2+ (NEGATIVE); BILIRUBIN, URINE AUTO NEGATIVE (NEGATIVE); BLOOD, URINE BLOOD NEGATIVE (NEGATIVE); COLOR, URINE AMBER (YELLOW); GLUCOSE, URINE (UA) AUTO NEGATIVE (NEGATIVE); KETONE, URINE AUTO TRACE mg/dL (NEGATIVE); LEUKOCYTE ESTERASE, URINE AUTO 3+ (NEGATIVE); MUCUS, URINE SMALL (NEGATIVE); NITRITE, URINE AUTO NEGATIVE (NEGATIVE); PROTEIN, URINE AUTO 2+ mg/dL (NEGATIVE); RBC, URINE AUTO 8 /HPF (0-3); SPECIFIC GRAVITY URINE AUTO 1.026 (1.002-1.035); SQUAMOUS EPITHELIAL CELL UR AU 2 /HPF (0-6); WBC, URINE AUTO 161 /HPF (0-3)
[2024-04-13 03:02] LABS: AMPHETAMINES LEVEL URINE NEGATIVE (NEGATIVE); BARBITURATES URINE NEGATIVE (NEGATIVE); CANNABINOIDS URINE NEGATIVE (NEGATIVE); COCAINE METABOLITE URINE NEGATIVE (NEGATIVE); METHADONE URINE NEGATIVE (NEGATIVE); OPIATES URINE NEGATIVE (NEGATIVE); PHENCYCLIDINE URINE NEGATIVE (NEGATIVE)
[2024-04-13 03:03] LABS: BENZODIAZEPINES URINE NEGATIVE (NEGATIVE)
[2024-04-13] MEDS: cefTRIAXone SOD 2 GM in DEXTROSE 5% (D5W) ADV/MINI-BAG 50 ML IV ONE (03:26)
[2024-04-13] MEDS ORDERED: cefTRIAXone SOD 1 GM in DEXTROSE 5% (D5W) ADV/MINI-BAG 50 ML IV SCH (05:00)
[2024-04-13] MEDS ORDERED: ONDANSETRON 4MG 2ML VIAL IV PRN (05:00)
[2024-04-13] MEDS: LR 1,000 ML IV SCH (05:34)
[2024-04-13] MEDS: LEVOTHYROXINE 50MCG TABLET (0.05MG) PO SCH (06:00)
[2024-04-13] MEDS ORDERED: BISACODYL 10MG SUPP PR PRN (07:05)
[2024-04-13] MEDS ORDERED: MOM 30ML SUSPENSION UDC PO PRN (07:05)
[2024-04-13 08:44] VITALS: BP 144/73; TEMP 97.9; O2SAT 90
[2024-04-13] MEDS: SORBITOL 70% 30ML UNIT DOSE CUP PO SCH (09:00)
[2024-04-13] MEDS: SENOKOT S TAB PO SCH (09:00)
[2024-04-13] MEDS: BRIMONIDINE 0.15% OPHTH SOLN 5 ML OU SCH (09:00)
[2024-04-13] MEDS: MEMANTINE 5MG TABLET (NAMENDA) PO SCH (09:00)
[2024-04-13] MEDS: DONEPEZIL 5 MG TAB PO SCH (09:00)
[2024-04-13] MEDS: TIMOLOL MALEATE 0.5% OPHTH SOLN 5 ML OU SCH (09:00)
[2024-04-13] MEDS: ASPIRIN 81MG ENTERIC TABLET PO SCH (10:08)
[2024-04-13] MEDS ORDERED: NYSTATIN 100,000 UNITS/GM TOPICAL PWD 15GM TOP PRN (10:10)
[2024-04-13 11:25] LABS: BASO % 0.3 % (0.0-1.0); EOS # 0.3 10^3/uL (0.0-0.5); EOS % 2.9 % (0.0-3.0); HEMATOCRIT 35.8 % (36.0-47.0); HEMOGLOBIN 11.5 g/dl (12.0-15.5); LYMPH # 5.6 10^3/uL (1.5-5.0); LYMPH % 56.3 % (24.0-44.0); MEAN CORPUSCULAR HEMOGLOBIN 30.8 pg (27.0-33.0); MEAN CORPUSCULAR HGB CONC 32.1 g/dl (32.0-36.5); MONO # 0.8 10^3/uL (0.0-0.8); MONO % 7.9 % (2.0-8.0); NEUTROPHILS # 3.2 10^3/uL (1.5-8.5); NEUTROPHILS % 32.3 % (36.0-66.0); PLATELET COUNT, AUTOMATED 237 10^3/uL (150-450); RED BLOOD COUNT 3.73 10^6/uL (4.00-5.40)
[2024-04-13 12:00] VITALS: BP 139/67; TEMP 97.9; O2SAT 89
[2024-04-13 12:00] LABS: ALBUMIN 3.4 G/DL (3.2-5.2); ALKALINE PHOSPHATASE 71 U/L (35-104); ALT/SGPT 26 U/L (7.0-40); AST/SGOT 27 U/L (<34); BILIRUBIN,TOTAL 0.3 MG/DL (0.3-1.2); BLOOD UREA NITROGEN 31 MG/DL (9-23); CALCIUM LEVEL 9.5 MG/DL (8.3-10.6); CARBON DIOXIDE LEVEL 23 MMOL/L (20-31); CHLORIDE LEVEL 115 MMOL/L (98-107); CREATININE FOR GFR 0.61 MG/DL (0.55-1.30); GLOMERULAR FILTRATION RATE > 60.0 (>32); GLUCOSE, FASTING 90 MG/DL (74-106); POTASSIUM SERUM 4.7 MMOL/L (3.5-5.1); SODIUM LEVEL 145 MMOL/L (136-145); TOTAL PROTEIN 6.4 G/DL (5.7-8.2)
[2024-04-13 20:00] VITALS: BP 103/71; TEMP 97.7; O2SAT 91
[2024-04-13] MEDS: MIRTAZAPINE 15 MG TAB PO SCH (21:50)
[2024-04-13] MEDS: DULoxetine 30MG CAPSULE (CYMBALTA) PO SCH (21:51)
[2024-04-13] MEDS: LATANOPROST 0.005% OPHTH SOLN 2.5 ML OU SCH (21:52)
[2024-04-13] MEDS: HALOPERIDOL 0.25MG PER 1/2 TABLET PO SCH (21:54)
[2024-04-13] MEDS: LOSARTAN 25 MG TAB PO SCH (22:06)
[2024-04-14] MEDS: cefTRIAXone SOD 1 GM in DEXTROSE 5% (D5W) ADV/MINI-BAG 50 ML IV SCH (02:57)
[2024-04-14 04:00] VITALS: BP 126/71; TEMP 97.7; O2SAT 96
[2024-04-14 05:26] LABS: BASO % 0.3 % (0.0-1.0); EOS # 0.4 10^3/uL (0.0-0.5); EOS % 3.7 % (0.0-3.0); HEMATOCRIT 33.3 % (36.0-47.0); HEMOGLOBIN 10.6 g/dl (12.0-15.5); LYMPH # 6.2 10^3/uL (1.5-5.0); LYMPH % 61.3 % (24.0-44.0); MEAN CORPUSCULAR HEMOGLOBIN 30.5 pg (27.0-33.0); MEAN CORPUSCULAR HGB CONC 31.8 g/dl (32.0-36.5); MONO # 0.6 10^3/uL (0.0-0.8); MONO % 6.3 % (2.0-8.0); NEUTROPHILS # 2.9 10^3/uL (1.5-8.5); NEUTROPHILS % 28.2 % (36.0-66.0); PLATELET COUNT, AUTOMATED 203 10^3/uL (150-450); RED BLOOD COUNT 3.47 10^6/uL (4.00-5.40); WHITE BLOOD COUNT 10.1 10^3/uL (4.0-10.0)
[2024-04-14 05:52] LABS: BLOOD UREA NITROGEN 23 MG/DL (9-23); CALCIUM LEVEL 8.9 MG/DL (8.3-10.6); CARBON DIOXIDE LEVEL 26 MMOL/L (20-31); CHLORIDE LEVEL 114 MMOL/L (98-107); GLOMERULAR FILTRATION RATE > 60.0 (>32); GLUCOSE, FASTING 86 MG/DL (74-106); MAGNESIUM LEVEL 1.9 MG/DL (1.8-2.4); POTASSIUM SERUM 3.9 MMOL/L (3.5-5.1); SODIUM LEVEL 146 MMOL/L (136-145)
[2024-04-14 12:00] VITALS: BP 122/74; TEMP 97.7; O2SAT 95
[2024-04-14] MEDS: ACETAMINOPHEN 650MG SUPP PR PRN (13:35)
[2024-04-14 20:00] VITALS: TEMP 97.9; O2SAT 91
[2024-04-14 21:24] VITALS: BP 122/74
[2024-04-15 04:00] VITALS: BP 120/99; TEMP 97.9; O2SAT 92
[2024-04-15 06:33] LABS: HEMATOCRIT 33.9 % (36.0-47.0); HEMOGLOBIN 11.1 g/dl (12.0-15.5); MEAN CORPUSCULAR HEMOGLOBIN 30.8 pg (27.0-33.0); MEAN CORPUSCULAR HGB CONC 32.7 g/dl (32.0-36.5); MEAN CORPUSCULAR VOLUME 94.2 fl (80.0-96.0); PLATELET COUNT, AUTOMATED 256 10^3/uL (150-450); WHITE BLOOD COUNT 10.3 10^3/uL (4.0-10.0)
[2024-04-15 06:48] LABS: BLOOD UREA NITROGEN 18 MG/DL (9-23); CALCIUM LEVEL 9.3 MG/DL (8.3-10.6); CARBON DIOXIDE LEVEL 28 MMOL/L (20-31); CHLORIDE LEVEL 111 MMOL/L (98-107); CREATININE FOR GFR 0.51 MG/DL (0.55-1.30); GLOMERULAR FILTRATION RATE > 60.0 (>32); GLUCOSE, FASTING 88 MG/DL (74-106); MAGNESIUM LEVEL 1.8 MG/DL (1.8-2.4); POTASSIUM SERUM 3.7 MMOL/L (3.5-5.1); SODIUM LEVEL 146 MMOL/L (136-145)
[2024-04-15 07:06] LABS: ATYPICAL LYMPH 5 % (0-5); EOSINOPHILS 6 % (0-3); LYMPHOCYTES 57 % (16-44); MONOCYTES 3 % (0-5); NEUTROPHILS 29 % (28-66); PLATELET ESTIMATE NORMAL (NORMAL)
[2024-04-15 07:07] LABS: POIKILOCYTOSIS 1+; POLYCHROMASIA 1+
[2024-04-15] MEDS ORDERED: CEFD1CAP9 PO (08:17)
== END 2024-04-15 12:28 | DRG 689 ==
LOC: M ED 23:22 → M ED INP 04-13 04:58 → M MSPAV 04-13 08:45
PROVIDERS: ADMIT Student in an Organized Health Care Education/Training Program; ATTEND Internal Medicine
DX: N39.0 Urinary tract infection, site not specified (principal); G93.41 Metabolic encephalopathy; R53.2 Functional quadriplegia; E87.0 Hyperosmolality and hypernatremia; B96.20 Unspecified Escherichia coli [E. coli] as the cause of diseases classified elsewhere; Z66 Do not resuscitate; G31.83 Neurocognitive disorder with Lewy bodies; I10 Essential (primary) hypertension; E03.9 Hypothyroidism, unspecified; F02.80 Dementia in other diseases classified elsewhere, unspecified severity, without behavioral disturbance, psychotic disturbance, mood disturbance, and anxiety; H40.10X0 Unspecified open-angle glaucoma, stage unspecified; N31.9 Neuromuscular dysfunction of bladder, unspecified; H35.30 Unspecified macular degeneration; M48.00 Spinal stenosis, site unspecified; K21.9 Gastro-esophageal reflux disease without esophagitis; F41.9 Anxiety disorder, unspecified; F32.A Depression, unspecified; M19.90 Unspecified osteoarthritis, unspecified site; E66.812 Obesity, class 2; Z99.3 Dependence on wheelchair; Z90.79 Acquired absence of other genital organ(s); Z98.41 Cataract extraction status, right eye; Z98.42 Cataract extraction status, left eye; Z96.652 Presence of left artificial knee joint; Z88.5 Allergy status to narcotic agent; Z88.8 Allergy status to other drugs, medicaments and biological substances; Z79.82 Long term (current) use of aspirin; Z79.890 Hormone replacement therapy; Z79.899 Other long term (current) drug therapy; Z86.73 Personal history of transient ischemic attack (TIA), and cerebral infarction without residual deficits; S00.83XA Contusion of other part of head, initial encounter; W06.XXXA Fall from bed, initial encounter; Y92.122 Bedroom in nursing home as the place of occurrence of the external cause; E86.0 Dehydration; Z68.36 Body mass index [BMI] 36.0-36.9, adult; M41.9 Scoliosis, unspecified

== ENCOUNTER → 2024-06-28 | Outpatient (REF) | payer MEDICARE, MEDICAID ==
[~2024-06-28] MED LIST changes: +ACET-897 PO; +ASPI81TA26 PO; +BISA10SU27 PR; +CEFD1CAP9 PO; +DULO30CA9 PO; +LOSA25TA13 PO; +MAPA500C PO; +MIRT-89 PO; +MOM30SS2 PO; +SENO8.6T10 PO; +SORB70SO36 PO; +SYNT50TA PO
[2024-06-28 14:27] LABS: HEMATOCRIT 38.3 % (36.0-47.0); MEAN CORPUSCULAR HEMOGLOBIN 30.6 pg (27.0-33.0); MEAN CORPUSCULAR HGB CONC 31.3 g/dl (32.0-36.5); MEAN CORPUSCULAR VOLUME 97.7 fl (80.0-96.0); PLATELET COUNT, AUTOMATED 251 10^3/uL (150-450); RED BLOOD COUNT 3.92 10^6/uL (4.00-5.40); WHITE BLOOD COUNT 11.5 10^3/uL (4.0-10.0)
[2024-06-28 15:08] LABS: BLOOD UREA NITROGEN 33 MG/DL (9-23); CALCIUM LEVEL 9.2 MG/DL (8.3-10.6); CARBON DIOXIDE LEVEL 29 MMOL/L (20-31); CHLORIDE LEVEL 112 MMOL/L (98-107); CREATININE FOR GFR 0.65 MG/DL (0.55-1.30); GLOMERULAR FILTRATION RATE > 60.0 (>32); GLUCOSE, FASTING 103 MG/DL (74-106); POTASSIUM SERUM 4.4 MMOL/L (3.5-5.1); SODIUM LEVEL 149 MMOL/L (136-145)
== END ==
LOC: SKLAB6 13:19
PROVIDERS: ATTEND Internal Medicine
DX: R63.8 Other symptoms and signs concerning food and fluid intake (principal)

== ENCOUNTER → 2024-07-02 | Outpatient (REF) | payer MEDICARE, MEDICAID ==
[2024-07-02 14:59] LABS: HEMATOCRIT 37.4 % (36.0-47.0); MEAN CORPUSCULAR HEMOGLOBIN 31.3 pg (27.0-33.0); MEAN CORPUSCULAR HGB CONC 32.1 g/dl (32.0-36.5); MEAN CORPUSCULAR VOLUME 97.4 fl (80.0-96.0); PLATELET COUNT, AUTOMATED 285 10^3/uL (150-450); RED BLOOD COUNT 3.84 10^6/uL (4.00-5.40)
[2024-07-02 15:34] LABS: BLOOD UREA NITROGEN 33 MG/DL (9-23); CALCIUM LEVEL 8.9 MG/DL (8.3-10.6); CARBON DIOXIDE LEVEL 28 MMOL/L (20-31); CHLORIDE LEVEL 109 MMOL/L (98-107); CREATININE FOR GFR 0.56 MG/DL (0.55-1.30); GLOMERULAR FILTRATION RATE > 60.0 (>32); GLUCOSE, FASTING 151 MG/DL (74-106); POTASSIUM SERUM 4.4 MMOL/L (3.5-5.1); SODIUM LEVEL 147 MMOL/L (136-145)
== END ==
LOC: SKLAB6 13:59
PROVIDERS: ATTEND Internal Medicine
DX: R63.8 Other symptoms and signs concerning food and fluid intake (principal)

== ENCOUNTER → 2024-07-05 | Outpatient (REF) | payer MEDICARE, MEDICAID ==
[2024-07-05 07:08] LABS: BLOOD UREA NITROGEN 28 MG/DL (9-23); CALCIUM LEVEL 8.7 MG/DL (8.3-10.6); CARBON DIOXIDE LEVEL 26 MMOL/L (20-31); CHLORIDE LEVEL 110 MMOL/L (98-107); CREATININE FOR GFR 0.53 MG/DL (0.55-1.30); GLOMERULAR FILTRATION RATE > 60.0 (>32); GLUCOSE, FASTING 85 MG/DL (74-106); POTASSIUM SERUM 4.4 MMOL/L (3.5-5.1); SODIUM LEVEL 145 MMOL/L (136-145)
== END ==
LOC: SKLAB6 07:00
PROVIDERS: ATTEND Internal Medicine
DX: N18.9 Chronic kidney disease, unspecified (principal)

== ENCOUNTER → 2024-08-10 | Outpatient (REF) | payer MEDICARE, MEDICAID ==
[2024-08-10 21:16] LABS: HEMATOCRIT 33.5 % (36.0-47.0); HEMOGLOBIN 10.7 g/dl (12.0-15.5); MEAN CORPUSCULAR HEMOGLOBIN 30.2 pg (27.0-33.0); MEAN CORPUSCULAR HGB CONC 31.9 g/dl (32.0-36.5); MEAN CORPUSCULAR VOLUME 94.6 fl (80.0-96.0); PLATELET COUNT, AUTOMATED 221 10^3/uL (150-450); RED BLOOD COUNT 3.54 10^6/uL (4.00-5.40); WHITE BLOOD COUNT 10.2 10^3/uL (4.0-10.0)
[2024-08-10 21:40] LABS: BLOOD UREA NITROGEN 37 MG/DL (9-23); CALCIUM LEVEL 8.3 MG/DL (8.3-10.6); CARBON DIOXIDE LEVEL 28 MMOL/L (20-31); CHLORIDE LEVEL 113 MMOL/L (98-107); CREATININE FOR GFR 0.71 MG/DL (0.55-1.30); GLOMERULAR FILTRATION RATE > 60.0 (>32); GLUCOSE, FASTING 151 MG/DL (74-106); POTASSIUM SERUM 4.3 MMOL/L (3.5-5.1); SODIUM LEVEL 151 MMOL/L (136-145)
== END ==
LOC: SKLAB6 16:24
PROVIDERS: ATTEND Internal Medicine
DX: N18.9 Chronic kidney disease, unspecified (principal); R63.8 Other symptoms and signs concerning food and fluid intake

== ENCOUNTER → 2024-08-12 | Outpatient (REF) | payer MEDICARE, MEDICAID ==
[2024-08-12 16:04] LABS: BLOOD UREA NITROGEN 29 MG/DL (9-23); CALCIUM LEVEL 8.2 MG/DL (8.3-10.6); CARBON DIOXIDE LEVEL 24 MMOL/L (20-31); CHLORIDE LEVEL 113 MMOL/L (98-107); CREATININE FOR GFR 0.48 MG/DL (0.55-1.30); GLOMERULAR FILTRATION RATE > 60.0 (>32); GLUCOSE, FASTING 126 MG/DL (74-106); SODIUM LEVEL 148 MMOL/L (136-145)
== END ==
LOC: SKLAB6 14:32
PROVIDERS: ATTEND Internal Medicine
DX: E87.0 Hyperosmolality and hypernatremia (principal)

== ENCOUNTER → 2024-09-09 | Outpatient (REF) | payer MEDICARE, MEDICAID ==
[2024-09-09 07:15] LABS: HEMATOCRIT 35.6 % (36.0-47.0); HEMOGLOBIN 11.3 g/dl (12.0-15.5); MEAN CORPUSCULAR HEMOGLOBIN 29.9 pg (27.0-33.0); MEAN CORPUSCULAR HGB CONC 31.7 g/dl (32.0-36.5); MEAN CORPUSCULAR VOLUME 94.2 fl (80.0-96.0); PLATELET COUNT, AUTOMATED 270 10^3/uL (150-450); RED BLOOD COUNT 3.78 10^6/uL (4.00-5.40); WHITE BLOOD COUNT 10.9 10^3/uL (4.0-10.0)
[2024-09-09 08:14] LABS: THYROID STIMULATING HORMONE 3.586 uIU/ML (0.55-4.78)
[2024-09-09 08:18] LABS: ALBUMIN 3.2 G/DL (3.2-5.2); BILIRUBIN,TOTAL 0.3 MG/DL (0.3-1.2); CALCIUM LEVEL 9.2 MG/DL (8.3-10.6); CHOLESTEROL RISK RATIO 3.7 (<5); CREATININE FOR GFR 0.51 MG/DL (0.55-1.30); GLOMERULAR FILTRATION RATE 89.7 (>32); HDL CHOLESTEROL 51.8 MG/DL (>40); LDL CHOLESTEROL 120.2 MG/DL (<100); NON-HDL-C 140.2 MG/DL; POTASSIUM SERUM 4.5 MMOL/L (3.5-5.1); TOTAL PROTEIN 6.3 G/DL (5.7-8.2)
== END ==
LOC: SKLAB6 07:00
PROVIDERS: ATTEND Internal Medicine
DX: E03.9 Hypothyroidism, unspecified (principal); E53.8 Deficiency of other specified B group vitamins